=== PATIENT | male | born 1960 | race Caucasian/White ===

== ENCOUNTER → 2019-08-30 00:01 | Outpatient (RCR) | payer OTHER, SELFPAY | LOC: ONCMED 08-26 08:12 | PROVIDERS: Family Provider Electrodiagnostic Medicine; Visit Provider Internal Medicine Hematology & Oncology | DX: Z51.11 Encounter for antineoplastic chemotherapy (principal); C61 Malignant neoplasm of prostate; D70.1 Agranulocytosis secondary to cancer chemotherapy; T45.1X5A Adverse effect of antineoplastic and immunosuppressive drugs, initial encounter; Z79.818 Long term (current) use of other agents affecting estrogen receptors and estrogen levels | CPT/HCPCS: 80053; 84153; 85025; 96367; 96372; 96402; 96413; 99214; J1100; J2469; J2505; J3490; J7050 ×2; J9171; J9217 ==

== ENCOUNTER 2019-09-12 05:54 | Outpatient (RCR) | payer BC, SELFPAY ==
[2019-09-12 09:29] LABS: Basophils % 0.3 %; Eosinophils % 0.4 %; Hematocrit 35.7 % (42.0-52.0); Hemoglobin 11.3 g/dL (11.7-16.6); Lymphocytes % 10.1 %; Mean Corpuscular HGB Conc 31.7 g/dL (30.0-36.0); Mean Corpuscular Volume 88.4 fL (80-94); Mean Platelet Volume 10.7 fL (7.4-10.4); Monocytes # 0.6 10^3/uL (0.2-0.9); Monocytes % 6.3 %; Neutrophils # 8.1 10^3/uL (1.8-7.7); Neutrophils % 80.6 %; Nucleated Red Blood Cells % 0 %; Platelet Count 170 10^3/cmm (130-400); Red Blood Count 4.04 10^6/uL (4.1-5.3); Red Cell Distribution Width 15.9 % (12.1-15.1); White Blood Count 10.1 10^3/uL (4.0-10.0)
[2019-09-12 09:42] LABS: Prostate Specific Antigen 1.44 ng/mL (0-4)
--- NOTE | 2019-09-12 14:27 | ONC FU_ITS ---
Dr. Michaels follow up note Patient: Cj Gleason Unit #: [id number]: 1960 Dicatated By: Priyanka Michaels M.D.Date of Visit:Sep 12, 2019 Onc Med Follow-up/Prog Note History of Present Illness: Mr. Cj Gleason, is a 59 -year-old gentleman with history of elevated PSA, underwent ultrasound-guided prostate biopsy on 12/31/2018, final pathology showed diffuse disease with large volume in each core, primarily [place] 4+4 with one area on the right lateral apex of [place] 4+5, patient underwent bone scan which showed no evidence of metastatic disease but CT scan of abdomen pelvis shows multiple bilateral enlarged pelvic lymph nodes and his PSA the time of diagnosis was 92. Started on bicalutamide 50 mg by mouth daily on 01/07/2019 Patient was referred to uro oncology clinic at [facility], for evaluation for clinical trial if available he was seen by on 04/20/2019 and his impression was patient is a candidate for clinical trial including VISION trial as well as neoantigen immunotherapy trial. And also recommended pretrial treatment with ADT with Lupron every 3 months and docetaxel every 3 weeks ???6 as long as tolerated otherwise minimum 3 cycles and and dose can be adjusted based on tolerability, and low-dose prednisone daily .Started on Taxotere/low-dose prednisone/Lupron on 05/17/2019 Completed 6 cycles of docetaxel/low-dose prednisone on 08/29/2019 Along with 3 monthly Lupron complaining of left posterior lower rib cage pain, as per patient he was washing his face bending down and when he turned up, all of a sudden he felt severe shooting pain in his left posterior lower rib cage fact like somebody stabbed him. But denies any history of trauma to his chest wall. Denies any overlying skin changes. Pain is more with the movement but not when he is still. Rib films done 06/06/2019 showed normal left hip films Came for follow-up, denies any specific complaints, no fever or chills, no nausea or vomiting, no diarrhea constipation has a small skin lesion on left upper forearm ventrum and said he was dealing with drywood for fireplace may have a bite. Now improving on its own Medications: Atorvastatin Calcium 1 Tablet (of 40 mg) Oral daily, bc powder 1 Capsule PRN, Ibuprofen 1 Tablet (of 200 mg) Oral daily PRN, Levaquin Tablet Oral PRN, Lisinopril 1 Tablet (of 10 mg) Oral daily, LORazepam 0.5 - 1 Tablet (of 1 mg) Oral at bedtime, Prochlorperazine Maleate 1 Tablet (of 10 mg) Oral q 4 hours PRN, Tamsulosin HCl 1 Capsule (of 0.4 mg) Oral b.i.d., ZyrTEC Allergy 1 Tablet (of 10 mg) Oral daily Allergies: No Known Allergies. Review of Systems: Constitutional - Appetite is good and weight is stable. No fever, chills, hot flashes, or night sweats. Energy level is fair, ENMT - No sinus congestion, positive for slight drainage. No mouth sores. No sore throat or difficulty swallowing, Hematologic/Lymphatic - No abnormal bruising or bleeding, Respiratory - No shortness of breath. No cough. No pleuritic pain or hemoptysis, Cardiovascular - No angina pain. No palpitations, Gastrointestinal - No nausea, no vomiting. No heartburn or acid reflux. No diarrhea or constipation. No blood in the stool or black stools, Genitourinary (M) - No dysuria or hematuria. No urinary frequency. No urgency or incontinence, Musculoskeletal - Pt denies pain today, Neurologic - Slight headache, no dizziness. Pt reports tingling/numbness in fingers, nothing in toes, Psychiatric - No anxiety or depression. No insomnia. Vital Signs: Performed on Sep 12, 2019 10:24 Height - 71.00 in Weight - 284 lbs (HIGH) BSA - 2.45 sq.m BMI - 39.61 (HIGH) Temperature - 97.8 F (LOW) Pulse - 71 /min Respiration - 17 /min BP - 148/87 mm(hg) (HIGH) O2 Sat - 97 % Performance Status: 1 - No physically strenuous activity, but ambulatory and able to carry out light or sedentary work (e.g. office work, light house work). (ECOG) Physical Examination: ENMT - No oral exudates, ulcers, masses, thrush or mucositis. Oropharynx clear. Tongue normal, Respiratory - Lungs are clear to auscultation without rhonchi or wheezing, Cardiovascular - Regular rate and rhythm of heart, Abdomen - Non-tender, non-distended, Good bowel sounds. No guarding or rebound tenderness. No pulsatile masses, Extremities - no edema. Lab/Imaging: Test performed on Sep 12, 2019 08:59 WBC 10.1 10 3/uL RBC 4.04 10^12/L HGB 11.3 g/dL HCT 35.7 % MCV 88.4 fL MCH 28.0 pg MCHC 31.7 g/dL Platelet Count 170 10^9/L RDW 15.9 % MPV 10.7 fL Lymphocytes 1.0 10^9/L Neutrophils 0.0 10 3/uL Monocytes 0.6 10^9/L Eosinophils 0.0 10^9/L Basophils 0.0 10^9/L Neutrophil % 0.4 % Manual Lymphocytes 10.1 % Manual Monocytes 6.3 % Manual Eosinophils 0.4 % Manual Basophils 0.3 % NRBCs 0.0 /100 WBC PSA 1.44 ng/mL Test performed on Aug 26, 2019 08:17 Lymphocyte % 19.6 % Monocyte % 9.9 % Eosinophil % 0.2 % Basophils % 0.4 % Test performed on Aug 26, 2019 08:10 Sodium 141 mmol/L Potassium 3.8 mmol/L Chloride 105 mmol/L CO2 25 mmol/L Anion Gap 14.8 BUN 18 mg/dL Creatinine 1.0 mg/dL Cr Clearance (Est) 142.1300 mL/min eGFR 76.2 mL/min Glucose 90 mg/dl Calcium 9.5 mg/dL Protein, Total 5.8 g/dL Albumin 4.5 g/dL Globulin 1.3 gm/dL Bilirubin, Total 0.4 mg/dL ALT (SGPT) 24 U/L AST (SGOT) 15 U/L Alkaline Phosphatase 130 U/L Test performed on Jun 27, 2019 10:18 Testosterone, Total 2.5 ng/dL Test performed on May 31, 2019 09:45 A/G Ratio 1.9 absolute value Manual Segs 22.8 % Manual Bands 2.9 % Metamyelocytes 3.0 % Impression: Adenocarcinoma prostate status post ultrasound guided prostate biopsy done on 12/31/2018 final pathology report showed diffuse disease with large volume in each core, primarily [place] 4+4 with one area on the right lateral apex of [place] 4+5 CT scan of abdomen pelvis done on 01/06/2019 showed pelvic lymphadenopathy, right iliac chain 18 mm, left iliac chain 9 mm, left pelvic sidewall 12 mm and presacral 7 mm lymph node. No inguinal or mesenteric lymph node enlargement seen no definite osseous metastatic disease. Questionable left L1 spinous process fracture Bone scan done on 01/06/2019 showed left posterior T12 vertebral level activity with no radiographic correlation otherwise unremarkable. as per recommendation by we will consider ADT with Lupron 22.5 mg every 3 months and docetaxel 75 mg/m??? every 3 weeks ???6, as long as tolerated and adjust dose if needed and plan to give him at least 3 cycles of chemotherapy prior to enrolling on clinical trial which include VISION trial or with neoantigen immunotherapy. And also consider low-dose prednisone 5 mg by mouth twice a day along with docetaxel treatment. We'll discontinue Casodex prescribed by urology. Started on docetaxel every 3 weeks and low-dose prednisone on 05/17/2019 and Completed 6 cycles of docetaxel/low-dose prednisone on 08/29/2019 started on 3 monthly dose of Lupron on 05/17/2019 Plan: Discussed with patient regarding his labs white blood count 10.1 hemoglobin 11.3 crit 35.7 platelets 170,000 absolute neutrophil count 10,100 Clinically, patient is doing well now recovering from docetaxel. CBC has recovered well, physically patient is feeling much better and improving, only question was left forearm skin lesion probably due to insect bite or questionable spider bite but is improving no skin sloughing was noted. No tenderness or discharge seen Patient was advised watch if there is a worsening then he need to go to emergency room for evaluation otherwise hopefully it will resolve. Patient is scheduled to go to urology oncology clinic at [facility] for evaluation for clinical trial on 09/21/2018. As patient will begin clinical trial so we will see him on as needed basis. Signed By: Priyanka Michaels M.D. <<Signature on File>>
== END 2019-09-30 23:59 | disposition home or self-care (01) ==
LOC: ONCMED 05:54
PROVIDERS: Family Provider Electrodiagnostic Medicine; PCP Electrodiagnostic Medicine; Visit Provider Internal Medicine Hematology & Oncology
DX: C61 Malignant neoplasm of prostate (principal); Z79.899 Other long term (current) drug therapy; Z79.818 Long term (current) use of other agents affecting estrogen receptors and estrogen levels; Z87.891 Personal history of nicotine dependence
CPT/HCPCS: 36415; 84153; 85025; 99214

== ENCOUNTER 2020-01-14 12:29 | Inpatient (IN) | payer BC, SELFPAY ==
--- NOTE | 2020-01-13 | SCC_ITS ---
PROCEDURE DONE: Bronchoscopy 1.8 seconds of fluoroscopic guidance, for a cumulative dose of 21.27 mGy, was provided to Dr. Sy by the radiology department. C-arm images of the chest were saved for the patient's permanent record. [facility]
[2020-01-14] VITALS (39 sets, daily range): BP systolic 64–151; BP diastolic 55–105; PULSE 76–187; RESP 14–43; TEMP 36.8; O2SAT 87–97; BMI 36.2
--- NOTE | 2020-01-14 12:59 | XRR_ITS ---
PROCEDURE INFORMATION: Exam: XR Chest, 1 View Exam date and time: 01/14/2020 1:01 PM Age: 59 years old Clinical indication: Shortness of breath; Additional info: Dyspnea TECHNIQUE: Imaging protocol: XR of the chest Views: 1 view. COMPARISON: CR Chest 1 [place] [id number] 08/17/2017 11:38 PM FINDINGS: Lungs: Stable right calcified hilar nodes and/or mediastinal nodes and/or lung nodules consistent with old granulomatous disease. Pleural space: Unremarkable. No pleural effusion. No pneumothorax. Heart/Mediastinum: Unremarkable. No cardiomegaly. Bones/joints: Unremarkable. XR/XR chest 1V portable [id number] IMPRESSION: No acute findings.
--- NOTE | 2020-01-14 13:01 | ED_ITS ---
HPI - Arrhythmia/Palpitations General: Chief Complaint: Arrhythmia/Palpitations Stated Complaint: high hr Time Seen by Provider: 01/14/20 12:52 History of Present Illness: HPI narrative: Patient is a 59 year old male presenting with a high heart rate. He notes that his heart rate has been high - at least 150 and up to 170 - when he checked h i BP at home - since THURSDAY. He denies chest pain or feeling like his heart is racing, but he has been very short of breath with mild exertion and has not been able to sleep at night. He notes that he has stage 4 prostate cancer with mets to the bone in a few places. He was admitted at [place] for his cancer until a few weeks ago and has been on prednisone - he says he was on 200 mg twice a day and is being tapered off - now on 40 mg twice a day. He doesn't think any other medicines have been changed recently. He has never had a blood clot and doesn't think he on any blood thinners. his PCP locally is Dr. Baker. He doesn't think he has had a heart attack but has been seen for angina before. He also notes that on Thursday his legs were swollen and tender, but that has improved. MD complaint: rapid heart beat Onset (ago): day(s) (6) Duration: constant Severity: severe Context: occurred during rest Associated symptoms: Reports muscle cramps and short of breath; Deny nausea Review of Systems General: Reports: 10 or more systems reviewed and unremarkable except in HPI and below Const: Reports: fatigue and change in sleep pattern; Denies: fever(s), chills or body aches Eyes: Denies: change in vision ENMT: Denies: odynophagia Card: Reports: swelling of feet/ankles, dyspnea on exertion and orthopnea; Denies: chest pain or lightheadedness Resp: Reports: dyspnea; Denies: productive cough or non-productive cough GI: Reports: constipation; Denies: abdominal pain or nausea : Denies: difficulty urinating or dysuria Musc: Reports: muscle cramps Skin/Breast: Reports: rash Neuro: Denies: headache(s), numbness in extremities or weakness in extremities Psych: Reports: sleeping less; Denies: depression Endo: Reports: polydipsia Benjamín/Lymph: Reports: easy bruising; Denies: easy bleeding PFS ED PFSH: Medical History (Updated 01/14/20 @ 18:33 by Ping Carcamo MD) Chronic steroid use Hyperlipidemia Metastasis Prostate cancer Social History Smoking and tobacco status: never smoked Physical Exam Const: COMMON NORMALS: patient oriented x3 HENMT: HEAD & SCALP: normal to inspection FACE & SINUS: normal facial exam Eye: COMMON NORMALS: Equal, round and reactive pupils present and EOMs intact bilaterally PUPIL: Yes Equal, round and reactive pupils present Neck/C-Spine: COMMON NORMALS: full ROM and no JVD Lymph: LYMPHATIC: no lymphadenopathy noted Chest: COMMONS NORMALS: normal inspection of the chest Resp: EFFORT & INSPECTION: Yes able to speak in complete sentences and Yes tachypneic AUSCULTATION: no rales, no rhonchi and bronchial breath sounds Cardio: COMMON NORMALS: no JVD, regular rate and Peripheral pulses 2+ throughout; negative for No murmurs present (Cardio) RATE: regular rate and tachycardic PERIPHERAL PULSES: Peripheral pulses 2+ throughout GI: COMMON NORMALS: Normal to inspection, nondistended, normoactive bowel sounds present, Soft to palpation and non-tender PALPATION: Yes Soft to palpation : COMMON NORMALS: Yes no CVA tenderness BLADDER/KIDNEY EXAM: Yes no CVA tenderness Back/Pelvis: COMMON NORMALS: no CVA tenderness and thoracic and lumbar spine n ormal to inspection Extremity: COMMON NORMALS: normal to inspection, full ROM, no calf tenderness and no pedal edema Neuro: COMMON NORMALS: patient oriented x3, moves all extremities and no sensory deficits noted Psych: COMMON NORMALS: mental status grossly normal, Normal thought process present, cooperative, normal affect, speech normal and activity/motor behavior normal SPEECH: Yes normal speech THOUGHT PROCESS: Normal thought process present Skin: RASHES: rashes noted (bilateral lower legs - right greater than left) Course ED course: multiple re-evaluations, medication adjustments, repeated fluid boluses, interpretation of multiple labs and tests. Reevaluation(s): Reevaluation #1: HR still 180 - cardizem 10 mg bolus and drip given and no change. Will rebolus and increase drip. Patient continues to be comfortable with no complaints. BP 133/90. Time: 14:47 Reevaluation #2: CT chest canceled - patient has a contrast allergy and the lidar technician also reports that a CT cannot be done unless the HR is less than 120 in order to get a useful contrast bolus in the vessels. Time: 17:25 Consultations: Consultation #1: Yun - discussed potential treatments, cardizem vs esmolol vs. amiodarone. He will come see the patient in the ED to decide which he would prefer. Vital Signs: Vital signs: Vital Signs Temperature 98.3 F 01/14/20 12:55 Pulse Rate 184 H 01/14/20 18:00 Respiratory Rate 23 H 01/14/20 18:00 Blood Pressure 151/98 01/14/20 18:00 Pulse Oximetry 89 L 01/14/20 18:00 MDM - Arrhythmia/Palpitations Lab Data: Labs: Lab Results 01/14/20 01/14/20 01/14/20 Range/Units 13:27 13:35 13:35 WBC 11.4 H (4.0-10.0) 10^3/ uL RBC 4.95 (4.1-5.3) 10^6/u L Hgb 13.0 (11.7-16.6) g/dL Hct 40.6 L (42.0-52.0) % MCV 82.0 (80-94) fL MCH 26.3 L (28.0-34.0) pg MCHC 32.0 (30.0-36.0) g/dL RDW 17.9 H (12.1-15.1) % Plt Count 121 L (130-400) 10^3/c mm MPV 9.7 (7.4-10.4) fL Neut % (Auto) 92.3 % Lymph % (Auto) 2.0 % [place] % (Auto) 4.5 % Eos % (Auto) 0.0 % Baso % (Auto) 0.1 % Neut # (Auto) 10.5 H (1.8-7.7) 10^3/u L Lymph # (Auto) 0.2 L (0.8-4.8) 10^3/u L [place] # (Auto) 0.5 (0.2-0.9) 10^3/u L Eos # (Auto) 0.0 (0.0-0.8) 10^3/u L Baso # (Auto) 0.0 (0.0-0.1) 10^3/u L Nucleated RBC % (a uto) 0 % Nucleated RBCs # 0.0 /100WBC PT 13.40 H (10.5-13.3) SECO NDS INR 0.99 (0.8-1.2) D-Dimer 4.51 H (0-0.59) ug/mIFE U Sodium (136-145) mmol/L Potassium (3.5-5.1) mmol/L Chloride (98-107) mmol/L Carbon Dioxide (22-29) mmol/L Anion Gap (5-19) BUN (8-23) mg/dL Creatinine (0.7-1.2) mg/dL GFR Calculation (90-130) mL/min Glucose (65-115) mg/dL Calculated Osmolal ity (285-295) mOsm/k g Lactate (0.5-2.2) mmol/L Calcium (8.5-10.5) mg/dL Magnesium (1.7-2.3) mg/dL Iron (59-158) ug/dL TIBC mcg/dl % Saturation (20-50) % Unsat Iron Binding (112-347) ug/dL Total Bilirubin (0.15-1.2) mg/dL AST (0-40) U/L ALT (0-41) U/L Alkaline Phosphata se (40-130) IU/L Troponin T Baselin e (0-15) ng/mL Troponin T 120 Min [place] (0-15) ng/mL Delta Troponin T (0-10) ABS# NT-Pro-B Natriuret Pep (0-125) pg/mL Total Protein (6.6-8.7) g/dL Albumin (3.5-5.2) g/dL Globulin (1.3-4.6) g/dL Procalcitonin (0-0.5) ng/mL Urine Color Yellow (Yellow) Urine Appearance Clear (CLEAR) Urine pH 7 (5-7) Ur Specific Gravit y 1.005 (1.005-1.030) Urine Protein Neg (Negative) Urine Glucose (UA) Norm (Normal) Urine Ketones Negative (Negative) Urine Blood Neg (Negative) Urine Nitrate Negative (Negative) Urine Bilirubin Neg (NEGATIVE) Urine Urobilinogen 1 H (Negative) mg/dL Ur Leukocyte Amy ase Negative (Negative) 01/14/20 01/14/20 01/14/20 Range/Units 13:35 13:35 13:35 WBC (4.0-10.0) 10^3/ uL RBC (4.1-5.3) 10^6/u L Hgb (11.7-16.6) g/dL Hct (42.0-52.0) % MCV (80-94) fL MCH (28.0-34.0) pg MCHC (30.0-36.0) g/dL RDW (12.1-15.1) % Plt Count (130-400) 10^3/c mm MPV (7.4-10.4) fL Neut % (Auto) % Lymph % (Auto) % [place] % (Auto) % Eos % (Auto) % Baso % (Auto) % Neut # (Auto) (1.8-7.7) 10^3/u L Lymph # (Auto) (0.8-4.8) 10^3/u L [place] # (Auto) (0.2-0.9) 10^3/u L Eos # (Auto) (0.0-0.8) 10^3/u L Baso # (Auto) (0.0-0.1) 10^3/u L Nucleated RBC % (a uto) % Nucleated RBCs # /100WBC PT (10.5-13.3) SECO NDS INR (0.8-1.2) D-Dimer (0-0.59) ug/mIFE U Sodium 138 (136-145) mmol/L Potassium 4.7 (3.5-5.1) mmol/L Chloride 102 (98-107) mmol/L Carbon Dioxide 23 (22-29) mmol/L Anion Gap 17.7 (5-19) BUN 25 H (8-23) mg/dL Creatinine 1.0 (0.7-1.2) mg/dL GFR Calculation 76.2 L (90-130) mL/min Glucose 146 H (65-115) mg/dL Calculated Osmolal ity 285 (285-295) mOsm/k g Lactate 2.4 H (0.5-2.2) mmol/L Calcium 8.3 L (8.5-10.5) mg/dL Magnesium 2.5 H (1.7-2.3) mg/dL Iron (59-158) ug/dL TIBC mcg/dl % Saturation (20-50) % Unsat Iron Binding (112-347) ug/dL Total Bilirubin 0.4 (0.15-1.2) mg/dL AST 9 (0-40) U/L ALT 38 (0-41) U/L Alkaline Phosphata se 61 (40-130) IU/L Troponin T Baselin e 106 H* (0-15) ng/mL Troponin T 120 Min [place] (0-15) ng/mL Delta Troponin T (0-10) ABS# NT-Pro-B Natriuret Pep 3660 H (0-125) pg/mL Total Protein 5.0 L (6.6-8.7) g/dL Albumin 3.5 (3.5-5.2) g/dL Globulin 1.5 (1.3-4.6) g/dL Procalcitonin (0-0.5) ng/mL Urine Color (Yellow) Urine Appearance (CLEAR) Urine pH (5-7) Ur Specific Gravit y (1.005-1.030) Urine Protein (Negative) Urine Glucose (UA) (Normal) Urine Ketones (Negative) Urine Blood (Negative) Urine Nitrate (Negative) Urine Bilirubin (NEGATIVE) Urine Urobilinogen (Negative) mg/dL Ur Leukocyte Amy ase (Negative) 01/14/20 01/14/20 Range/Units 15:56 15:56 WBC (4.0-10.0) 10^3/ uL RBC (4.1-5.3) 10^6/u L Hgb (11.7-16.6) g/dL Hct (42.0-52.0) % MCV (80-94) fL MCH (28.0-34.0) pg MCHC (30.0-36.0) g/dL RDW (12.1-15.1) % Plt Count (130-400) 10^3/c mm MPV (7.4-10.4) fL Neut % (Auto) % Lymph % (Auto) % [place] % (Auto) % Eos % (Auto) % Baso % (Auto) % Neut # (Auto) (1.8-7.7) 10^3/u L Lymph # (Auto) (0.8-4.8) 10^3/u L [place] # (Auto) (0.2-0.9) 10^3/u L Eos # (Auto) (0.0-0.8) 10^3/u L Baso # (Auto) (0.0-0.1) 10^3/u L Nucleated RBC % (a uto) % Nucleated RBCs # /100WBC PT (10.5-13.3) SECO NDS INR (0.8-1.2) D-Dimer (0-0.59) ug/mIFE U Sodium (136-145) mmol/L Potassium (3.5-5.1) mmol/L Chloride (98-107) mmol/L Carbon Dioxide (22-29) mmol/L Anion Gap (5-19) BUN (8-23) mg/dL Creatinine (0.7-1.2) mg/dL GFR Calculation (90-130) mL/min Glucose (65-115) mg/dL Calculated Osmolal ity (285-295) mOsm/k g Lactate (0.5-2.2) mmol/L Calcium (8.5-10.5) mg/dL Magnesium (1.7-2.3) mg/dL Iron 51 L (59-158) ug/dL TIBC 223 mcg/dl % Saturation 22.8 (20-50) % Unsat Iron Binding 172 (112-347) ug/dL Total Bilirubin (0.15-1.2) mg/dL AST (0-40) U/L ALT (0-41) U/L Alkaline Phosphata se (40-130) IU/L Troponin T Baselin e (0-15) ng/mL Troponin T 120 Min [place] 96.57 H (0-15) ng/mL Delta Troponin T -9.43 L (0-10) ABS# NT-Pro-B Natriuret Pep (0-125) pg/mL Total Protein (6.6-8.7) g/dL Albumin (3.5-5.2) g/dL Globulin (1.3-4.6) g/dL Procalcitonin 0.07 (0-0.5) ng/mL Urine Color (Yellow) Urine Appearance (CLEAR) Urine pH (5-7) Ur Specific Gravit y (1.005-1.030) Urine Protein (Negative) Urine Glucose (UA) (Normal) Urine Ketones (Negative) Urine Blood (Negative) Urine Nitrate (Negative) Urine Bilirubin (NEGATIVE) Urine Urobilinogen (Negative) mg/dL Ur Leukocyte Amy ase (Negative) EKG Data^: EKG 1: EKG interpretation date: 01/14/20 EKG interpretation time: 13:01 Interpretation: rate 186 - rhythm intederminant but regular. ST depression likely rate related. narrow complex Other EKG comments: Chest X-Ray 01/14/20 12:59 IMPRESSION: No acute findings. Critical Care Time Critical Care Time: Critical Care Time: Yes Total Critical Care Time: 60 Attestation: I spent 60 minutes on this patient. He was started on a cardizem bolus and drip and this was repeated and titrated multiple times without any response. We then tried IV metoprolol and his HR dropped to 125 and was consistent with flutter on the monitor although I did not get an EKG before it went back up. His BP got low and he was given another bolus of fluids, the cardizem was stopped, and another 5 mg IV metoprolol dose was given. Again it brought the HR down, but it went back up again. I ordered an esmolol drip and consulted the hospitalist. He requested to not do esmolol and will restart the cardizem and give oral metoprolol. He came to see the patient in the ED. I have ordered a PE CTA due to his risk with cancer, recent hospitalization and elevated d-dimer. Discharge Plan Discharge Patient Disposition: Admitted As Inpatient Admit Provider: Alfonso Razo Clinical Impression: Atrial flutter, Acute dyspnea, D-dimer, elevated Condition: Stable Coding Level of Care Code ED Laboratory Coordinator for [facility] Fwd Exam Comprehensive
[2020-01-14 13:46] LABS: Basophils % 0.1 %; Hematocrit 40.6 % (42.0-52.0); Lymphocytes # 0.2 10^3/uL (0.8-4.8); Mean Corpuscular Hemoglobin 26.3 pg (28.0-34.0); Mean Platelet Volume 9.7 fL (7.4-10.4); Monocytes # 0.5 10^3/uL (0.2-0.9); Monocytes % 4.5 %; Neutrophils # 10.5 10^3/uL (1.8-7.7); Neutrophils % 92.3 %; Nucleated Red Blood Cells % 0 %; Platelet Count 121 10^3/cmm (130-400); Red Blood Count 4.95 10^6/uL (4.1-5.3); Red Cell Distribution Width 17.9 % (12.1-15.1); White Blood Count 11.4 10^3/uL (4.0-10.0)
[2020-01-14] MEDS: sodium chloride 0.9% 500 ML 999 ML IV ×3 (13:47→15:48)
[2020-01-14 13:51] LABS: Add Urine Microscopic? NO
[2020-01-14 13:58] LABS: Bilirubin Urine Neg (NEGATIVE); Blood Urine Neg (Negative); Glucose Urine UA Norm (Normal); Ketones Urine Negative (Negative); Leukocyte Esterase Urine Negative (Negative); Nitrate Urine Negative (Negative); Protein Urine Neg (Negative); Specific Gravity, Urine 1.005 (1.005-1.030); Urine Appearance Clear (CLEAR); Urine Color Yellow (Yellow); Urobilinogen Urine 1 mg/dL (Negative); pH Urine 7 (5-7)
[2020-01-14 14:04] LABS: INR 0.99 (0.8-1.2)
[2020-01-14 14:10] LABS: Lactate (Lactic Acid level) 2.4 mmol/L (0.5-2.2)
[2020-01-14 14:14] LABS: D Dimer 4.51 ug/mIFEU (0-0.59)
[2020-01-14 14:20] LABS: Alanine Aminotransferase 38 U/L (0-41); Albumin Level 3.5 g/dL (3.5-5.2); Alkaline Phosphatase 61 IU/L (40-130); Anion Gap 17.7 (5-19); Aspartate Amino Transferase 9 U/L (0-40); Blood Urea Nitrogen 25 mg/dL (8-23); Calcium 8.3 mg/dL (8.5-10.5); Carbon Dioxide 23 mmol/L (22-29); Chloride 102 mmol/L (98-107); Creatinine Clr Calc Pharmacy 102.6151; Globulin 1.5 g/dL (1.3-4.6); Glomerular Filtration Rate 76.2 mL/min (90-130); Glucose 146 mg/dL (65-115); Magnesium 2.5 mg/dL (1.7-2.3); NT Pro B Type Natriuretic Pept 3660 pg/mL (0-125); Osmolality Calculated 285 mOsm/kg (285-295); Potassium 4.7 mmol/L (3.5-5.1); Sodium 138 mmol/L (136-145); Total Bilirubin 0.4 mg/dL (0.15-1.2)
[2020-01-14 14:38] LABS: Troponin(5th) Baseline 106 ng/mL (0-15)
--- NOTE | 2020-01-14 14:38 | PC.NURSE ---
Troponin 106
[2020-01-14] MEDS: enoxaparin 120 mg/0.8 mL Syringe SUBCUT (15:22)
[2020-01-14] MEDS: metoprolol tartrate 1 mg/1 mL SDV 5 mL 5 MG IV (15:48)
[2020-01-14 16:21] LABS: Troponin 5 2HR 96.57 ng/mL (0-15)
[2020-01-14] MEDS: metoprolol tartrate 50 mg Tablet PO (17:07)
--- NOTE | 2020-01-14 17:08 | P.HP_ITS ---
Providers/Chief Complaint Primary Care Provider: Jay Baker DO Chief Complaint: Palpitations, high heart rate History of Present Illness Cj Gleason is a 59 year old male with past medical history of prostate cancer with metastasis to bone in clinical trial treatment at [facility] with recent admission to [place] with for more than 11 days because of diarrhea where he was found to have colonic edema for which he is on steroid taper. Patient states since Thursday, today is Thursday patient has been having palpitations with his heart rate going up to 130s on his blood pressure monitor which he attributed to steroid taper. For last 2 days his heart rate is going up to 180 so he presented to the ER. His palpitations are all associated with shortness of breath which gets aggravated on mild exertion for last 3 days and on lying down flat. He does not have any chest pain, nausea, vomiting, dizziness, falls, headache, weakness in any of his arms, bleeding from anywhere, any diarrhea. In the ER patient was found to have be in atrial fibrillation/flutter with heart rate going up to 180s. Patient till now has received 2 boluses of Cardizem 10 mg with Cardizem drip going up to 13 and 2 boluses of Lopressor 5 which did bring down his heart rate down 200s but went up back to 180s persistently. On examination patient is lying comfortably in bed, pleasant, very conversant denies of having any difficulty in breathing during normal conversation. Patient was [facility] more than 11 days. He denies of having any symptoms of runny nose, cough, fever, flulike symptoms, sick contacts other than the fact that patient was admitted at [place]. Review of Systems Const: Denies: fever(s), chills, body aches, change in appetite, malaise, night sweats, diaphoresis, change in sleep pattern, daytime sleepiness or snoring Eyes: Denies: change in vision, blurry vision, photophobia, eye discomfort or eye discharge ENMT: Denies: throat pain, enlarged tonsils, hoarseness, mouth pain, oral sores, dry mouth, tinnitus, nasal congestion or post nasal drip Card: Reports: palpitations, irregular heart rhythm, lightheadedness and orthopnea; Denies: chest pain, edema, swelling of feet/ankles, syncope, pre-syncope, dysp dora on exertion, leg pain with exertion or acrocyanosis Resp: Reports: dyspnea and non-productive cough; Denies: productive cough, wheezing, stridor, pain on inspiration, change in phlegm color, hemoptysis or chest congestion GI: Denies: abdominal pain, nausea, vomiting, hematemesis, coffee ground emesis, dysphagia, heartburn, diarrhea, constipation, bloating, GI cramping, change in bowel habits, pain on defecation, hematochezia or melena : Denies: flank pain, difficulty urinating, dysuria, urinary frequency, urinary urgency, urinary hesitancy, urinary dribbling, difficulty starting urination, change in urine stream, nocturia or hematuria Musc: Denies: neck pain, back pain, extremity pain, joint pain, joint swelling, joint redness, joint stiffness or limited range of motion Neuro: Denies: headache(s), numbness in extremities, weakness in extremities, sensory changes, lack of coordination, difficulty walking, frequent falls, dizziness, vertigo, confusion, Slurred speech present, difficulty communicating thoughts or seizure-like activity Psych: Denies: anxiety, depression, mood swings, panic attacks, hopelessness or irritability Endo: Denies: polyuria, polydipsia, tired all the time, cold intolerance, excessive sweating, flushing or heat intolerance Benjamín/Lymph: Denies: easy bruising or easy bleeding All/Imm: Denies: tongue swelling, facial swelling or acute wheezing Medications/Allergies Home Medications Medication Instructions Recorded Confirmed Last Taken Type Bc Powder 1 packet PO PRN 01/14/20 01/14/20 Unknown History atorvastatin 40 mg PO DAILY 01/14/20 01/14/20 01/14/20 06:00 History cetirizine [Zyrtec] 10 mg PO DAILY PRN 01/14/20 01/14/20 Unknown History hydrocodone-acetaminophen 1 tab PO Q6H PRN 01/14/20 01/14/20 Unknown History loperamide 2 mg PO QID PRN 01/14/20 01/14/20 Unknown History lorazepam 1 mg PO TID PRN 01/14/20 01/14/20 01/14/20 06:00 History multivitamin [Multiple Vitamins] 1 tab PO DAILY 01/14/20 01/14/20 01/14/20 History pantoprazole 40 mg PO BID 01/14/20 01/14/20 01/14/20 History prednisone See Rx Instructions .ROUTE .COMPLEX 01/14/20 01/14/20 01/14/20 History prochlorperazine maleate 10 mg PO Q4H PRN 01/14/20 01/14/20 Unknown History sulfamethoxazole-trimethoprim See Rx Instructions .ROUTE .COMPLEX 01/14/20 01/14/20 01/13/20 History tamsulosin 0.4 mg PO BID 01/14/20 01/14/20 01/14/20 History Allergies Allergy/AdvReac Type Severity Reaction Status Date / Time Iodinated Contrast Media Allergy ALGY-Bliste Verified 01/14/20 13:43 r PFSH Acute PFSH: Medical History (Updated 01/14/20 @ 18:33 by Ping Carcamo MD) Chronic steroid use Hyperlipidemia Metastasis Prostate cancer Social History Smoking and tobacco status: never smoked Vitals/I&O/Wt Last Vital Signs Temp 98.3 F 01/14/20 12:55 Pulse 178 H 01/14/20 16:00 Resp 20 H 01/14/20 16:00 BP 125/101 01/14/20 16:00 Pulse Ox 94 01/14/20 16:00 01/14/20 01/14/20 01/14/20 06:59 14:59 22:59 Intake Total 501.917 / 501.917 532.550 / 1034.467 Balance 501.917 / 501.917 532.550 / 1034.467 Weight last 48 hrs Weight 117.934 kg Physical Exam Narrative: EXAM NARRATIVE: General: No acute distress, AO x3, pleasant gentleman HEENT: PERRLA, pupils bilaterally equal and reactive Chest: Normal vesicular breath sounds, bilateral lower zones fine crackles, equal good air entry bilaterally CVS: S1-S2 irregular irregular, tachycardia, JVD mildly elevated. Abdomen: Soft, nontender, no organomegaly, bowel sounds present Neuro: No focal deficits, no facial deformity, AO x3, power 5/5 in all limbs Extremities: Right lower limb mildly more swollen as compared to left. Bilateral lower limb swelling present. Data : 01/15/20 04:37 01/15/20 04:37 A&P Assessment and plan (1) Atrial fibrillation: Status: Acute (2) Prostate cancer: Status: Acute (3) Metastasis: Status: Acute (4) Chronic steroid use: Status: Acute (5) COVID-19 ruled out: Status: Acute (6) Hyperlipidemia: Status: Acute Additional A&P Information 59-year-old man with past medical history of prostate cancer on clinical trial with recent discharge from [facility] on steroid taper comes in with palpitations and tachycardia going on for last 6 days found to be in atrial fibrillation. Atrial fibrillation: Patient most likely has atrial flutter with fibrillation. Heart rate in the ER is in 180s. Patient has already received 2 boluses of Cardizem with Cardizem running at 13 and has received 2 boluses of Lopressor 5 mg. We will ask for a bolus of Cardizem at 10. Metoprolol 50 mg twice daily with first dose stat right now. If patient's heart rate does not improve the next 30 minutes we will start him on a dig load as worried about blood pressures dropping with multiple Cardizem pushes. Echocardiogram to rule out LA thrombus, for ejection fraction, structural abnormalities. Storm vas score 2, has bled score 1. Discussed with patient for need of him being on anticoagulation given that he has been on atrial fibrillation/flutter for more than 4 days now. Patient is agreeable. We will start patient on Eliquis 5 mg twice daily. Patient already received Lovenox full dose in the ER. Shortness of breath: Most likely because of heart failure from persistent tachycardia. Patient received 15 cc in the ER. IV Lasix 20 mg stat as patient is Lasix na?ve. Monitor input output. Daily weights. Patient has elevated d-dimer. Recent hospitalization for more than 11 days advanced which cannot rule out DVT/PE also given the history of active cancer. We will request for CTA PE protocol, lower limb Dopplers. COVID-19 rule out: Patient was recently admitted for 11 days [facility]. COVID-19 already sent from the ER. We will put on isolation till results come back. Prostate cancer with metastasis to bone: Patient is on steroid taper as per his oncologist. We will continue the same. We will request documents from [facility] regarding his recent admission. Continue with prophylactic Bactrim dose. Continue with tamsulosin 0.4 mg twice daily. Check TSH, lipid panel, HbA1c. Continue patient's chronic medications like hydrocodone, Ativan, pro-chlor perazine. Insulin sliding scale as patient is on high-dose steroids. Full code. Alejandro will also work as DVT prophylaxis Cardiac diet. 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
[2020-01-14 18:04] LABS: Procalcitonin 0.07 ng/mL (0-0.5)
[2020-01-14 18:14] LABS: Iron 51 ug/dL (59-158); Percent Saturation 22.8 % (20-50); Total Iron Binding Capacity 223 mcg/dl; Unsaturated Iron Binding 172 ug/dL (112-347)
[2020-01-14] MEDS: digoxin 250 mcg/ml INJ 2 mL 500 MCG IVP (18:37)
--- NOTE | 2020-01-14 18:59 | ECG_ITS ---
Measurements Intervals [place] Rate: 184 P: NM: 0 QRS: 12 QRSD: 74 T: 205 QT: 240 QTc: 420 ATRIAL FLUTTER WITH RVR POSSIBLE RIGHT VENTRICULAR CONDUCTION DELAY ST DEVIATION AND MODERATE T-WAVE ABNORMALITY, CONSIDER ANTEROLATERAL ISCHEMIA ST DEVIATION AND MODERATE T-WAVE ABNORMALITY, CONSIDER INFERIOR ISCHEMIA Compared to ECG 08/17/2017 22:51:00 T-wave abnormality now present Possible ischemia now present Sinus bradycardia no longer present Electronically Signed On 01-16-2020 20:31:18 CDT by Gabriella Huynh M.D. [id number]
[2020-01-14 19:00] LABS: Thyroid Stimulating Hormone 1.44 uIU/mL (0.27-4.20)
[2020-01-14 19:08] LABS: Estmated Average Glucose 163; Hemoglobin A1C 7.3 % (4.0-6.0)
[2020-01-14] MEDS: apixaban 5 mg Tablet PO (19:52)
[2020-01-14] MEDS: tamsulosin 0.4 mg Capsule PO (19:52)
[2020-01-14] MEDS: predniSONE 20 mg Tablet 40 MG PO (19:52)
[2020-01-14] MEDS: pantoprazole DR 40 mg Tablet PO (19:52)
[2020-01-14 20:22] LABS: Troponin 5 6HR Delta 7.2 ng/L (0-12)
[2020-01-14] MEDS: HYDROcodone-acetaminophen 5-325 mg Tablet 1 TAB PO (20:38)
[2020-01-14 20:47] LABS: Troponin 5 6HR 113.2 ng/mL (0-15)
[2020-01-15] VITALS (23 sets, daily range): BP systolic 86–132; BP diastolic 67–92; PULSE 72–141; RESP 14–28; TEMP 36.4–36.8; O2SAT 88–96
[2020-01-15] MEDS: HYDROcodone-acetaminophen 5-325 mg Tablet 1 TAB PO ×2 (01:05)
[2020-01-15] MEDS: digoxin 250 mcg/ml INJ 2 mL IVP ×2 (01:05→10:11)
[2020-01-15] MEDS: metoprolol tartrate 1 mg/1 mL SDV 5 mL 5 MG IV (03:23)
[2020-01-15 05:01] LABS: Hematocrit 36.5 % (42.0-52.0); Hemoglobin 11.7 g/dL (11.7-16.6); Lymphocytes # 0.3 10^3/uL (0.8-4.8); Lymphocytes % 3.6 %; Mean Corpuscular HGB Conc 32.1 g/dL (30.0-36.0); Mean Corpuscular Hemoglobin 26.9 pg (28.0-34.0); Mean Corpuscular Volume 83.9 fL (80-94); Mean Platelet Volume 9.6 fL (7.4-10.4); Monocytes # 0.3 10^3/uL (0.2-0.9); Monocytes % 3.6 %; Neutrophils % 91.7 %; Nucleated Red Blood Cells % 0 %; Platelet Count 101 10^3/cmm (130-400); Red Blood Count 4.35 10^6/uL (4.1-5.3); Red Cell Distribution Width 17.6 % (12.1-15.1); White Blood Count 7.6 10^3/uL (4.0-10.0)
[2020-01-15 05:25] LABS: Alanine Aminotransferase 33 U/L (0-41); Albumin Level 2.9 g/dL (3.5-5.2); Alkaline Phosphatase 57 IU/L (40-130); Anion Gap 16.4 (5-19); Aspartate Amino Transferase 8 U/L (0-40); Blood Urea Nitrogen 21 mg/dL (8-23); Calcium 8.4 mg/dL (8.5-10.5); Carbon Dioxide 24 mmol/L (22-29); Chloride 104 mmol/L (98-107); Globulin 1.6 g/dL (1.3-4.6); Glomerular Filtration Rate 86.1 mL/min (90-130); Glucose 142 mg/dL (65-115); Osmolality Calculated 289 mOsm/kg (285-295); Potassium 4.4 mmol/L (3.5-5.1); Sodium 140 mmol/L (136-145); Total Bilirubin 0.4 mg/dL (0.15-1.2); Total Protein 4.5 g/dL (6.6-8.7)
[2020-01-15 05:29] LABS: Chol HDL Ratio 3.21 mg/dL (1.0-5.00); Cholesterol 154 mg/dL (0-200); HDL Cholesterol 48 mg/dL (60-100); LDL Cholesterol Calculated 81 mg/dL (50-129); Triglycerides 127 mg/dL (0-150); VLDL Cholestrol Calculation 25 mg/dL (0-30)
--- NOTE | 2020-01-15 06:00 | USR_ITS ---
PROCEDURE INFORMATION: Exam: US Duplex Lower Extremity Veins, Bilateral Exam date and time: 01/15/2020 3:43 PM Age: 59 years old Clinical indication: Swelling (edema) of limb; Lower extremity, bilateral; Additional info: R/O dvt TECHNIQUE: Imaging protocol: Real-time duplex ultrasound of the extremities with 2-D musa scale, color Doppler flow and spectral waveform analysis with image documentation. Complete exam focused on the bilateral lower extremity veins. COMPARISON: No relevant prior studies available. FINDINGS: Right deep veins: Unremarkable. The common femoral, femoral, proximal profunda femoral and popliteal veins are patent without thrombus. Normal Doppler waveforms. Normal compressibility and/or augmentation response. There is a small vessel in the mid calf in the region of the gastrocnemius muscle with possible thrombus. Right superficial veins: Saphenofemoral junction is patent without thrombus. Left deep veins: Unremarkable. The common femoral, femoral, proximal profunda femoral and popliteal veins are patent without thrombus. Normal Doppler waveforms. Normal compressibility and/or augmentation response. Left superficial veins: Saphenofemoral junction is patent without thrombus. Soft tissues: Unremarkable. US/[place] [address] IMPRESSION: No evidence of deep vein thrombosis of the common femoral, femoral, profundal femoral, and popliteal veins bilaterally. There is a small vessel in the region of the right gastrocnemius muscle with possible thrombus. This is not optimally visualized.
[2020-01-15] MEDS: dilTIAZem 60 mg Tablet PO ×3 (08:24→22:02)
[2020-01-15] MEDS: tamsulosin 0.4 mg Capsule PO ×2 (08:24→17:45)
[2020-01-15] MEDS: FUROsemide 20 mg Tablet PO (08:24)
[2020-01-15] MEDS: apixaban 5 mg Tablet PO ×2 (08:24→17:45)
[2020-01-15] MEDS: aspirin 81 mg EC Tablet PO (08:24)
[2020-01-15] MEDS: atorvastatin 40 mg Tablet PO (08:24)
[2020-01-15] MEDS: pantoprazole DR 40 mg Tablet PO ×2 (08:24→17:45)
[2020-01-15] MEDS: metoprolol tartrate 50 mg Tablet PO ×2 (08:25→17:44)
[2020-01-15] MEDS: predniSONE 20 mg Tablet 40 MG PO ×2 (08:25→17:45)
--- NOTE | 2020-01-15 09:22 | PM.PN ---
Subjective Subjective: Interval history: No acute events overnight. Patient's heart rate is better controlled. On average patient's heart rate has maintained around 98?110 overnight. Patient is continue to be on Cardizem drip at 10. COVID-19 test is negative. Patient denies of having any nausea, vomiting, headache, dizziness. Vitals/I&O/Wt Last Vital Signs Temp 98.3 F 01/14/20 12:55 Pulse 94 01/15/20 04:30 Resp 21 H 01/15/20 04:30 BP 113/80 01/15/20 04:30 Pulse Ox 93 01/15/20 04:30 01/14/20 01/15/20 01/15/20 22:59 06:59 14:59 Intake Total 1480.800 / 1981.717 183.050 / 2165.767 22.25 / 22.25 Output Total 800 / 800 Balance 1480.800 / 1981.717 -616.950 / 1365.767 22.25 / .25 Weight last 48 hrs Weight 117.934 kg Physical Exam Narrative: EXAM NARRATIVE: General: No acute distress, AO x3, pleasant gentleman HEENT: PERRLA, pupils bilaterally equal and reactive Chest: Normal vesicular breath sounds, bilateral lower zones fine crackles, equal good air entry bilaterally CVS: S1-S2 irregular irregular, tachycardia, JVD mildly elevated. Abdomen: Soft, nontender, no organomegaly, bowel sounds present Neuro: No focal deficits, no facial deformity, AO x3, power 5/5 in all limbs Extremities: Right lower limb mildly more swollen as compared to left. Bilateral lower limb swelling present. 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 Atrial fibrillation: Heart rate better controlled. Start patient on Cardizem 60 3 times daily while trying to de-escalate the Cardizem drip. Continue with metoprolol 50 mg twice daily. Finish the digoxin load with 250 mcg stat. Will check digoxin level tomorrow. If patient heart rate continues to remain stable will discuss with cardiology for possible GREGORY cardioversion because atrial fibrillation new for the patient. Echocardiogram to rule out LA thrombus, for ejection fraction, structural abnormalities. Storm vas score 2, has bled score 1. Discussed with patient for need of him being on anticoagulation given that he has been on atrial fibrillation/flutter for more than 4 days now. Patient is agreeable. We will start patient on Eliquis 5 mg twice daily. Patient already received Lovenox full dose in the ER. Shortness of breath: Most likely because of heart failure from persistent tachycardia. Patient is overall 2000 cc positive since admission. Lasix 20 mg orally. As patient is Lasix na?ve. Monitor input output, daily weights. Patient has elevated d-dimer. Recent hospitalization for more than 11 days advanced which cannot rule out DVT/PE also given the history of active cancer. Patient is allergic to contrast so we will hold off on CTA PE. We will do VQ scan, lower limb Dopplers, ABG. Elevated troponin: Patient does not complain of any chest pain. Patient is already on statin. Troponin elevated most likely because of extreme tachycardia. Baseline troponin was 106 and 6 hourly was 113.2 with a delta of 7.2. We will hold off on any aspirin for now as patient is been started on Eliquis right now. Lipid panel results noted. COVID-19 rule out: Negative. Can remove isolation. Can move patient to CSU. Prostate cancer with metastasis to bone: Patient is on steroid taper as per his oncologist. We will continue the same. We will request documents from [facility] regarding his recent admission. Continue with prophylactic Bactrim dose. Continue with tamsulosin 0.4 mg twice daily. TSH normal, lipid panel under control. HbA1c 7.3. Will discuss with patient regarding new diagnosis of diabetes. Most likely because of chronic steroid use. Patient would most likely need metformin on discharge. Continue patient's chronic medications like hydrocodone, Ativan, pro-chlor perazine. Insulin sliding scale as patient is on high-dose steroids. Full code. Alejandro will also work as DVT prophylaxis Cardiac diet. 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
[2020-01-15 15:01] LABS: Coronavirus Lab Test PTC SEE REPORT
[2020-01-15 17:57] LABS: Glucose Point of Care 223 mg/dL (70-110)
[2020-01-15 21:46] LABS: Glucose Point of Care 166 mg/dL (70-110)
[2020-01-16] VITALS (19 sets, daily range): BP systolic 91–122; BP diastolic 52–79; PULSE 58–186; RESP 11–32; TEMP 36.6–37.1; O2SAT 90–96; BMI 36.2
--- NOTE | 2020-01-16 00:43 | PC.NURSE ---
PT WAS A TRANSFER FROM ICU. PT ARRIVED VIA WHEELCHAIR. PT TOLERATED WELL. PT IS IN A-FIB/FLUTTER. VS BP 117/72, HR - 102, RR - 14, T- 98.4, SPO2 - 94. WILL CONTINUE TO MONITOR.
--- NOTE | 2020-01-16 01:53 | ECG_ITS ---
Measurements Intervals [place] Rate: 124 P: IL: 0 QRS: 19 QRSD: 108 T: 226 QT: 269 QTc: 387 ATRIAL FLUTTER WITH RAPID VENTRICULAR RESPONSE INCOMPLETE RIGHT BUNDLE BRANCH BLOCK ST DEVIATION AND MODERATE T-WAVE ABNORMALITY, CONSIDER LATERAL ISCHEMIA ST DEVIATION AND MODERATE T-WAVE ABNORMALITY, CONSIDER INFERIOR ISCHEMIA Compared to ECG 08/17/2017 22:51:00 Incomplete right bundle-branch block now present T-wave abnormality now present Possible ischemia now present Sinus bradycardia no longer present Electronically Signed On 01-16-2020 19:50:48 CDT by Gabriella Huynh M.D. [id number]
--- NOTE | 2020-01-16 05:55 | PC.NURSE ---
CHARGE NURSE INCREASED RATE OF CARDIZEM TO 10MG. HR IS 120-130'S. WILL CONTINUE TO MONITOR.
--- NOTE | 2020-01-16 06:00 | USCV_ITS ---
Cj Gleason Age: 59 Gender: M : 1960 Exam Date: 01/15/2020 15:58 Ordering Phys: Alfonso Razo MD Technologist: Caitlyn Lui Exam Location: [facility] [place] Indication: AFIB BP: 117 / 74 HR: 125 Rhythm: Sinus Technical Quality: Fair MEASUREMENTS (Male / Female) Normal Values 2D ECHO LV Diastolic Diameter PLAX 3.7 cm 4.2 - 5.9 / 3.9 - 5.3 cm LV Systolic Diameter PLAX 2.2 cm LV Chamber Size 3.4 cm IVS Diastolic Thickness 1.3 cm 0.6 - 1.0 / 0.6 - 0.9 cm IVS Systolic Thickness 1.4 cm LVPW Diastolic Thickness 2.1 cm 0.6 - 1.0 / 0.6 - 0.9 cm LVPW Systolic Thickness 2.3 cm RV Chamber Size 3.0 cm LVOT Diameter 2.0 cm LV Ejection Fraction 2D Teich 72.6 % LV Ejection Fraction MOD 2C 49.2 % LV Ejection Fraction 2C AL 52.2 % LA Diameter 5.0 cm LA Width 2.7 cm LA Height 5.3 cm RA Width 2.0 cm RA Height 3.7 cm M-MODE LV Diastolic Diameter MM 3.7 cm 4.2 - 5.9 / 3.9 - 5.3 cm LV Systolic Diameter MM 1.5 cm LV Ejection Fraction MM Teich 89.0 % IVS Diastolic Thickness MM 1.4 cm 0.6 - 1.0 / 0.6 - 0.9 cm IVS Systolic Thickness MM 1.7 cm LVPW Diastolic Thickness MM 1.8 cm 0.6 - 1.0 / 0.6 - 0.9 cm LVPW Systolic Thickness MM 2.4 cm Aortic Annulus Diameter 3.0 cm LA Ao Ratio MM 1.7 MV E Point Septal Separation 0.6 cm FINDINGS Left Ventricle Normal left ventricular size, systolic function with no regional wall motion abnormalities. Left ventricular ejection fraction is estimated at 65 %. Right Ventricle Normal right ventricular size and systolic function. Right Atrium Normal right atrial size. Right atrial pressure estimated at 3 mmHg. Left Atrium Normal left atrial size. Mitral Valve Structurally normal mitral valve. Aortic Valve Structurally normal trileaflet aortic valve. Tricuspid Valve Structurally normal tricuspid valve. Pulmonic Valve Pulmonic valve not well visualized. Pericardium No pericardial effusion. Aorta Normal size aortic root and proximal ascending aorta. CONCLUSIONS 1. This is a limited 2D study. 2. Normal left ventricular size, systolic function with no regional wall motion abnormalities. Left ventricular ejection fraction is estimated at 65 %. 3. Normal right ventricular size and systolic function. 4. No prior similar studies to compare. Gabriella Huynh MD (Electronically Signed) Final Date: 16 Jan 2020 14:06 S
[2020-01-16 06:02] LABS: Hematocrit 42.8 % (42.0-52.0); Hemoglobin 13.4 g/dL (11.7-16.6); Lymphocytes # 0.4 10^3/uL (0.8-4.8); Lymphocytes % 4.9 %; Mean Corpuscular HGB Conc 31.3 g/dL (30.0-36.0); Mean Corpuscular Hemoglobin 25.8 pg (28.0-34.0); Mean Corpuscular Volume 82.3 fL (80-94); Mean Platelet Volume 9.2 fL (7.4-10.4); Monocytes # 0.5 10^3/uL (0.2-0.9); Neutrophils # 8.1 10^3/uL (1.8-7.7); Neutrophils % 89.3 %; Nucleated Red Blood Cells % 0 %; Platelet Count 116 10^3/cmm (130-400); Red Cell Distribution Width 17.7 % (12.1-15.1); White Blood Count 9.1 10^3/uL (4.0-10.0)
[2020-01-16 06:19] LABS: Alanine Aminotransferase 32 U/L (0-41); Albumin Level 3.2 g/dL (3.5-5.2); Alkaline Phosphatase 64 IU/L (40-130); Anion Gap 18.2 (5-19); Aspartate Amino Transferase 9 U/L (0-40); Blood Urea Nitrogen 19 mg/dL (8-23); Calcium 8.4 mg/dL (8.5-10.5); Carbon Dioxide 24 mmol/L (22-29); Chloride 103 mmol/L (98-107); Globulin 1.8 g/dL (1.3-4.6); Glomerular Filtration Rate 98.6 mL/min (90-130); Glucose 140 mg/dL (65-115); Osmolality Calculated 291 mOsm/kg (285-295); Potassium 4.2 mmol/L (3.5-5.1); Sodium 141 mmol/L (136-145); Total Bilirubin 0.5 mg/dL (0.15-1.2)
[2020-01-16 06:21] LABS: Digoxin 0.8 ng/mL (0.6-1.2)
[2020-01-16 07:12] LABS: Glucose Point of Care 107 mg/dL (70-110)
[2020-01-16] MEDS: FUROsemide 20 mg Tablet PO (07:49)
[2020-01-16] MEDS: dilTIAZem 60 mg Tablet PO ×3 (07:50→22:49)
[2020-01-16] MEDS: pantoprazole DR 40 mg Tablet PO ×2 (08:40→18:04)
[2020-01-16] MEDS: predniSONE 20 mg Tablet PO ×2 (08:40→18:04)
[2020-01-16] MEDS: atorvastatin 40 mg Tablet PO (08:40)
[2020-01-16] MEDS: apixaban 5 mg Tablet PO ×2 (08:40→18:04)
[2020-01-16] MEDS: tamsulosin 0.4 mg Capsule PO ×2 (08:41→18:05)
[2020-01-16] MEDS: metoprolol tartrate 50 mg Tablet PO (09:42)
--- NOTE | 2020-01-16 10:15 | PM.PN ---
Subjective Subjective: Interval history: During the whole day yesterday patient's heart rate was a lot better controlled. Overnight he missed 1 of his Cardizem doses and on exertion his heart rate went back up to 130s and he was started on Cardizem drip. At rest his heart rate is averaging around 100 bpm but while on exertion going as high as 160s. He is complaining of mild shortness of breath. Denies of having any dizziness, headache, abdominal pain. Vitals/I&O/Wt Last Vital Signs Temp 97.8 F 01/16/20 07:26 Pulse 126 H 01/16/20 07:26 Resp 17 01/16/20 07:26 BP 109/65 01/16/20 07:26 Pulse Ox 93 01/16/20 07:26 01/15/20 01/16/20 01/16/20 22:59 06:59 14:59 Intake Total 317.75 / 1420.00 518.75 / 1938.75 360 / 360 Output Total 3550 / 5550 750 / 6300 550 / 550 Balance -3232.25 / -4130.00 -231.25 / -4361.25 -190 / -190 Weight last 48 hrs Weight 117.934 kg Weight 117.934 kg Physical Exam Narrative: EXAM NARRATIVE: General: No acute distress, AO x3, pleasant gentleman HEENT: PERRLA, pupils bilaterally equal and reactive Chest: Normal vesicular breath sounds, bilateral lower zones fine crackles, equal good air entry bilaterally CVS: S1-S2 irregular irregular, tachycardia, JVD mildly elevated. Abdomen: Soft, nontender, no organomegaly, bowel sounds present Neuro: No focal deficits, no facial deformity, AO x3, power 5/5 in all limbs Extremities: Right lower limb mildly more swollen as compared to left. Bilateral lower limb swelling present. 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 Atrial fibrillation: We will make sure patient gets his Cardizem 60 mg dose and continue 3 times daily. We will increase the dose of metoprolol. 50 mg in the morning and 75 mg at night. Digoxin levels appreciated. We will start him on 0. 125 every other day. Echocardiogram awaited. We will consult cardiology for further assistance. Storm vas score 2, has bled score 1. Eliquis 5 mg twice daily. Shortness of breath: Most likely because of heart failure from persistent tachycardia. Had really good urine output after oral Lasix yesterday. Now he is overall 3.5 L negative. Continue Lasix 20 mg daily. Monitor input output, daily weights. Patient has elevated d-dimer. Recent hospitalization for more than 11 days advanced which cannot rule out DVT/PE also given the history of active cancer. Patient is allergic to contrast so we will hold off on CTA PE. We will do VQ scan, lower limb Dopplers, ABG. Elevated troponin: Patient does not complain of any chest pain. Patient is already on statin. Troponin elevated most likely because of extreme tachycardia. Baseline troponin was 106 and 6 hourly was 113.2 with a delta of 7.2. We will hold off on any aspirin for now as patient is been started on Eliquis right now. Lipid panel results noted. COVID-19 rule out: Negative. Can remove isolation. Can move patient to CSU. Prostate cancer with metastasis to bone: Patient is on steroid taper as per his oncologist. We will continue the same. We will request documents from [facility] regarding his recent admission. Continue with prophylactic Bactrim dose. Continue with tamsulosin 0.4 mg twice daily. TSH normal, lipid panel under control. HbA1c 7.3. Will discuss with patient regarding new diagnosis of diabetes. Most likely because of chronic steroid use. Patient would most likely need metformin on discharge. Continue patient's chronic medications like hydrocodone, Ativan, pro-chlor perazine. Insulin sliding scale as patient is on high-dose steroids. Full code. Eliquis will also work as DVT prophylaxis Cardiac diet. 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
[2020-01-16] MEDS: digoxin 125 mcg Tablet PO (10:41)
[2020-01-16] MEDS: sulfamethoxazole-trimeth DS 160-800 mg Tablet 1 TAB PO (10:41)
[2020-01-16 11:42] LABS: Glucose Point of Care 169 mg/dL (70-110)
--- NOTE | 2020-01-16 14:00 | NM_ITS ---
WS: [id number] NUCLEAR MEDICINE LUNG VENTILATION AND PERFUSION CLINICAL INFORMATION: Rule out PE, allergic to contrast TECHNIQUE: Ventilation/perfusion lung scan with 32.6 mCi technetium 99m DTPA. 5.5 mCi technetium 99m MAA COMPARISON: None. FINDINGS: Moderate chronic emphysematous changes. Central bronchial radiotracer deposition on the ventilatory i mages. Several wedge-shaped matched and mismatched perfusion defects peripherally more prominent in t he upper lobes. Findings are intermediate probability for pulmonary embolus. Recommend further evalua tion with CTA chest if renal function permits. NM/NM pul vent and perfus* [id number] IMPRESSION: 1. Intermediate probability for pulmonary embolus. Recommend further evaluation with CTA if renal function permits.
--- NOTE | 2020-01-16 16:21 | PC.NURSE ---
Contacted physician regarding the schedule for cardizem and metoprolol. Reorted 1330 dose of cardizem was not given at patient's HR was 60. HR is now in the 90's. Dr. Razo stated to given cardizem dose now and reschedule next dose for 6h from now. Keep schedule for lopressor at this time. Walked patient in hallway on monitor HR immediately went to 140 s Patient c/o mild dizziness. Returned patient to room. Patient BP was 109/67 .
[2020-01-16 16:54] LABS: Glucose Point of Care 115 mg/dL (70-110)
--- NOTE | 2020-01-16 17:32 | PM.CONSULT ---
Providers/Reason For Consult Consulting Physican/Specialty*: Dr. Huynh, cardiology Reason for Consult*: Atrial fibrillation with rapid response Attending Physician: Alfonso Razo MD Primary Care Provider: Jay Baker DO History of Present Illness History of Present Illness Cj Gleason is a 59 year old male with past medical history of prostate cancer with bone metastasis who is currently enrolled in a clinical trial at [facility], recent chronic edema currently on steroid taper who was admitted with tachycardia noted on blood pressure monitor. Patient denies having any chest pain palpitations or shortness of breath. Seems like for past week he has been in atrial fibrillation. He was admitted after found to be in atrial flutter with rapid response in ER. He received Cardizem gtt and was started on p.o. Cardizem and metoprolol. He also received digoxin. I have been asked to assist in management of this patient given his rates being difficult to control and for possible GREGORY/cardioversion Review of Systems Const: Denies: fever(s), chills, body aches, night sweats, diaphoresis or snoring Eyes: Denies: change in vision or blurry vision ENMT: Denies: throat pain, enlarged tonsils, hoarseness, mouth pain, oral sores, dry mouth or nasal congestion Card: Reports: palpitations, irregular heart rhythm, lightheadedness and orthopnea; Denies: chest pain, edema, swelling of feet/ankles, syncope, pre-syncope, dyspnea on exertion or leg pain with exertion Resp: Reports: dyspnea and non-productive cough; Denies: productive cough, wheezing, stridor, pain on inspiration, change in phlegm color or chest congestion GI: Denies: abdominal pain, nausea, vomiting, hematemesis, heartburn, diarrhea, constipation, bloating, change in bowel habits, pain on defecation or melena : Denies: flank pain or difficulty urinating Musc: Denies: neck pain, back pain or extremity pain Neuro: Denies: headache(s), numbness in extremities, weakness in extremities, lack of coordination, difficulty walking, frequent falls, dizziness, vertigo or confusion Psych: Denies: anxiety, depression, hopelessness or irritability Endo: Denies: polyuria, polydipsia, tired all the time, excessive sweating, flushing or heat intolerance Benjamín/Lymph: Denies: easy bruising or easy bleeding All/Imm: Denies: tongue swelling or facial swelling Meds/Allergies Home Medications and Allergies Home Medications Medication Instructions Recorded Confirmed Last Taken Type Bc Powder 1 packet PO PRN 01/14/20 01/14/20 Unknown History atorvastatin 40 mg PO DAILY 01/14/20 01/14/20 01/14/20 06:00 History cetirizine [Zyrtec] 10 mg PO DAILY PRN 01/14/20 01/14/20 Unknown History hydrocodone-acetaminophen 1 tab PO Q6H PRN 01/14/20 01/14/20 Unknown History loperamide 2 mg PO QID PRN 01/14/20 01/14/20 Unknown History lorazepam 1 mg PO TID PRN 01/14/20 01/14/20 01/14/20 06:00 History multivitamin [Multiple Vitamins] 1 tab PO DAILY 01/14/20 01/14/20 01/14/20 History pantoprazole 40 mg PO BID 01/14/20 01/14/20 01/14/20 History prednisone See Rx Instructions .ROUTE .COMPLEX 01/14/20 01/14/20 01/14/20 History prochlorperazine maleate 10 mg PO Q4H PRN 01/14/20 01/14/20 Unknown History sulfamethoxazole-trimethoprim See Rx Instructions .ROUTE .COMPLEX 01/14/20 01/14/20 01/13/20 History tamsulosin 0.4 mg PO BID 01/14/20 01/14/20 01/14/20 History Allergies Allergy/AdvReac Type Severity Reaction Status Date / Time Iodinated Contrast Media Allergy ALGY-Bliste Verified 01/14/20 13:43 r Current Medications Current Medications Generic Name Dose Route Start Last Admin Trade Name Freq PRN Reason Stop Dose Admin Hydrocodone Bitart/Acetaminophen 1 tab 01/14/20 17:55 01/15/20 01:05 [place] 5-325 Mg PO 1 tab Q6H PRN Administration Pain Apixaban 5 mg 01/14/20 18:00 01/16/20 08:40 Eliquis PO 5 mg BID ANNABELLE Administration Atorvastatin Calcium 40 mg 01/15/20 09:00 01/16/20 08:40 Lipitor PO 40 mg DAILY ANNABELLE Administration Digoxin 125 mcg 01/16/20 09:50 01/16/20 10:41 Lanoxin PO 125 mcg EVERY OTHER DAY ANNABELLE Administration Diltiazem HCl 60 mg 01/16/20 07:30 01/16/20 16:05 Cardizem PO 60 mg Q6H ANNABELLE Administration Furosemide 20 mg 01/15/20 08:00 01/16/20 07:49 Lasix PO 20 mg DAILY@0800 ANNABELLE Administration Diltiazem HCl 125 mg/ Sodium 125 mls @ 0 mls/hr 01/14/20 13:00 01/16/20 05:53 Chloride IV 10 mg/hr .Q0M ANNABELLE 10 mls/hr Titration Protocol Per Protocol Insulin Aspart 0 unit 01/15/20 18:00 01/16/20 17:22 Novolog SUBCUT Not Given WM&BEDTIME ANNABELLE Protocol Metoprolol Tartrate 50 mg 01/16/20 09:37 01/16/20 09:42 Lopressor PO 50 mg QAM ANNABELLE Administration Pantoprazole Sodium 40 mg 01/14/20 18:00 01/16/20 08:40 Protonix PO 40 mg BID ANNABELLE Administration Prednisone 20 mg 01/16/20 09:00 01/16/20 08:40 Prednisone PO 01/19/20 18:01 20 mg BID ANNABELLE Administration Tamsulosin HCl 0.4 mg 01/14/20 18:00 01/16/20 08:41 Flomax PO 0.4 mg BID ANNABELLE Administration Trimethoprim/Sulfamethoxazole 1 tab 01/16/20 10:30 01/16/20 10:41 Bactrim Ds PO 1 tab MoWeFr ANNABELLE Administration Protocol PFSH Acute PFSH: Medical History Chronic steroid use 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 Hyperlipidemia Metastasis Prostate cancer Social History Smoking and tobacco status: never smoked Vitals/I&O/Wt Last Vital Signs Temp 98.7 F 01/16/20 15:10 Pulse 94 01/16/20 15:10 Resp 18 01/16/20 15:10 BP 118/79 01/16/20 15:10 Pulse Ox 94 01/16/20 15:10 01/16/20 01/16/20 01/16/20 06:59 14:59 22:59 Intake Total 518.75 / 1938.75 600 / 600 Output Total 750 / 6300 1400 / 1400 600 / 2000 Balance -231.25 / -4361.25 -800 / -800 -600 / -1400 Weight last 48 hrs Weight 260 lb Physical Exam Const: COMMON NORMALS: no acute distress, patient oriented x3 and alert GENERAL APPEARANCE: cooperative, comfortable, well kempt and well hydrated HENMT: COMMON NORMALS: hearing grossly normal bilaterally, external ears normal and moist oral mucous membranes FACE & SINUS: normal facial exam NOSE: no Epistaxis present EXTERNAL EAR: Yes external ears normal MOUTH: lip normal Eye: COMMON NORMALS: EOMs intact bilaterally and no scleral icterus GENERAL EYE: appearance normal, both eyes and all related structures ALIGNMENT: Yes alignment normal Neck/C-Spine: COMMON NORMALS: no lymphadenopathy, supple and no JVD GENERAL: Yes normal visual inspection and Yes trachea midline CAROTIDS: Yes normal carotid upstroke Lymph: LYMPHATIC: no lymphadenopathy noted Chest: COMMONS NORMALS: normal inspection of the chest and normal palpation of entire chest wall CHEST: Yes Symmetrical chest wall rise and No tenderness Resp: COMMON NORMALS: clear to auscultation bilaterally EFFORT & INSPECTION: Yes able to speak in complete sentences, No tachypneic, No respiratory distress, No pursed lip breathing, No labored and No Actively coughing AUSCULTATION: clear to auscultation bilaterally, no crackles, no rales, no rhonchi and no wheezes Cardio: COMMON NORMALS: no JVD, regular rate, regular rhythm, S1 normal heart sound present, S2 normal heart sound present and Peripheral pulses 2+ throughout PALPATION: normal PMI RATE: regular rate RHYTHM: regular rhythm HEART SOUNDS: S1 normal heart sound present, S2 normal heart sound present, no click, no gallops and no murmurs BRUITS: no carotid bruits PERIPHERAL PULSES: Peripheral pulses 2+ throughout, radial pulses present, posterior tibial pulses present and dorsalis pedis present Extremity: GENERAL: No clubbing, No cyanosis, Yes edema and No pallor Neuro: COMMON NORMALS: patient oriented x3, CN's II-XII intact bilaterally and no focal motor deficits SENSORIUM/ORIENTATION: Yes alert Psych: COMMON NORMALS: Normal thought process present and speech normal APPEARANCE: Yes well kempt SPEECH: Yes normal speech MOOD & AFFECT: Yes euthymic mood THOUGHT PROCESS: Normal thought process present THOUGHT CONTENT: Yes Normal thought content present Data Imaging^: Other Imaging: I personally reviewed and interpreted this imaging study as follows: My impression: TTE (01/16/20) CONCLUSIONS 1. This is a limited 2D study. 2. Normal left ventricular size, systolic function with no regional wall motion abnormalities. Left ventricular ejection fraction is estimated at 65 %. 3. Normal right ventricular size and systolic function. 4. No prior similar studies to compare. EKG showed atrial flutter with rapid regular response with variable conduction. Incomplete right bundle branch block. Nonspecific ST-T wave changes. A&P Assessment and plan (1) Atrial flutter: -Patient's heart rate has been difficult to control in spite of multiple medications. With Ambulation patient heart rate jumped to 150s. He did not have any chest pain or shortness of breath but did complained of dizziness. -Change to long-acting Cardizem 180/240 mg daily starting tomorrow morning. Continue metoprolol tartrate at present dose and digoxin. -Continue to closely monitor on telemetry. -I will keep him n.p.o. after midnight for possible GREGORY cardioversion tomorrow. Status: Acute Qualifiers: Atrial flutter type: unspecified Qualified Code(s): I48.92 - Unspecified atrial flutter (2) Hyperlipidemia: Status: Acute (3) Prostate cancer: Status: Acute Additional A&P Information Thrombocytopenia Elevated hemoglobin A1c Chronic steroid use Thank you for allowing me to participate in patient's care. Please feel free to call with questions or concerns. Consult Attestations Medical Necessity Statement: Needs hospital stay for management of atrial fibrillation with rapid response Coding Level of Care Code Acute Sales And Service Specialist for [facility] Fwd Diagnoses Atrial flutter I48.92 Atrial flutter type: unspecified Hyperlipidemia E78.5 Prostate cancer C61
[2020-01-16] MEDS: metoprolol tartrate 50 mg Tablet 75 MG PO (18:03)
[2020-01-16 20:26] LABS: Glucose Point of Care 120 mg/dL (70-110)
--- NOTE | 2020-01-16 23:17 | PC.NURSE ---
Patients hr went up to 140 when he was sitting on side of bed uirinating then back down to 110-120 until next cardizem dose given, hr is now bouncing in 90s.
[2020-01-17] VITALS (23 sets, daily range): BP systolic 86–140; BP diastolic 51–92; PULSE 62–134; RESP 14–29; TEMP 36.4–36.9; O2SAT 89–97; BMI 36.2
[2020-01-17] MEDS: dilTIAZem 60 mg Tablet PO (03:59)
[2020-01-17 07:14] LABS: Glucose Point of Care 116 mg/dL (70-110)
[2020-01-17] MEDS: amiodarone 200 mg Tablet 400 MG PO ×2 (08:11→17:37)
[2020-01-17] MEDS: tamsulosin 0.4 mg Capsule PO ×2 (08:13→17:37)
[2020-01-17] MEDS: apixaban 5 mg Tablet PO ×2 (08:13→17:37)
[2020-01-17] MEDS: FUROsemide 20 mg Tablet PO (08:13)
[2020-01-17] MEDS: pantoprazole DR 40 mg Tablet PO ×2 (08:15→17:37)
[2020-01-17] MEDS: atorvastatin 40 mg Tablet PO (08:15)
[2020-01-17] MEDS: predniSONE 20 mg Tablet PO ×2 (08:15→17:37)
--- NOTE | 2020-01-17 09:07 | P.ANESASSM_ITS ---
Pre-Anesthetic Assessment Pre-Anesthetic Assessment: Height/Weight: Height 1.8 m Weight 117.934 kg Temp Pulse Resp BP Pulse Ox 98.4 F 103 H 21 H 111/81 90 01/17/20 07:33 01/17/20 07:33 01/17/20 07:33 01/17/20 07:33 01/17/20 07:33 Preop Diagnosis: A flutter Proposed Procedure: Operation Date: 01/17/20 10:00 Proposed Procedures p GREGORY (Transesophageal Echocardiogram)(Not Applicable) - Gabriella Huynh MD s Cardioversion(Not Applicable) - Gabriella Huynh MD Pulmonary: Pulmonary: JUAREZ Comments: covid negative TTE --> echo 65% CV/HEM: CV/HEM: Afib (treated w/ cardizem) Metabolic: Metabolic: DM (d/t steroids ( on steroid taper)) and Hyperlipidemia Musc/skel: Comments: bone mets from prostate cancer Meds/Allergies Current Medications: Current Medications Generic Name Dose Route Start Last Admin Trade Name Freq PRN Reason Stop Dose Admin Hydrocodone Bitart /Acetaminophen 1 tab 01/14/20 17:55 01/15/20 01:05 [place] 5-325 Mg PO 1 tab Q6H PRN Administration Pain Amiodarone HCl 400 mg 01/17/20 07:30 01/17/20 08:11 Cordarone PO 400 mg BID ANNABELLE Administration Apixaban 5 mg 01/14/20 18:00 01/17/20 08:13 Eliquis PO 5 mg BID ANNABELLE Administration Atorvastatin Calci um 40 mg 01/15/20 09:00 01/17/20 08:15 Lipitor PO 40 mg DAILY ANNABELLE Administration Digoxin 125 mcg 01/16/20 09:50 01/16/20 10:41 Lanoxin PO 125 mcg EVERY OTHER DAY S [facility] Administration Diltiazem HCl 60 mg 01/16/20 07:30 01/17/20 03:59 Cardizem PO 60 mg Q6H ANNABELLE Administration Furosemide 20 mg 01/15/20 08:00 01/17/20 08:13 Lasix PO 20 mg DAILY@0800 ANNABELLE Administration Diltiazem HCl 125 mg/ Sodium 125 mls @ 0 mls/h r 01/14/20 13:00 01/16/20 05:53 Chloride IV 10 mg/hr .Q0M ANNABELLE 10 mls/hr Titration Protocol Per Protocol Insulin Aspart 0 unit 01/15/20 18:00 01/17/20 07:41 Novolog SUBCUT Not Given WM&BEDTIME ANNABELLE Protocol Metoprolol Tartrat e 75 mg 01/16/20 18:00 01/16/20 18:03 Lopressor PO 75 mg QPM ANNABELLE Administration Metoprolol Tartrat e 50 mg 01/16/20 09:37 01/16/20 09:42 Lopressor PO 50 mg QAM ANNABELLE Administration Pantoprazole Sodiu m 40 mg 01/14/20 18:00 01/17/20 08:15 Protonix PO 40 mg BID ANNABELLE Administration Prednisone 20 mg 01/16/20 09:00 01/17/20 08:15 Prednisone PO 01/19/20 18:01 20 mg BID ANNABELLE Administration Tamsulosin HCl 0.4 mg 01/14/20 18:00 01/17/20 08:13 Flomax PO 0.4 mg BID ANNABELLE Administration Trimethoprim/Sulfa methoxazole 1 tab 01/16/20 10:30 01/16/20 10:41 Bactrim Ds PO 1 tab MoWeFr ANNABELLE Administration Protocol PFSH Anesthesia PFSH: Medical History Chronic steroid use 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 Hyperlipidemia Metastasis Prostate cancer Social History Smoking and tobacco status: never smoked Data Anesthesia CBC & Chem 7: 01/16/20 04:51 01/16/20 04:51 Other Labs: Laboratory Results - last 48 hr 01/14/20 01/15/20 01/15/20 15:00 17:43 21:43 WBC RBC Hgb Hct MCV MCH MCHC RDW Plt Count MPV Neut % (Auto) Lymph % (Auto) [place] % (Auto) Eos % (Auto) Baso % (Auto) Neut # (Auto) Lymph # (Auto) [place] # (Auto) Eos # (Auto) Baso # (Auto) Nucleated RBC % (auto) Nucleated RBCs # Sodium Potassium Chloride Carbon Dioxide Anion Gap BUN Creatinine GFR Calculation Glucose POC Glucose 223 166 Calculated Osmolality Calcium Total Bilirubin AST ALT Alkaline Phosphatase Total Protein Albumin Globulin Digoxin Nasal/Oral COVID-19 PCR See report 01/16/20 01/16/20 01/16/20 04:51 04:51 04:51 WBC 9.1 RBC 5.20 Hgb 13.4 Hct 42.8 MCV 82.3 MCH 25.8 L MCHC 31.3 RDW 17.7 H Plt Count 116 L MPV 9.2 Neut % (Auto) 89.3 Lymph % (Auto) 4.9 [place] % (Auto) 5.0 Eos % (Auto) 0.0 Baso % (Auto) 0.0 Neut # (Auto) 8.1 H Lymph # (Auto) 0.4 L [place] # (Auto) 0.5 Eos # (Auto) 0.0 Baso # (Auto) 0.0 Nucleated RBC % (auto) 0 Nucleated RBCs # 0.0 Sodium 141 Potassium 4.2 Chloride 103 Carbon Dioxide 24 Anion Gap 18.2 BUN 19 Creatinine 0.8 GFR Calculation 98.6 Glucose 140 H POC Glucose Calculated Osmolality 291 Calcium 8.4 L Total Bilirubin 0.5 AST 9 ALT 32 Alkaline Phosphatase 64 Total Protein 5.0 L Albumin 3.2 L Globulin 1.8 Digoxin 0.8 Nasal/Oral COVID-19 PCR 01/16/20 01/16/20 01/16/20 06:58 11:17 16:44 WBC RBC Hgb Hct MCV MCH MCHC RDW Plt Count MPV Neut % (Auto) Lymph % (Auto) [place] % (Auto) Eos % (Auto) Baso % (Auto) Neut # (Auto) Lymph # (Auto) [place] # (Auto) Eos # (Auto) Baso # (Auto) Nucleated RBC % (auto) Nucleated RBCs # Sodium Potassium Chloride Carbon Dioxide Anion Gap BUN Creatinine GFR Calculation Glucose POC Glucose 107 169 115 Calculated Osmolality Calcium Total Bilirubin AST ALT Alkaline Phosphatase Total Protein Albumin Globulin Digoxin Nasal/Oral COVID-19 PCR 01/16/20 01/17/20 20:15 06:22 WBC RBC Hgb Hct MCV MCH MCHC RDW Plt Count MPV Neut % (Auto) Lymph % (Auto) [place] % (Auto) Eos % (Auto) Baso % (Auto) Neut # (Auto) Lymph # (Auto) [place] # (Auto) Eos # (Auto) Baso # (Auto) Nucleated RBC % (auto) Nucleated RBCs # Sodium Potassium Chloride Carbon Dioxide Anion Gap BUN Creatinine GFR Calculation Glucose POC Glucose 120 116 Calculated Osmolality Calcium Total Bilirubin AST ALT Alkaline Phosphatase Total Protein Albumin Globulin Digoxin Nasal/Oral COVID-19 PCR Cardiac Studies: No Data to Display
[2020-01-17] MEDS: sodium chloride 0.9% 1,000 ML 30 ML IV (09:53)
--- NOTE | 2020-01-17 11:00 | USCV_ITS ---
Cj Gleason Age: 59 Gender: M : 1960 Exam Date: 01/17/2020 10:30 Ordering Phys: Gabriella Huynh MD ([email or web address]) Technologist: Ricardo Harmon Exam Location: [facility] [place] Indication: CARDIOVERSION BP: / HR: Rhythm: Sinus Technical Quality: MEASUREMENTS (Male / Female) Normal Values Medications Patient given IV sedation by anesthesia service, for details please refer to the anesthesia report. Complications None. Proc. Components GREGORY was performed at multiple levels. FINDINGS Left Ventricle Normal left ventricular size, systolic function and wall thickness, with no regional wall motion abnormalities. Left ventricular ejection fraction is estimated at 70 %. Right Ventricle Normal right ventricular size and systolic function. Right Atrium Normal right atrial size. Left Atrium Normal left atrial size. No thrombus present in the left atrium. LA Appendage Normal left atrial appendage. No thrombus visualized in the left atrial appendage. IA Septum Normal interatrial septum. No atrial septal defect or patent foramen ovale by color Doppler or agitated saline study Mitral Valve Structurally normal mitral valve. No mitral valve stenosis. Mild mitral valve regurgitation. Aortic Valve Structurally normal trileaflet aortic valve. No aortic valve stenosis. No aortic valve regurgitation. Tricuspid Valve Structurally normal tricuspid valve. Trace tricuspid valve regurgitation. Pulmonic Valve Structurally normal pulmonic valve. Trace pulmonary valve regurgitation. Pericardium No pericardial effusion. Aorta Normal size aortic root and proximal ascending aorta. No aortic dilation aneurysm or dissection. CONCLUSIONS 1. Normal left ventricular size, systolic function and wall thickness, with no regional wall motion abnormalities. Left ventricular ejection fraction is estimated at 70 %. 2. Normal right ventricular size and systolic function. 3. No thrombus visualized in left atrium or left atrial appendage. 4. Mild mitral valve regurgitation. Gabriella Huynh MD (Electronically Signed) Final Date: 17 Jan 2020 17:16 S
--- NOTE | 2020-01-17 11:00 | PC.NURSE ---
Present at bedside: Sincere Mancera CRNAand Matt from Ultrasound dept to complete a bedside GREGORY and planned cardioversion. Time out completed, patient positioned on his left side. Airway and oxygen managed by the OIL EXPELLER. At 1045 the GREGORY was completed and we proceeded to cardiovert the patient using 120 J x1. Patient's rhythmn converted to SB-SR with PAC's. Recovery period continued with RN & OIL EXPELLER at bedside until patient awake and follwing commands.
--- NOTE | 2020-01-17 11:02 | PM.PN ---
Subjective Subjective: Interval history: No acute events overnight. Patient's heart rate has been difficult to control. At rest would be in the 90s but on my minimal ambulation goes up to 150-180 bpm. Today seen post GREGORY cardioversion. Patient was successfully cardioverted into normal sinus rhythm. Patient tolerated the procedure well. Does not complain of any nausea, vomiting, headache, dizziness. Shortness of breath is been getting better as per the patient. Vitals/I&O/Wt Last Vital Signs Temp 98.4 F 01/17/20 07:33 Pulse 62 01/17/20 10:57 Resp 14 01/17/20 10:57 BP 111/81 01/17/20 07:33 Pulse Ox 97 01/17/20 10:57 01/16/20 01/17/20 01/17/20 22:59 06:59 14:59 Intake Total 360 / 960 Output Total 1600 / 3000 375 / 3375 550 / 550 Balance -1240 / -2040 -375 / -2415 -550 / -550 Weight last 48 hrs Weight 117.934 kg Weight 117.934 kg Physical Exam Narrative: EXAM NARRATIVE: General: No acute distress, AO x3, pleasant gentleman HEENT: PERRLA, pupils bilaterally equal and reactive Chest: Normal vesicular breath sounds, bilateral lower zones fine crackles, equal good air entry bilaterally CVS: S1-S2 regular, no tachycardia Abdomen: Soft, nontender, no organomegaly, bowel sounds present Neuro: No focal deficits, no facial deformity, AO x3, power 5/5 in all limbs Extremities: Right lower limb mildly more swollen as compared to left. Bilateral lower limb swelling present. Data : 01/16/20 04:51 01/16/20 04:51 A&P Assessment and plan (1) Atrial fibrillation: Status: Acute (2) Prostate cancer: Status: Acute (3) Metastasis: Status: Acute (4) Chronic steroid use: Status: Acute (5) COVID-19 ruled out: Status: Acute (6) Hyperlipidemia: Status: Acute (7) D-dimer, elevated: CTA could not be done because of contrast allergy. VQ scan intermediate probability, low Dopplers negative. Patient already on Eliquis for atrial fibrillation. No hypoxia on room air. 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 59-year-old man with past medical history of prostate cancer on clinical trial with recent discharge from [facility] on steroid taper comes in with palpitations and tachycardia going on for last 6 days found to be in atrial fibrillation. Atrial fibrillation: Post cardioversion. Appreciate cardiology recommendations. Continue amiodarone 400 mg twice daily, metoprolol 25 mg twice daily. Stop Cardizem and digoxin. Storm vas score 2. Eliquis 5 mg twice daily. Shortness of breath: Most likely because of heart failure from persistent tachycardia. Had really good urine output after oral Lasix yesterday. Now he is overall 3.5 L negative. Continue Lasix 20 mg daily. Monitor input output, daily weights. COVID-19 rule out: Negative. Can remove isolation. Can move patient to CSU. Prostate cancer with metastasis to bone: Patient is on steroid taper as per his oncologist. We will continue the same. We will request documents from [facility] regarding his recent admission. Continue with prophylactic Bactrim dose. Continue with tamsulosin 0.4 mg twice daily. TSH normal, lipid panel under control. HbA1c 7.3. Will discuss with patient regarding new diagnosis of diabetes. Most likely because of chronic steroid use. Patient would most likely need metformin on discharge. Continue patient's chronic medications like hydrocodone, Ativan, pro-chlor perazine. Insulin sliding scale as patient is on high-dose steroids. Full code. Eliquis will also work as DVT prophylaxis Cardiac diet. 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
[2020-01-17 11:09] LABS: Glucose Point of Care 115 mg/dL (70-110)
--- NOTE | 2020-01-17 11:29 | ECG_ITS ---
Measurements Intervals [place] Rate: 70 P: 21 PA: 167 QRS: 13 QRSD: 78 T: 169 QT: 373 QTc: 405 Multifocal atrial rhythm POSSIBLE RIGHT VENTRICULAR CONDUCTION DELAY [RSR (QR) IN V1/V2] ST DEVIATION AND MODERATE T-WAVE ABNORMALITY, CONSIDER ANTEROLATERAL ISCHEMIA [-0.1+ mV T WAVE IN V3-V6] ST DEVIATION AND MODERATE T-WAVE ABNORMALITY, CONSIDER INFERIOR ISCHEMIA [-0.1+ mV T WAVE IN II/aVF] Compared to ECG 01/16/2020 02:06:08 Atrial flutter no longer present Incomplete right bundle-branch block no longer present T-wave abnormality still present Possible ischemia still present Electronically Signed On 01-17-2020 20:50:53 CDT by Eri Charles M.D. [email or web address]
--- NOTE | 2020-01-17 12:28 | PM.PN ---
Subjective Subjective: Interval history: Patient continued to be tachycardic overnight and this morning. Medications: Reviewed: Yes Medication Review Details: Current Medications Hydrocodone Bitart/Acetaminophen ([place] 5-325 Mg) 1 tab PO Q6H PRN PRN Reason: Pain Last Admin: 01/15/20 01:05 Dose: 1 tab Documented by: Amiodarone HCl (Cordarone) 400 mg PO BID COUNTS INCLUDE 234 BEDS AT THE [facility] Last Admin: 01/17/20 08:11 Dose: 400 mg Documented by: Apixaban (Eliquis) 5 mg PO BID COUNTS INCLUDE 234 BEDS AT THE [facility] Last Admin: 01/17/20 08:13 Dose: 5 mg Documented by: Atorvastatin Calcium (Lipitor) 40 mg PO DAILY COUNTS INCLUDE 234 BEDS AT THE [facility] Last Admin: 01/17/20 08:15 Dose: 40 mg Documented by: Dextrose (D50w) 25 ml IVP ONCE PRN; Protocol PRN Reason: hypoglycemia protocol Dextrose (D50w) 50 ml IVP PRN PRN; Protocol PRN Reason: hypoglycemia protocol Digoxin (Lanoxin) 125 mcg PO EVERY OTHER DAY COUNTS INCLUDE 234 BEDS AT THE [facility] Last Admin: 01/16/20 10:41 Dose: 125 mcg Documented by: Diltiazem HCl (Cardizem Cd (24hr)) 180 mg PO DAILY COUNTS INCLUDE 234 BEDS AT THE [facility] Furosemide (Lasix) 20 mg PO DAILY@0800 COUNTS INCLUDE 234 BEDS AT THE [facility] Last Admin: 01/17/20 08:13 Dose: 20 mg Documented by: Glucagon (Glucagen) 1 mg IM ONCE PRN; Protocol PRN Reason: Adult Acute Hypoglycemia Prot. Diltiazem HCl 125 mg/ Sodium (Chloride) 125 mls @ 0 mls/hr IV .Q0M ANNABELLE; Protocol Last Titration: 01/16/20 05:53 Dose: 10 mg/hr, 10 mls/hr Documented by: Dextrose (D5w) 500 mls @ 100 mls/hr IV ONCE PRN; Protocol PRN Reason: Adult Acute Hypoglycemia Prot Sodium Chloride (Sodium Chloride 0.9%) 1,000 mls @ 30 mls/hr IV .Q24H COUNTS INCLUDE 234 BEDS AT THE [facility] Last Admin: 01/17/20 09:53 Dose: 30 mls/hr Documented by: Insulin Aspart (Novolog) 0 unit SUBCUT WM&BEDTIME COUNTS INCLUDE 234 BEDS AT THE [facility]; Protocol Last Admin: 01/17/20 11:25 Dose: Not Given Documented by: Lorazepam (Ativan) 1 mg PO TID PRN PRN Reason: unknown Metoprolol Tartrate (Lopressor) 75 mg PO QPM COUNTS INCLUDE 234 BEDS AT THE [facility] Last Admin: 01/16/20 18:03 Dose: 75 mg Documented by: Metoprolol Tartrate (Lopressor) 50 mg PO QAM COUNTS INCLUDE 234 BEDS AT THE [facility] Last Admin: 01/16/20 09:42 Dose: 50 mg Documented by: Ondansetron HCl (Zofran) 4 mg IVP Q8H PRN PRN Reason: vomiting, or N/V if npo Pantoprazole Sodium (Protonix) 40 mg PO BID COUNTS INCLUDE 234 BEDS AT THE [facility] Last Admin: 01/17/20 08:15 Dose: 40 mg Documented by: Prednisone (Prednisone) 20 mg PO BID COUNTS INCLUDE 234 BEDS AT THE [facility] Stop: 01/19/20 18:01 Last Admin: 01/17/20 08:15 Dose: 20 mg Documented by: Prochlorperazine (Compazine) 10 mg PO Q4H PRN PRN Reason: Nausea Tamsulosin HCl (Flomax) 0.4 mg PO BID COUNTS INCLUDE 234 BEDS AT THE [facility] Last Admin: 01/17/20 08:13 Dose: 0.4 mg Documented by: Trimethoprim/Sulfamethoxazole (Bactrim Ds) 1 tab [facility]; Protocol Last Admin: 01/16/20 10:41 Dose: 1 tab Documented by: Vitals/I&O/Wt Last Vital Signs Temp 98.4 F 01/17/20 07:33 Pulse 62 01/17/20 10:57 Resp 14 01/17/20 10:57 BP 111/81 01/17/20 07:33 Pulse Ox 97 01/17/20 10:57 01/16/20 01/17/20 01/17/20 22:59 06:59 14:59 Intake Total 360 / 960 Output Total 1600 / 3000 375 / 3375 550 / 550 Balance -1240 / -2040 -375 / -2415 -550 / -550 Weight last 48 hrs Weight 260 lb Weight 260 lb Physical Exam Const: COMMON NORMALS: no acute distress, patient oriented x3 and alert GENERAL APPEARANCE: cooperative, comfortable, well kempt and well hydrated HENMT: COMMON NORMALS: hearing grossly normal bilaterally and moist oral mucous membranes Eye: COMMON NORMALS: EOMs intact bilaterally and no scleral icterus GENERAL EYE: appearance normal, both eyes and all related structures Neck/C-Spine: COMMON NORMALS: supple and no JVD CAROTIDS: Yes normal carotid upstroke Chest: COMMONS NORMALS: normal inspection of the chest and normal palpation of entire chest wall Resp: COMMON NORMALS: clear to auscultation bilaterally AUSCULTATION: clear to auscultation bilaterally, no crackles, no rales, no rhonchi and no wheezes Cardio: COMMON NORMALS: no JVD and Peripheral pulses 2+ throughout PALPATION: normal PMI RATE: Other RHYTHM: abnormal rhythm irregularly irregular HEART SOUNDS: no click, no gallops and no murmurs BRUITS: no carotid bruits PERIPHERAL PULSES: Peripheral pulses 2+ throughout, radial pulses present, posterior tibial pulses present and dorsalis pedis present Extremity: GENERAL: No clubbing, No cyanosis, Yes edema (trace) and No pallor Neuro: COMMON NORMALS: patient oriented x3, CN's II-XII intact bilaterally and no focal motor deficits SENSORIUM/ORIENTATION: Yes alert Psych: COMMON NORMALS: Normal thought process present and speech normal APPEARANCE: Yes well kempt SPEECH: Yes normal speech MOOD & AFFECT: Yes euthymic mood THOUGHT PROCESS: Normal thought process present THOUGHT CONTENT: Yes Normal thought content present Data : 01/16/20 04:51 01/16/20 04:51 A&P Assessment and plan (1) Atrial flutter: [id number]= 2/9 , 1 for hypertension and one for CHF -Patient's heart rate has been difficult to control in spite of multiple medications. With Ambulation patient heart rate jumped to 150s. He did not have any chest pain or shortness of breath but did complained of dizziness. -Patient continued to be tachycardic overnight and hence decision was made to proceed with GREGORY and cardioversion. -Patient successfully underwent cardioversion with taoist of normal sinus rhythm with PACs. -Continue amiodarone 400 mg twice daily and metoprolol tartrate. May have to decrease dose to 25 mg twice a day. -Discontinue digoxin and Cardizem. Continue to monitor closely on telemetry. Status: Acute Qualifiers: Atrial flutter type: unspecified Qualified Code(s): I48.92 - Unspecified atrial flutter (2) Hyperlipidemia: Status: Acute (3) Prostate cancer: Status: Acute Additional A&P Information CHF: Mildly decompensated in setting of atrial flutter and rapid response; continue Lasix 20 mg daily. Thrombocytopenia Hyperglycemia with steroid use Chronic steroid use Thank you for allowing me to participate in patient's care. Please feel free to call with questions or concerns. Attestations Medical Necessity Statement*: Needs hospital stay for management of atrial flutter with rapid ventricle response. Procedures Time out/Consent Time Out Performed: Yes Consent for Procedure: Consent obtained from patient, Risks & Benefits reviewed and Agrees to proceed with procedure Procedure Narrative GREGORY Procedure note Indication: Symptomatic atrial flutter Sedation: Propofol by anesthesia Procedure was explained to the patient in detail and informed consent was obtained. Timeout was called. After achieving adequate sedation, the probe was inserted on first attempt. No blood on the probe post procedure. Prelim report: Normal left ventricle size and systolic function. No left atrial or left atrial appendage mass or thrombus visualized. No ASD or PFO identified. Full report to follow. Cardioversion procedure note. Indication: Symptomatic atrial flutter Anticoagulation: Eliquis Sedation: Propofol by anesthesia After after ruling out left atrial/left atrial appendage thrombus decision was more made to proceed with cardioversion. Pads were placed anteroposteriorly. He received 120 J of synchronized biphasic shock ?1 with taoist of normal sinus rhythm. Patient tolerated the procedure well. 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
[2020-01-17 16:09] LABS: Glucose Point of Care 129 mg/dL (70-110)
[2020-01-17 20:23] LABS: Glucose Point of Care 133 mg/dL (70-110)
[2020-01-17] MEDS: metoprolol tartrate 25 mg Tablet PO (20:33)
--- NOTE | 2020-01-17 21:09 | PC.NURSE ---
patient had two ivs in the same hand next to each other, the lateral one caused him pain just as we tried to flush it. removed that daryl and redressed the one next to it which feels fine and is patent.
[2020-01-18 03:39] VITALS: BP 136/74; PULSE 62; RESP 18; TEMP 36.5; O2SAT 95
--- NOTE | 2020-01-18 04:07 | PC.NURSE ---
Patient had a few episodes of 6 t 7 second afib runs early eveing but has mostly stayed in NS. heart rate has remained 60s to 80s most of the evening. patient experiencing no major surges when sitting on side of bed or walking jsut in room. says manuel moore felt lightheaded the couple times hes gotten up.
[2020-01-18 05:05] LABS: Eosinophils % 0.1 %; Hematocrit 42.8 % (42.0-52.0); Hemoglobin 13.3 g/dL (11.7-16.6); Lymphocytes # 0.4 10^3/uL (0.8-4.8); Lymphocytes % 5.3 %; Mean Corpuscular HGB Conc 31.1 g/dL (30.0-36.0); Mean Corpuscular Hemoglobin 26.1 pg (28.0-34.0); Mean Corpuscular Volume 84.1 fL (80-94); Mean Platelet Volume 9.6 fL (7.4-10.4); Monocytes # 0.5 10^3/uL (0.2-0.9); Monocytes % 6.9 %; Neutrophils # 6.1 10^3/uL (1.8-7.7); Nucleated Red Blood Cells % 0 %; Platelet Count 110 10^3/cmm (130-400); Red Blood Count 5.09 10^6/uL (4.1-5.3); Red Cell Distribution Width 17.3 % (12.1-15.1)
[2020-01-18 05:34] LABS: Alanine Aminotransferase 28 U/L (0-41); Alkaline Phosphatase 68 IU/L (40-130); Anion Gap 15.7 (5-19); Aspartate Amino Transferase 9 U/L (0-40); Blood Urea Nitrogen 34 mg/dL (8-23); Calcium 8.8 mg/dL (8.5-10.5); Carbon Dioxide 22 mmol/L (22-29); Chloride 102 mmol/L (98-107); Creatinine Clr Calc Pharmacy 102.6151; Globulin 1.9 g/dL (1.3-4.6); Glomerular Filtration Rate 76.2 mL/min (90-130); Glucose 131 mg/dL (65-115); Osmolality Calculated 279 mOsm/kg (285-295); Potassium 4.7 mmol/L (3.5-5.1); Sodium 135 mmol/L (136-145); Total Bilirubin 0.8 mg/dL (0.15-1.2); Total Protein 4.9 g/dL (6.6-8.7)
[2020-01-18 05:54] VITALS: BMI 36.2
[2020-01-18 06:15] LABS: Glucose Point of Care 107 mg/dL (70-110)
[2020-01-18 07:05] VITALS: BP 108/76; PULSE 71; RESP 18; TEMP 36.6; O2SAT 95
[2020-01-18] MEDS: FUROsemide 20 mg Tablet PO (07:31)
[2020-01-18] MEDS: metoprolol tartrate 25 mg Tablet PO (08:49)
[2020-01-18] MEDS: atorvastatin 40 mg Tablet PO (08:49)
[2020-01-18] MEDS: tamsulosin 0.4 mg Capsule PO (08:49)
[2020-01-18] MEDS: amiodarone 200 mg Tablet 400 MG PO (08:50)
[2020-01-18] MEDS: pantoprazole DR 40 mg Tablet PO (08:50)
[2020-01-18] MEDS: apixaban 5 mg Tablet PO (08:51)
[2020-01-18] MEDS: predniSONE 20 mg Tablet PO (08:51)
--- NOTE | 2020-01-18 09:08 | P.DS_ITS ---
Discharge Providers Date of Admission: 01/14/20 16:45 Date of Discharge: January 18, 2020 Attending Provider at Admission: Alfonso Razo MD Attending Provider at Discharge: Alfonso Razo MD Consults: Cardiology: Dr. 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 Patient states since Thursday, today is Thursday patient has been having palpitations with his heart rate going up to 130s on his blood pressure monitor which he attributed to steroid taper. For last 2 days his heart rate is going up to 180 so he presented to the ER. His palpitations are all associated with shortness of breath which gets aggravated on mild exertion for last 3 days and on lying down flat. He does not have any chest pain, nausea, vomiting, dizziness, falls, headache, weakness in any of his arms, bleeding from anywhere, any diarrhea. In the ER patient was found to have be in atrial fibrillation/flutter with heart rate going up to 180s. Patient was admitted to the cardiac stepdown unit with telemetry. Patient had a history of being admitted at [facility] [place] for more than 11 days a week ago so COVID-19 testing was done which came back negative after which isolations were removed. For atrial fibrillation flutter patient was tried on multiple medications while being hospitalized which did control his heart rate at rest but on mild ambulation would go up to 150s again. For this reason cardiology was consulted and patient underwent GREGORY cardioversion on January 16 which he tolerated well. Postprocedure patient was in sinus rhythm. He was maintained on amiodarone 400 mg twice daily and metoprolol 25 mg twice daily. Patient is advised to take amiodarone 4 mg twice daily for 7 days followed by 200 mg daily. Patient has also been initiated on Eliquis. He is advised to follow-up with cardiology within next 2 weeks for further adjustment of medications. Echocardiogram done during the hospitalization showed normal EF without any structural abnormalities. Physical Exam Narrative: EXAM NARRATIVE: General: No acute distress, AO x3, pleasant gentleman HEENT: PERRLA, pupils bilaterally equal and reactive Chest: Normal vesicular breath sounds, bilateral lower zones fine crackles, equal good air entry bilaterally CVS: S1-S2 regular, no tachycardia Abdomen: Soft, nontender, no organomegaly, bowel sounds present Neuro: No focal deficits, no facial deformity, AO x3, power 5/5 in all limbs Extremities: Right lower limb mildly more swollen as compared to left. Bilateral lower limb swelling present. Discharge Data Data Completed and Pending: Completed Studies During Hospitalization Category Date Time Status XR chest 1V hany ble [id number] Stat Exams 01/14/20 12:59 Completed NM pul vent and p erfus* [id number] Routi ne Nuc Med 01/16/20 14:00 Completed CV echo limited 9 3308 Routine Ultrasound 01/16/20 06:00 Completed CV echo transesop hageal [id number] Routi ne Ultrasound 01/17/20 11:00 [place] [id number] Routin e Ultrasound 01/15/20 06:00 Completed Pending at discharge Category Date Time Status Arterial Blood Ga s Full Stat Lab 01/15/20 18:00 Received Labs from last 24 hours 01/18/20 01/18/20 01/18/20 06:08 04:30 04:30 WBC 7.0 RBC 5.09 Hgb 13.3 Hct 42.8 MCV 84.1 MCH 26.1 L MCHC 31.1 RDW 17.3 H Plt Count 110 L MPV 9.6 Neut % (Auto) 87.0 Lymph % (Auto) 5.3 Maverick % (Auto) 6.9 Eos % (Auto) 0.1 Baso % (Auto) 0.0 Neut # (Auto) 6.1 Lymph # (Auto) 0.4 L Maverick # (Auto) 0.5 Eos # (Auto) 0.0 Baso # (Auto) 0.0 Nucleated RBC % (a uto) 0 Nucleated RBCs # 0.0 Sodium 135 L Potassium 4.7 Chloride 102 Carbon Dioxide 22 Anion Gap 15.7 BUN 34 H Creatinine 1.0 GFR Calculation 76.2 L Glucose 131 H POC Glucose 107 Calculated Osmolal ity 279 L Calcium 8.8 Total Bilirubin 0.8 AST 9 ALT 28 Alkaline Phosphata se 68 Total Protein 4.9 L Albumin 3.0 L Globulin 1.9 01/17/20 01/17/20 01/17/20 20:18 15:57 10:56 WBC RBC Hgb Hct MCV MCH MCHC RDW Plt Count MPV Neut % (Auto) Lymph % (Auto) Maverick % (Auto) Eos % (Auto) Baso % (Auto) Neut # (Auto) Lymph # (Auto) Maverick # (Auto) Eos # (Auto) Baso # (Auto) Nucleated RBC % (a uto) Nucleated RBCs # Sodium Potassium Chloride Carbon Dioxide Anion Gap BUN Creatinine GFR Calculation Glucose POC Glucose 133 129 115 Calculated Osmolal ity Calcium Total Bilirubin AST ALT Alkaline Phosphata se Total Protein Albumin Globulin Vitals: Last Vital Signs Temp 97.9 F 01/18/20 07:05 Pulse 71 01/18/20 07:05 Resp 18 01/18/20 07:05 BP 108/76 01/18/20 07:05 Pulse Ox 95 01/18/20 07:05 Discharge Plan Discharge Patient Disposition: Home, Self-Care Condition: Stable Prescriptions: New Pacerone 200 mg Tablet 400 mg PO BID Qty: 14 RF: 0 metoprolol tartrate 25 mg Tablet 25 mg PO Q12H Qty: 60 RF: 0 Eliquis 5 mg Tablet 5 mg PO BID Qty: 60 RF: 0 amiodarone 200 mg tablet 200 mg PO DAILY Qty: 30 RF: 0 Continued Multiple Vitamins Tablet 1 tab PO DAILY RF: 0 atorvastatin 40 mg tablet 40 mg PO DAILY RF: 0 loperamide 2 mg capsule 2 mg PO QID PRN (Reason: Diarrhea) RF: 0 Zyrtec 10 mg Tablet 10 mg PO DAILY PRN (Reason: Allergy Symptoms) RF: 0 hydrocodone-acetaminophen 5-325 mg tablet 1 tab PO Q6H PRN (Reason: Pain) RF: 0 prednisone 20 mg tablet See Rx Instructions .ROUTE .COMPLEX RF: 0 prochlorperazine maleate 10 mg tablet 10 mg PO Q4H PRN (Reason: Nausea) RF: 0 sulfamethoxazole-trimethoprim 800-160 mg tablet See Rx Instructions .ROUTE .COMPLEX RF: 0 tamsulosin 0.4 mg capsule 0.4 mg PO BID RF: 0 pantoprazole 40 mg tablet,delayed release (DR/EC) 40 mg PO BID RF: 0 lorazepam 1 mg tablet 1 mg PO TID PRN (Reason: unknown) RF: 0 Bc Powder 1 packet PO PRN RF: 0 Discharge Orders: Discharge Order (Routine); Ordered 01/18/20 Ordered By: Alfonso Razo Referrals: Jay Baker DO [Primary Care Provider] - 2 weeks (You have an follow-up appointment with Dr. Baker on January 30 at 11:00a.m. If you have any questions or need to reschedule. Please, call ) Gabriella Huynh MD [Physician] - 2 weeks (You have follow-up appointment with Dr. Huynh on February 01 at 11:30a.m. If you have any questions or need to reschedule. 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
[2020-01-18] MEDS: sulfamethoxazole-trimeth DS 160-800 mg Tablet 1 TAB PO (10:36)
[2020-01-18 10:51] VITALS: BP 108/76; PULSE 71; RESP 18; TEMP 36.6; O2SAT 95
[2020-01-18 10:53] VITALS: PULSE 68; RESP 15; O2SAT 98
--- NOTE | 2020-01-18 11:02 | PM.PN ---
Subjective Subjective: Interval history: He has been doing well. No chest pain shortness of breath or dizziness. Medications: Reviewed: Yes Vitals/I&O/Wt Last Vital Signs Temp 97.9 F 01/18/20 10:51 Pulse 68 01/18/20 10:53 Resp 15 01/18/20 10:53 BP 108/76 01/18/20 10:51 Pulse Ox 98 01/18/20 10:53 01/17/20 01/18/20 01/18/20 22:59 06:59 14:59 Intake Total 240 / 480 240 / 240 Output Total 250 / 800 725 / 1525 Balance -10 / -320 -725 / -1045 240 / 240 Weight last 48 hrs Weight 260 lb Weight 260 lb Physical Exam Const: COMMON NORMALS: no acute distress, patient oriented x3 and alert GENERAL APPEARANCE: cooperative, comfortable, well kempt and well hydrated HENMT: COMMON NORMALS: hearing grossly normal bilaterally and moist oral mucous membranes Eye: COMMON NORMALS: EOMs intact bilaterally and no scleral icterus Neck/C-Spine: COMMON NORMALS: supple and no JVD CAROTIDS: Yes normal carotid upstroke Resp: COMMON NORMALS: clear to auscultation bilaterally AUSCULTATION: clear to auscultation bilaterally, no crackles, no rales, no rhonchi and no wheezes Cardio: COMMON NORMALS: no JVD, regular rhythm, S1 normal heart sound present, S2 normal heart sound present and Peripheral pulses 2+ throughout PALPATION: normal PMI RATE: Other RHYTHM: regular rhythm HEART SOUNDS: S1 normal heart sound present, S2 normal heart sound present, no click, no gallops and no murmurs BRUITS: no carotid bruits PERIPHERAL PULSES: Peripheral pulses 2+ throughout, radial pulses present, posterior tibial pulses present and dorsalis pedis present Extremity: GENERAL: No clubbing, No cyanosis, Yes edema (trace) and No pallor Neuro: COMMON NORMALS: patient oriented x3 SENSORIUM/ORIENTATION: Yes alert Psych: COMMON NORMALS: Normal thought process present and speech normal APPEARANCE: Yes well kempt SPEECH: Yes normal speech MOOD & AFFECT: Yes euthymic mood THOUGHT PROCESS: Normal thought process present THOUGHT CONTENT: Yes Normal thought content present Data : 01/18/20 04:30 01/18/20 04:30 A&P Assessment and plan (1) Atrial flutter: [id number]= 2/9 , 1 for hypertension and one for CHF -Patient's heart rate has been difficult to control in spite of multiple medications. With Ambulation patient heart rate jumped to 150s. He did not have any chest pain or shortness of breath but did complained of dizziness. -Patient continued to be tachycardic overnight and hence decision was made to proceed with GREGORY and cardioversion. -Patient successfully underwent cardioversion with congregational of normal sinus rhythm with PACs. -Continue amiodarone 400 mg twice daily x 7 days and then amiodarone 200 mg BID x 4 days followed by 200 mg daily and metoprolol tartrate 25 mg twice a day. Continue Eliquis -Follow-up in 2 to 3 weeks with me in [facility]. Status: Acute Qualifiers: Atrial flutter type: unspecified Qualified Code(s): I48.92 - Unspecified atrial flutter (2) Hyperlipidemia: Status: Acute (3) Prostate cancer: Status: Acute Additional A&P Information CHF: Mildly decompensated in setting of atrial flutter and rapid response; continue Lasix 20 mg daily. Thrombocytopenia Hyperglycemia with steroid use Chronic steroid use Thank you for allowing me to participate in patient's care. Please feel free to call with questions or concerns. Attestations Medical Necessity Statement*: Stable to be discharged home from cardiac standpoint. Coding Level of Care Code Acute Help Desk Coordinator for Garrett Tanner Diagnoses Atrial flutter I48.92 Atrial flutter type: unspecified Hyperlipidemia E78.5 Prostate cancer C61
--- NOTE | 2020-01-18 11:20 | PC.NURSE ---
Discharge instructions given per the physician's orders. Patient verbalized understanding of information and did not have any further questions. Iv has been removed. Patient spouse contacted for discharge.
[2020-01-18 11:34] VITALS: BP 114/80; PULSE 69; RESP 18; TEMP 36.6; O2SAT 97
[2020-01-20 18:26] LABS: ABG PCO2 35.2 mmHg (35-45); ABG PH Result 7.47 (7.35-7.45); Alveolar-Arterial Oxygen Gradi 19.7 mmHg (5-10); Arterial Blood Gas Hematocrit 39.8 % (42-52); Base Excess ABG 1.9 mmol/L (-2.0-2.0); Blood Gas Allen Test Pos; Blood Gas Operator Identificat GD; Blood Gas Sample Type Arterial; Carboxyhemoglobin 0.3 %THgb (0.4-20.1); HCO3 ABG 25.4 mmol/L (22-26); HGB O2 Sat 95.2 % (95-100); Ionized Calcium Level - ABG 1.1 mmol/L (1.1-1.4); Methemoglobin 1.2 % (0.4-1.5); Oxygen Saturation ABG 96.7; PO2 ABG 83.9 mmHg (80.0-100.0); Potassium Level - ABG 4.1 mmol/L (3.5-5.0)
== END 2020-01-18 11:50 | disposition home or self-care (01) | DRG 309 ==
LOC: ER 13:09 → ICU 17:09 → CSU 01-15 23:46
PROVIDERS: Emergency Medicine; Admitting Provider Student in an Organized Health Care Education/Training Program; PCP Electrodiagnostic Medicine; Visit Provider Student in an Organized Health Care Education/Training Program
DX: I48.92 Unspecified atrial flutter (principal); C79.51 Secondary malignant neoplasm of bone; I48.91 Unspecified atrial fibrillation; C61 Malignant neoplasm of prostate; E78.5 Hyperlipidemia, unspecified; Z03.818 Encounter for observation for suspected exposure to other biological agents ruled out; M79.89 Other specified soft tissue disorders; E09.9 Drug or chemical induced diabetes mellitus without complications; T38.0X5A Adverse effect of glucocorticoids and synthetic analogues, initial encounter; Z79.891 Long term (current) use of opiate analgesic; D69.6 Thrombocytopenia, unspecified
CPT/HCPCS: 12345; 36415; 36416; 36600; 71045; 78014; 80051; 80053; 80061; 80162; 81003; 82810; 82962; 83036; 83540; 83550; 83605; 83735; 83880; 83986; 84145; 84443; 84484; 85025; 85378; 85610; 87635; 93005; 93308; 93312; 93320; 93325; 93970; 94664; 96372; 96375; 99284; A9540; A9567; J1160; J1650; J1815; J2370; J2704; J3490; J7030; J7040; J7512

== ENCOUNTER 2020-01-24 10:38 | Emergency (ER) | payer BC, SELFPAY ==
[2020-01-24] VITALS (8 sets, daily range): BP systolic 106–123; BP diastolic 56–69; PULSE 66–104; RESP 16–83; TEMP 36.9; O2SAT 95–98; BMI 33.0
--- NOTE | 2020-01-24 11:05 | PC.NURSE ---
HAS PAIN IN RECTUM AREA WHEN IT SPASMS. STARTED ON ELIQUIS LAST WEEK DUE TO IRREGULAR HEART RHYTHM. 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 ALERT AND ORIENTED, NO ACUTE DISTRESS.
--- NOTE | 2020-01-24 11:21 | CTR_ITS ---
PROCEDURE INFORMATION: Exam: CT Abdomen And Pelvis With Contrast Exam date and time: 01/24/2020 1:04 PM Age: 59 years old Clinical indication: Other: Diarhhea; Prior surgery; Additional info: Gi bleed TECHNIQUE: Imaging protocol: Computed tomography of the abdomen and pelvis with intravenous contrast. Radiation optimization: All CT scans at this facility use at least one of these dose optimization techniques: automated exposure control; mA and/or kV adjustment per patient size (includes targeted exams where dose is matched to clinical indication); or iterative reconstruction. Contrast material: VISI; Contrast volume: 95 ml; Contrast route: IV; COMPARISON: [place] Abdomen/[place] o [id number] 01/06/2019 9:43 AM RADIATION DOSE METRICS: Total DLP: 1684.99 mGy-cm FINDINGS: Lungs: Atelectasis and airspace disease is present in the right lung base. Infection is not excluded. Liver: A 2.5 cm cyst is noted in the left hepatic lobe. Multiple other smaller subcentimeter hypodense lesions are noted throughout the liver. These are too small to characterize, but may represent cysts. These appear unchanged from the prior exam. Gallbladder and bile ducts: The gallbladder is severely distended or hydropic. No surrounding inflammation is present. Pancreas: Normal. No ductal dilation. Spleen: Normal. No splenomegaly. Adrenals: A new 15 mm nodule is noted in the right adrenal gland. Metastatic disease is possible. The left adrenal gland is unremarkable. Kidneys and ureters: There are two 10 mm hypodense lesions in the left kidney. These are too small to characterize, but could represent cysts. Small parapelvic cysts are also noted within both kidneys. There is no hydronephrosis. Stomach and bowel: There is no evidence of a bowel obstruction. A large amount of stool is noted within the ascending, transverse, and descending colon. There is diffuse thickening of the sigmoid colon and rectum. Infectious or inflammatory colitis is most likely. Numerous diverticular are noted in the sigmoid colon, but the findings are not suggestive of diverticulitis. Appendix: No evidence of appendicitis. Intraperitoneal space: Unremarkable. No free air. No significant fluid collection. Vasculature: Atherosclerotic calcifications are noted within the abdominal aorta. There is no aneurysm or dissection. Lymph nodes: Unremarkable. No enlarged lymph nodes. Bladder: Unremarkable as visualized. Reproductive: Unremarkable as visualized. Bones/joints: Widespread sclerotic osseous metastatic disease is present, new since the prior exam. A new pathologic posterior 11th rib fracture is noted. Soft tissues: A small fat containing umbilical hernia is present. There is an additional fat containing ventral supraumbilical hernia. Mild inflammation is noted within the herniated fat. CT/CT abdomen pelvis w con* [id number] IMPRESSION: 1. There is diffuse thickening of the sigmoid colon and rectum. Infectious or inflammatory colitis is most likely. 2. Widespread sclerotic osseous metastatic disease is present, new since the prior exam. 3. Atelectasis and airspace disease is present in the right lung base. Infection is not excluded. 4. The gallbladder is severely distended or hydropic. No surrounding inflammation is present. 5. A new 15 mm nodule is noted in the right adrenal gland. Metastatic disease is possible. Radiation Dose CTDIVOL = (mGy): DLP = 1684.99 (mGy-cm)
--- NOTE | 2020-01-24 11:22 | ED_ITS ---
HPI - General Adult General: Chief complaint: General Medical Stated complaint: rectal bleeding Time Seen by Provider: 01/24/20 10:41 History of Present Illness: HPI narrative: Patient was hospitalized approximately one week ago for atrial fibrillation. Patient had to be cardioverted before dismissal. Patient was also placed on Eliquis at the time of his dismissal from the hospital. Patient began to notice a small amount of blood 3-4 days ago. Patient states that the amount of blood is still not severe but is increasing in amount. 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 Hyperlipidemia Metastasis Prostate cancer Social History Smoking and tobacco status: never smoked Physical Exam HENMT: COMMON NORMALS: normocephalic HEAD & SCALP: normocephalic Neck/C-Spine: COMMON NORMALS: full ROM, no meningeal signs and no JVD Resp: COMMON NORMALS: normal respiratory effort, No use of accessory muscles and clear to auscultation bilaterally AUSCULTATION: clear to auscultation bilaterally Cardio: COMMON NORMALS: no JVD, regular rate and regular rhythm RATE: regular rate RHYTHM: regular rhythm Extremity: COMMON NORMALS: normal to inspection and full ROM Neuro: MENINGEAL SIGNS: Yes no meningeal signs Skin: GENERAL SKIN EXAM: pallor Course Vital Signs: Vital signs: Vital Signs Temperature 98.5 F 01/24/20 11:02 Pulse Rate 80 01/24/20 14:27 Respiratory Rate 18 01/24/20 14:27 Blood Pressure 118/59 01/24/20 14:27 Pulse Oximetry 96 01/24/20 14:27 MDM - General Adult MDM Narrative: Medical decision making narrative: Patient has known prostate cancer with metastasis. He was in the hospital 1 week ago and needed to be cardioverted. He was dismissed from the hospital he was placed on Eliquis. Patient has had rectal bleeding. CT scan reveals multiple sites of metastasis. It also shows inflammation throughout the sigmoid colon consistent with colitis. The patient has an appointment with his oncologist in [place] tomorrow. Therefore I will dismiss the patient to home. He is instructed to return for any problems and to see his oncologist tomorrow as scheduled. Lab Data: Labs: Lab Results 01/24/20 01/24/20 01/24/20 Range/Units 11:45 11:45 11:45 WBC 3.0 L (4.0-10.0) 10^3/ uL RBC 4.42 (4.1-5.3) 10^6/u L Hgb 11.7 (11.7-16.6) g/dL Hct 37.9 L (42.0-52.0) % MCV 85.7 (80-94) fL MCH 26.5 L (28.0-34.0) pg MCHC 30.9 (30.0-36.0) g/dL RDW 18.2 H (12.1-15.1) % Plt Count 218 (130-400) 10^3/c mm MPV 9.2 (7.4-10.4) fL Neut % (Auto) 63.6 % Lymph % (Auto) 19.1 % [place] % (Auto) 13.7 % Eos % (Auto) 1.0 % Baso % (Auto) 0.3 % Neut # (Auto) 1.9 (1.8-7.7) 10^3/u L Lymph # (Auto) 0.6 L (0.8-4.8) 10^3/u L [place] # (Auto) 0.4 (0.2-0.9) 10^3/u L Eos # (Auto) 0.0 (0.0-0.8) 10^3/u L Baso # (Auto) 0.0 (0.0-0.1) 10^3/u L Nucleated RBC % (a uto) 0 % Nucleated RBCs # 0.0 /100WBC PT 16.20 H (10.5-13.3) SECO NDS INR 1.26 H (0.8-1.2) APTT 26.5 (23.9-36.7) SECO NDS Sodium 136 (136-145) mmol/L Potassium 3.8 (3.5-5.1) mmol/L Chloride 101 (98-107) mmol/L Carbon Dioxide 25 (22-29) mmol/L Anion Gap 13.8 (5-19) BUN 21 (8-23) mg/dL Creatinine 1.2 (0.7-1.2) mg/dL GFR Calculation 61.8 L (90-130) mL/min Glucose 104 (65-115) mg/dL Calculated Osmolal ity 279 L (285-295) mOsm/k g Calcium 7.9 L (8.5-10.5) mg/dL Total Bilirubin 0.9 (0.15-1.2) mg/dL AST 14 (0-40) U/L ALT 28 (0-41) U/L Alkaline Phosphata se 69 (40-130) IU/L Total Protein 4.8 L (6.6-8.7) g/dL Albumin 2.8 L (3.5-5.2) g/dL Globulin 2.0 (1.3-4.6) g/dL Discharge Plan Discharge Patient Disposition: Home, Self-Care Clinical Impression: Acute GI bleeding, Prostate cancer, Acute colitis Metastasis Qualifiers: Area of secondary neoplastic involvement: unspecified site Qualified Code(s): C79.9 - Secondary malignant neoplasm of unspecified site Condition: Stable Prescriptions: No Action multivitamin [Multiple Vitamins] Tablet 1 tab PO DAILY RF: 0 atorvastatin 40 mg tablet 40 mg PO DAILY RF: 0 loperamide 2 mg capsule 2 mg PO QID PRN (Reason: Diarrhea) RF: 0 cetirizine [Zyrtec] 10 mg Tablet 10 mg PO DAILY PRN (Reason: Allergy Symptoms) RF: 0 hydrocodone-acetaminophen 5-325 mg tablet 1 tab PO Q6H PRN (Reason: Pain) RF: 0 prednisone 20 mg tablet See Rx Instructions .ROUTE .COMPLEX RF: 0 prochlorperazine maleate 10 mg tablet 10 mg PO Q4H PRN (Reason: Nausea) RF: 0 sulfamethoxazole-trimethoprim 800-160 mg tablet See Rx Instructions .ROUTE .COMPLEX RF: 0 tamsulosin 0.4 mg capsule 0.4 mg PO BID RF: 0 pantoprazole 40 mg tablet,delayed release (DR/EC) 40 mg PO BID RF: 0 lorazepam 1 mg tablet 1 mg PO TID PRN (Reason: unknown) RF: 0 Bc Powder 1 packet PO PRN RF: 0 amiodarone [Pacerone] 200 mg Tablet 400 mg PO BID Qty: 14 RF: 0 metoprolol tartrate 25 mg Tablet 25 mg PO Q12H Qty: 60 RF: 0 Eliquis 5 mg Tablet 5 mg PO BID Qty: 60 RF: 0 amiodarone 200 mg tablet 200 mg PO DAILY Qty: 30 RF: 0 diphenoxylate-atropine 2.5-0.025 mg tablet 1 tab PO QID PRN (Reason: Diarrhea) RF: 0 ibuprofen 200 mg Tablet 400 mg PO PRN RF: 0 Discharge Orders: Discharge Order (Routine); Ordered 01/24/20 Ordered By: Damian Franklin Referrals: Jay Baker DO [Primary Care Provider] - Coding Level of Care Code ED Customer Service Sales Associate for Chg Fwd Exam Detailed
[2020-01-24 11:56] LABS: Basophils % 0.3 %; Hematocrit 37.9 % (42.0-52.0); Hemoglobin 11.7 g/dL (11.7-16.6); Lymphocytes # 0.6 10^3/uL (0.8-4.8); Lymphocytes % 19.1 %; Mean Corpuscular HGB Conc 30.9 g/dL (30.0-36.0); Mean Corpuscular Hemoglobin 26.5 pg (28.0-34.0); Mean Corpuscular Volume 85.7 fL (80-94); Mean Platelet Volume 9.2 fL (7.4-10.4); Monocytes # 0.4 10^3/uL (0.2-0.9); Monocytes % 13.7 %; Neutrophils # 1.9 10^3/uL (1.8-7.7); Neutrophils % 63.6 %; Nucleated Red Blood Cells % 0 %; Platelet Count 218 10^3/cmm (130-400); Red Blood Count 4.42 10^6/uL (4.1-5.3); Red Cell Distribution Width 18.2 % (12.1-15.1)
[2020-01-24 12:06] LABS: INR 1.26 (0.8-1.2)
[2020-01-24 12:07] LABS: Partial Thromboplastin Time 26.5 SECONDS (23.9-36.7)
[2020-01-24 12:13] LABS: Alanine Aminotransferase 28 U/L (0-41); Albumin Level 2.8 g/dL (3.5-5.2); Alkaline Phosphatase 69 IU/L (40-130); Anion Gap 13.8 (5-19); Aspartate Amino Transferase 14 U/L (0-40); Blood Urea Nitrogen 21 mg/dL (8-23); Calcium 7.9 mg/dL (8.5-10.5); Carbon Dioxide 25 mmol/L (22-29); Chloride 101 mmol/L (98-107); Glomerular Filtration Rate 61.8 mL/min (90-130); Glucose 104 mg/dL (65-115); Osmolality Calculated 279 mOsm/kg (285-295); Potassium 3.8 mmol/L (3.5-5.1); Sodium 136 mmol/L (136-145); Total Bilirubin 0.9 mg/dL (0.15-1.2); Total Protein 4.8 g/dL (6.6-8.7)
[2020-01-24] MEDS: fentaNYL 50 mcg/mL INJ 2mL 25 MCG IVP (12:18)
[2020-01-24] MEDS: sodium chloride 0.9% 500 ML 999 ML IV (12:19)
[2020-01-24 12:36] LABS: Slide Review Slide Review Perform
--- NOTE | 2020-01-24 12:37 | PC.NURSE ---
PAIN MEDICATION HELPED WITH THE RECTAL AND LOWER STOMACH PAIN RATES 3/10. FLUIDS INFUSING. LIGHTS OFF NO ACUTE DISTRESS
[2020-01-24] MEDS: hydrocortisone 100 mg/2 mL SDV IVP (12:57)
[2020-01-24] MEDS: diphenhydrAMINE 50 mg/mL SDV 1mL IVP (12:57)
--- NOTE | 2020-01-24 13:04 | PC.NURSE ---
FLUIDS COMPLETED, MEDS GIVEN PER WRITTEN ORDER. NO ACUTE DISTRESS. WAITING FOR CT.
== END 2020-01-24 15:33 | disposition home or self-care (01) ==
PROVIDERS: Emergency Provider Family Medicine; PCP Electrodiagnostic Medicine
DX: K52.9 Noninfective gastroenteritis and colitis, unspecified (principal); C61 Malignant neoplasm of prostate; Z79.01 Long term (current) use of anticoagulants; E11.9 Type 2 diabetes mellitus without complications; E78.5 Hyperlipidemia, unspecified
CPT/HCPCS: 12345; 36415; 74177; 80053; 85025; 85610; 85730; 96374; 96375; 99283; J1200; J1720; J3010; J7040; Q9967

== ENCOUNTER 2020-02-10 19:45 | Emergency (ER) | payer BC, SELFPAY ==
--- NOTE | 2020-02-10 19:47 | ECG_ITS ---
Measurements Intervals [place] Rate: 90 P: 17 ME: 168 QRS: 2 QRSD: 82 T: 39 QT: 350 QTc: 430 SINUS RHYTHM LOW QRS VOLTAGE IN PRECORDIAL LEADS [QRS DEFLECTION < 1.0 mV IN CHEST LEADS] POSSIBLE RIGHT VENTRICULAR CONDUCTION DELAY [RSR (QR) IN V1/V2] NONSPECIFIC ST & T-WAVE ABNORMALITY Compared to ECG 01/17/2020 13:02:36 Low QRS voltage now present Possible ischemia no longer present T-wave abnormality still present Electronically Signed On 02-11-2020 15:00:09 CDT by Eri Chalres M.D. [email or web address]
--- NOTE | 2020-02-10 19:47 | XRR_ITS ---
PROCEDURE INFORMATION: Exam: XR Chest, 1 View Exam date and time: 02/10/2020 7:48 PM Age: 59 years old Clinical indication: Chest pain TECHNIQUE: Imaging protocol: XR of the chest Views: 1 view. COMPARISON: CR (CHEST, ) 01/14/2020 1:06 PM FINDINGS: Lungs: There is calcified granuloma in the right mid lung. There is some partial atelectasis at the right lung base. Visualized portions of the left lung are clear. Pleural space: Unremarkable. No pleural effusion. No pneumothorax. Heart/Mediastinum: Heart is within normal limits of size. Bones/joints: Unremarkable. XR/XR chest 1V portable [id number] IMPRESSION: Mild right basilar atelectasis.
[2020-02-10 19:52] VITALS: BP 104/67; PULSE 88; RESP 24; TEMP 36.6; O2SAT 94; BMI 35.1
[2020-02-10 20:48] LABS: Basophils % 0.1 %; Hematocrit 32.7 % (42.0-52.0); Lymphocytes # 0.4 10^3/uL (0.8-4.8); Lymphocytes % 4.3 %; Mean Corpuscular HGB Conc 30.6 g/dL (30.0-36.0); Mean Corpuscular Hemoglobin 27.2 pg (28.0-34.0); Mean Corpuscular Volume 89.1 fL (80-94); Mean Platelet Volume 9.3 fL (7.4-10.4); Monocytes # 0.6 10^3/uL (0.2-0.9); Monocytes % 6.3 %; Neutrophils % 88.2 %; Nucleated Red Blood Cells % 0 %; Platelet Count 190 10^3/cmm (130-400); Red Blood Count 3.67 10^6/uL (4.1-5.3); Red Cell Distribution Width 19.2 % (12.1-15.1); White Blood Count 9.1 10^3/uL (4.0-10.0)
[2020-02-10 21:03] LABS: Troponin(5th) Baseline 22 ng/L (0-15)
[2020-02-10 21:11] VITALS: BP 128/76; PULSE 82; RESP 22; O2SAT 94
[2020-02-10 21:11] LABS: Alanine Aminotransferase 17 U/L (0-41); Albumin Level 2.5 g/dL (3.5-5.2); Alkaline Phosphatase 69 IU/L (40-130); Anion Gap 16.1 (5-19); Aspartate Amino Transferase 9 U/L (0-40); Blood Urea Nitrogen 23 mg/dL (8-23); Calcium 8.1 mg/dL (8.5-10.5); Carbon Dioxide 22 mmol/L (22-29); Chloride 103 mmol/L (98-107); Globulin 1.9 g/dL (1.3-4.6); Glomerular Filtration Rate 68.3 mL/min (90-130); Glucose 167 mg/dL (65-115); NT Pro B Type Natriuretic Pept 151 pg/mL (0-125); Osmolality Calculated 285 mOsm/kg (285-295); Potassium 4.1 mmol/L (3.5-5.1); Sodium 137 mmol/L (136-145); Total Bilirubin 0.5 mg/dL (0.15-1.2); Total Protein 4.4 g/dL (6.6-8.7)
--- NOTE | 2020-02-10 21:47 | ECG_ITS ---
Measurements Intervals [place] Rate: 65 P: 23 TN: 180 QRS: 14 QRSD: 85 T: 70 QT: 385 QTc: 401 SINUS RHYTHM POSSIBLE RIGHT VENTRICULAR CONDUCTION DELAY [RSR (QR) IN V1/V2] NONSPECIFIC T-WAVE ABNORMALITY Compared to ECG 01/17/2020 13:02:36 Possible ischemia no longer present T-wave abnormality still present Electronically Signed On 02-12-2020 21:10:07 CDT by Eri Charles M.D. [email or web address]
[2020-02-10] MEDS: FUROsemide 10 mg/mL SDV 4mL 40 MG IVP (22:03)
--- NOTE | 2020-02-10 22:28 | PC.NURSE ---
EKG done at 2225 and shown to ER doctor
--- NOTE | 2020-02-10 22:42 | ED_ITS ---
HPI - SOB/Dyspnea General: Chief Complaint: Shortness of Breath/Dyspnea Stated Complaint: sob, leg swelling Time Seen by Provider: 02/10/20 20:15 Source: patient Mode of arrival: ambulatory History of Present Illness: HPI Narrative: 59-year-old male being treated for prostate cancer who presents with progressive leg swelling that has been going on for a few days. He is also having mild shortness of breath. He is having heaviness in his legs from all the swelling. He has been elevating his leg and when compression stockings which has helped with the swelling. He does not have a history of congestive heart failure. No fever, no redness in his legs. Associated symptoms: Deny abdominal pain, fever(s), nausea, palpitations, polydipsia, polyuria or vomiting Review of Systems General: Reports: 10 or more systems reviewed and unremarkable except in HPI and below Const: Denies: fever(s), chills or body aches Card: Denies: palpitations, irregular heart rhythm, edema or swelling of feet/ankles Resp: Reports: dyspnea; Denies: productive cough or non-productive cough GI: Denies: abdominal pain, nausea or vomiting : Denies: flank pain, dysuria, urinary frequency, urinary urgency or urinary hesitancy Musc: Reports: extremity swelling; Denies: neck pain or back pain Skin/Breast: Denies: rash, pruritus or erythema Neuro: Denies: headache(s), numbness in extremities or weakness in extremities Endo: Denies: polyuria, polydipsia or tired all the time [facility] PFSH: Medical History (Updated 02/10/20 @ 23:14 by Jaswinder Thomas [place] [facility] [place] steroid use 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 Hyperlipidemia Metastasis Prostate cancer Social History Smoking and tobacco status: never smoked Physical Exam Const: COMMON NORMALS: no acute distress, average body habitus, patient oriented x3, no limitations, healthy appearing, alert and well nourished Neck/C-Spine: COMMON NORMALS: full ROM, supple, no meningeal signs, no JVD and No carotid bruits Resp: COMMON NORMALS: normal respiratory effort, No retractions, No use of accessory muscles, clear to auscultation bilaterally and percussion normal AUSCULTATION: clear to auscultation bilaterally PERCUSSION: percussion normal Cardio: COMMON NORMALS: no JVD, regular rate, regular rhythm, S1 normal heart sound present, S2 normal heart sound present, No gallops present (Cardio), No clicks present (Cardio), No murmurs present (Cardio), No rub (Cardio) and Peripheral pulses 2+ throughout RATE: regular rate RHYTHM: regular rhythm HEART SOUNDS: S1 normal heart sound present and S2 normal heart sound present PERIPHERAL PULSES: Peripheral pulses 2+ throughout GI: COMMON NORMALS: Normal to inspection, nondistended, normoactive bowel sounds present, Soft to palpation, non-tender, No hepatosplenomegaly present, no masses and no bruits PALPATION: Yes Soft to palpation and Yes No hepatosplenomegaly present : COMMON NORMALS: Yes no CVA tenderness BLADDER/KIDNEY EXAM: Yes no CVA tenderness Back/Pelvis: COMMON NORMALS: no CVA tenderness Extremity: COMMON NORMALS: normal to inspection, full ROM, capillary refill normal and no calf tenderness GENERAL: Yes edema (3-4+ pitting pedal edema bilaterally) Neuro: COMMON NORMALS: patient oriented x3 SENSORIUM/ORIENTATION: Yes alert MENINGEAL SIGNS: Yes no meningeal signs Skin: COMMON NORMALS: no rashes or lesions noted, no wounds, turgor normal, no jaundice, no petechiae and no mottling GENERAL SKIN EXAM: no rashes or lesions noted and turgor normal Course Reevaluation(s): Reevaluation #1: Discussed his lab and imaging findings with him. Unremarkable. proBNP mildly elevated but not significant. He is already diuresing. We will discharge him home with a prescription for oral furosemide. He voiced understanding and is in agreement with the plan. Time: 22:43 Vital Signs: Vital signs: Vital Signs Temperature 98.9 F 02/10/20 23:40 Pulse Rate 66 02/10/20 23:40 Respiratory Rate 180 H 02/10/20 23:40 Blood Pressure 108/78 02/10/20 23:40 Pulse Oximetry 94 02/10/20 23:40 MDM - SOB/Dyspnea MDM Narrative: Medical decision making narrative: 59-year-old gentleman with bilateral pitting pedal edema. Evaluation is not consistent with congestive heart failure, troponin not significant 2-hour delta. He was given a dose of intravenous furosemide here and sent home with a prescription for oral furosemide. He has had this in the past and needed furosemide. Medical Records: Attestation: I reviewed the patient's medical records. Lab Data: Attestation: I reviewed the patient's lab results. Labs: Lab Results 02/10/20 02/10/20 02/10/20 Range/Units 20:30 20:30 20:30 WBC 9.1 (4.0-10.0) 10^3/ uL RBC 3.67 L (4.1-5.3) 10^6/u L Hgb 10.0 L (11.7-16.6) g/dL Hct 32.7 L (42.0-52.0) % MCV 89.1 (80-94) fL MCH 27.2 L (28.0-34.0) pg MCHC 30.6 (30.0-36.0) g/dL RDW 19.2 H (12.1-15.1) % Plt Count 190 (130-400) 10^3/c mm MPV 9.3 (7.4-10.4) fL Neut % (Auto) 88.2 % Lymph % (Auto) 4.3 % Charl[place] % (Auto) 6.3 % Eos % (Auto) 0.0 % Baso % (Auto) 0.1 % Neut # (Auto) 8.0 H (1.8-7.7) 10^3/u L Lymph # (Auto) 0.4 L (0.8-4.8) 10^3/u L [place] # (Auto) 0.6 (0.2-0.9) 10^3/u L Eos # (Auto) 0.0 (0.0-0.8) 10^3/u L Baso # (Auto) 0.0 (0.0-0.1) 10^3/u L Nucleated RBC % (a uto) 0 % Nucleated RBCs # 0.0 /100WBC Sodium 137 (136-145) mmol/L Potassium 4.1 (3.5-5.1) mmol/L Chloride 103 (98-107) mmol/L Carbon Dioxide 22 (22-29) mmol/L Anion Gap 16.1 (5-19) BUN 23 (8-23) mg/dL Creatinine 1.1 (0.7-1.2) mg/dL GFR Calculation 68.3 L (90-130) mL/min Glucose 167 H (65-115) mg/dL Calculated Osmolal ity 285 (285-295) mOsm/k g Calcium 8.1 L (8.5-10.5) mg/dL Total Bilirubin 0.5 (0.15-1.2) mg/dL AST 9 (0-40) U/L ALT 17 (0-41) U/L Alkaline Phosphata se 69 (40-130) IU/L Troponin T Baselin e 22 H (0-15) ng/L Troponin T 120 Min [place] (0-15) ng/L Delta Troponin T (0-10) ABS# NT-Pro-B Natriuret Pep 151 H (0-125) pg/mL Total Protein 4.4 L (6.6-8.7) g/dL Albumin 2.5 L (3.5-5.2) g/dL Globulin 1.9 (1.3-4.6) g/dL 02/10/20 Range/Units 22:28 WBC (4.0-10.0) 10^3/ uL RBC (4.1-5.3) 10^6/u L Hgb (11.7-16.6) g/dL Hct (42.0-52.0) % MCV (80-94) fL MCH (28.0-34.0) pg MCHC (30.0-36.0) g/dL RDW (12.1-15.1) % Plt Count (130-400) 10^3/c mm MPV (7.4-10.4) fL Neut % (Auto) % Lymph % (Auto) % [place] % (Auto) % Eos % (Auto) % Baso % (Auto) % Neut # (Auto) (1.8-7.7) 10^3/u L Lymph # (Auto) (0.8-4.8) 10^3/u L [place] # (Auto) (0.2-0.9) 10^3/u L Eos # (Auto) (0.0-0.8) 10^3/u L Baso # (Auto) (0.0-0.1) 10^3/u L Nucleated RBC % (a uto) % Nucleated RBCs # /100WBC Sodium (136-145) mmol/L Potassium (3.5-5.1) mmol/L Chloride (98-107) mmol/L Carbon Dioxide (22-29) mmol/L Anion Gap (5-19) BUN (8-23) mg/dL Creatinine (0.7-1.2) mg/dL GFR Calculation (90-130) mL/min Glucose (65-115) mg/dL Calculated Osmolal ity (285-295) mOsm/k g Calcium (8.5-10.5) mg/dL Total Bilirubin (0.15-1.2) mg/dL AST (0-40) U/L ALT (0-41) U/L Alkaline Phosphata se (40-130) IU/L Troponin T Baselin e (0-15) ng/L Troponin T 120 Min [place] 24.06 H (0-15) ng/L Delta Troponin T 2.06 (0-10) ABS# NT-Pro-B Natriuret Pep (0-125) pg/mL Total Protein (6.6-8.7) g/dL Albumin (3.5-5.2) g/dL Globulin (1.3-4.6) g/dL Imaging Data^: CXR: Radiologist's impression: [place] [address] XRay Report Signed Patient: Cj Gleason #: [id number] : 9Acct#:[id number] Age/Sex: 59 / MADM Date: 02/10/20 Loc: ERRoom/Bed: Attending Dr: Ordering Provider/Ordering MD: Mikala Mercado Date of Service: 02/10/20 Procedure(s): XR chest 1V portable [id number] Accession Number(s): [id number] Report Number: [id number] PROCEDURE INFORMATION: Exam: XR Chest, 1 View Exam date and time: 02/10/2020 7:48 PM Age: 59 years old Clinical indication: Chest pain TECHNIQUE: Imaging protocol: XR of the chest Views: 1 view. COMPARISON: CR (CHEST, ) 01/14/2020 1:06 PM FINDINGS: Lungs: There is calcified granuloma in the right mid lung. There is some partial atelectasis at the right lung base. Visualized portions of the left lung are clear. Pleural space: Unremarkable. No pleural effusion. No pneumothorax. Heart/Mediastinum: Heart is within normal limits of size. Bones/joints: Unremarkable. XR/XR chest 1V portable [id number] IMPRESSION: Mild right basilar atelectasis. Dictated By:Salvatore Byers Signed By:Blessing Byersigned Date/Time:02/10/202049 DD/ 48 EKG Data^: EKG 1: Attestation: I personally reviewed and interpreted this EKG as follows: EKG Interpretation Date: 02/10/20 EKG interpretation time: 22:32 Prior EKG tracings: not available for review Interpretation: Normal sinus rhythm. Heart rate 65 bpm. Right ventricular conduction delay. No ST changes. Discharge Plan Discharge Patient Disposition: Home, Self-Care Clinical Impression: Pedal edema Condition: Stable Prescriptions: New Lasix 20 mg tablet 20 mg PO DAILY Qty: 3 RF: 0 Continued multivitamin [Multiple Vitamins] Tablet 1 tab PO DAILY RF: 0 loperamide 2 mg capsule 2 mg PO QID PRN (Reason: Diarrhea) RF: 0 cetirizine [Zyrtec] 10 mg Tablet 10 mg PO DAILY PRN (Reason: Allergy Symptoms) RF: 0 hydrocodone-acetaminophen 5-325 mg tablet 1 tab PO Q6H PRN (Reason: Pain) RF: 0 prednisone 20 mg tablet See Rx Instructions .ROUTE .COMPLEX RF: 0 prochlorperazine maleate 10 mg tablet 10 mg PO Q4H PRN (Reason: Nausea) RF: 0 sulfamethoxazole-trimethoprim 800-160 mg tablet See Rx Instructions .ROUTE .COMPLEX RF: 0 tamsulosin 0.4 mg capsule 0.4 mg PO BID RF: 0 pantoprazole 40 mg tablet,delayed release (DR/EC) 40 mg PO BID RF: 0 lorazepam 1 mg tablet 1 mg PO TID PRN (Reason: unknown) RF: 0 Bc Powder 1 packet PO PRN RF: 0 metoprolol tartrate 25 mg Tablet 25 mg PO Q12H Qty: 60 RF: 0 amiodarone 200 mg tablet 200 mg PO DAILY Qty: 30 RF: 0 diphenoxylate-atropine 2.5-0.025 mg tablet 1 tab PO QID PRN (Reason: Diarrhea) RF: 0 Discharge Orders: Discharge Order (Routine); Ordered 02/10/20 Ordered By: Jaswinder Thomas Referrals: Jay Baker DO [Primary Care Provider] - 4-7 days Patient Instructions: Leg Edema (ED) Activity Restrictions/Additional Instructions: Return for any new or worsening symptoms. Follow-up with your primary care provider within 1 week. Take the Lasix as prescribed. Discharge Date/Time: 02/10/20 23:46 Coding Level of Care Code ED Propagation Manager for Garrett Tanner
[2020-02-10 22:57] LABS: Troponin 5 2HR 24.06 ng/L (0-15); Troponin 5 2HR Delta 2.06 ABS# (0-10)
--- NOTE | 2020-02-10 22:59 | PC.NURSE ---
care and report given to Yvette MENA
[2020-02-10 23:32] VITALS: BP 108/78; PULSE 65; RESP 20; TEMP 37.2; O2SAT 96
[2020-02-10 23:40] VITALS: BP 108/78; PULSE 66; RESP 180; TEMP 37.2; O2SAT 94
== END 2020-02-10 23:46 | disposition home or self-care (01) ==
PROVIDERS: Physician Assistant; Emergency Provider Family Medicine; PCP Electrodiagnostic Medicine
DX: R60.0 Localized edema (principal); E11.9 Type 2 diabetes mellitus without complications; E78.5 Hyperlipidemia, unspecified; Z85.46 Personal history of malignant neoplasm of prostate
CPT/HCPCS: 12345; 71045; 80053; 83880; 84484; 85025; 93005; 96374; 99283; J1940

== ENCOUNTER 2020-02-21 02:01 | Emergency (ER) | payer BC, SELFPAY ==
[2020-02-21] VITALS (9 sets, daily range): BP systolic 81–102; BP diastolic 56–68; PULSE 77–891; RESP 14–19; TEMP 36.7; O2SAT 94–99; BMI 33.7
--- NOTE | 2020-02-21 02:08 | XR_ITS ---
WS: [id number] PORTABLE CHEST HISTORY: sob COMPARISON: 02/10/2020 There are numerous pulmonary nodules noted bilaterally. These have been previously described. CT ches t performed on the same day confirms multiple pulmonary nodules. No pleural effusion or pneumothorax. Cardiac size: Normal. Mediastinum/Aorta: Normal mediastinum. No osseous abnormality seen. XR/XR chest 1V portable [id number] IMPRESSION: 1. Multiple bilateral pulmonary nodules. Described on chest CT performed on same day. No focal consolidation or lobar collapse to suggest pneumonia.
--- NOTE | 2020-02-21 02:08 | ECG_ITS ---
[facility] Test Date: 2020-02-21 Pat Name: Cj Gleason Department: Room: Gender: Male Chief Radiation Therapist: : 1960 Requested By: Fernanda Ludwig Order Number: [id number] Dilma MD: Eri Charles M.D. Measurements Intervals [place] Rate: 85 P: 38 TX: 175 QRS: 3 QRSD: 94 T: 11 QT: 338 QTc: 402 Interpretive Statements SINUS RHYTHM WITH OCCASIONAL SUPRAVENTRICULAR PREMATURE COMPLEXES POSSIBLE RIGHT VENTRICULAR CONDUCTION DELAY [RSR (QR) IN V1/V2] NONSPECIFIC ST & T-WAVE ABNORMALITY Compared to ECG 02/10/2020 22:32:03 No significant changes Electronically Signed On 02-21-2020 23:38:24 CDT by Eri Charles M.D. [email or web address] [email or web address] general hospitalPlacemeterblanchard [email or web address]/[id number] f
--- NOTE | 2020-02-21 02:09 | W.ED.SOB ---
HPI - SOB/Dyspnea General: Chief Complaint: Shortness of Breath/Dyspnea Stated Complaint: SOB Time Seen by Provider: 02/21/20 02:07 Source: patient and EMS Mode of arrival: EMS Limitations: no limitations History of Present Illness: HPI Narrative: 59-year-old male here from EMS states he got up tonight to use the restroom and felt very short of breath and states he felt like he was going to pass out. He states he can get up and walk without getting short of breath or feeling like he did pass out and called EMS. When EMS arrived his oxygen sat was 92%. Patient does have a history of prostate cancer and is receiving treatments for that. He states he had increased edema and takes Lasix 20 mg twice daily. He denies any fevers or cough. He denies any chest pain. MD elicited complaint: shortness of breath Associated symptoms: Reports syncope; Deny abdominal pain, fever(s), nausea or vomiting Review of Systems Const: Denies: fever(s), chills, body aches or change in appetite Eyes: Denies: blurry vision or eye discomfort ENMT: Denies: throat pain or dental pain Card: Reports: syncope Resp: Reports: dyspnea GI: Denies: abdominal pain, nausea, vomiting or diarrhea : Denies: dysuria Musc: Denies: neck pain or back pain Skin/Breast: Denies: rash Neuro: Denies: headache(s) Psych: Denies: depression Benjam[place]/Lymph: Denies: easy bruising All/Imm: Denies: urticaria PFSH ED PFSH: Medical History Chronic steroid use 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 Hyperlipidemia Metastasis Prostate cancer Social History Smoking and tobacco status: never smoked Physical Exam Const: COMMON NORMALS: no acute distress, patient oriented x3 and healthy appearing HENMT: COMMON NORMALS: normocephalic and atraumatic HEAD & SCALP: normocephalic and atraumatic Eye: COMMON NORMALS: Equal, round and reactive pupils present and EOMs intact bilaterally PUPIL: Yes Equal, round and reactive pupils present Neck/C-Spine: COMMON NORMALS: full ROM and supple Chest: COMMONS NORMALS: normal inspection of the chest and normal palpation of entire chest wall Resp: COMMON NORMALS: normal respiratory effort, No retractions, No use of accessory muscles and clear to auscultation bilaterally AUSCULTATION: clear to auscultation bilaterally Cardio: COMMON NORMALS: regular rate, regular rhythm and No murmurs present (Cardio) RATE: regular rate RHYTHM: regular rhythm GI: COMMON NORMALS: Normal to inspection, nondistended, normoactive bowel sounds present, Soft to palpation, non-tender and no masses PALPATION: Yes Soft to palpation Extremity: COMMON NORMALS: normal to inspection and full ROM NARRATIVE EXTREMITY EXAM: 2+ pulmonary edema Neuro: COMMON NORMALS: patient oriented x3, moves all extremities and no focal motor deficits Psych: COMMON NORMALS: mental status grossly normal, Normal thought process present and cooperative THOUGHT PROCESS: Normal thought process present Skin: COMMON NORMALS: no rashes or lesions noted and no wounds GENERAL SKIN EXAM: no rashes or lesions noted Course Vital Signs: Vital signs: Vital Signs Temperature 98.0 F 02/21/20 02:07 Pulse Rate 81 02/21/20 05:44 Respiratory Rate 17 02/21/20 05:44 Blood Pressure 98/65 02/21/20 05:44 Pulse Oximetry 98 02/21/20 05:44 MDM - SOB/Dyspnea MDM Narrative: Medical decision making narrative: Patient presents here with pulmonary embolism causing heart strain. Patient has an elevated troponin and BNP. Patient has been stable while here. Will transfer for higher level of care to [facility] as he does have heart strain and could need a embolectomy by IR. Spoke to side puller at [facility] who is excepting. Lab Data: Labs: Lab Results 02/21/20 02/21/20 02/21/20 Range/Units 02:21 02:21 03:16 WBC (4.0-10.0) 10^3/ uL RBC (4.1-5.3) 10^6/u L Hgb (11.7-16.6) g/dL Hct (42.0-52.0) % MCV (80-94) fL MCH (28.0-34.0) pg MCHC (30.0-36.0) g/dL RDW (12.1-15.1) % Plt Count (130-400) 10^3/c mm MPV (7.4-10.4) fL Neut % (Auto) % Lymph % (Auto) % [place] % (Auto) % Eos % (Auto) % Baso % (Auto) % Neut # (Auto) (1.8-7.7) 10^3/u L Lymph # (Auto) (0.8-4.8) 10^3/u L [place] # (Auto) (0.2-0.9) 10^3/u L Eos # (Auto) (0.0-0.8) 10^3/u L Baso # (Auto) (0.0-0.1) 10^3/u L Nucleated RBC % (a uto) % Nucleated RBCs # /100WBC PT 13.40 H (10.5-13.3) SECO NDS INR 0.99 (0.8-1.2) Sodium 140 (136-145) mmol/L Potassium 3.5 (3.5-5.1) mmol/L Chloride 100 (98-107) mmol/L Carbon Dioxide 24 (22-29) mmol/L Anion Gap 19.5 H (5-19) BUN 19 (8-23) mg/dL Creatinine 1.2 (0.7-1.2) mg/dL GFR Calculation 61.8 L (90-130) mL/min Glucose 106 (65-115) mg/dL Calculated Osmolal ity 287 (285-295) mOsm/k g Calcium 8.5 (8.5-10.5) mg/dL Total Bilirubin 0.5 (0.15-1.2) mg/dL AST 15 (0-40) U/L ALT 20 (0-41) U/L Alkaline Phosphata se 82 (40-130) IU/L Troponin T Baselin e 105 H* (0-15) ng/L Troponin T 120 Min [place] (0-15) ng/L Delta Troponin T (0-10) ABS# NT-Pro-B Natriuret Pep 962 H (0-125) pg/mL Total Protein 5.1 L (6.6-8.7) g/dL Albumin 3.0 L (3.5-5.2) g/dL Globulin 2.1 (1.3-4.6) g/dL 02/21/20 02/21/20 Range/Units 04:41 05:40 WBC 8.5 (4.0-10.0) 10^3/ uL RBC 3.71 L (4.1-5.3) 10^6/u L Hgb 10.2 L (11.7-16.6) g/dL Hct 32.7 L (42.0-52.0) % MCV 88.1 (80-94) fL MCH 27.5 L (28.0-34.0) pg MCHC 31.2 (30.0-36.0) g/dL RDW 18.0 H (12.1-15.1) % Plt Count 162 (130-400) 10^3/c mm MPV 9.6 (7.4-10.4) fL Neut % (Auto) 83.3 % Lymph % (Auto) 7.5 % [place] % (Auto) 7.8 % Eos % (Auto) 0.0 % Baso % (Auto) 0.2 % Neut # (Auto) 7.1 (1.8-7.7) 10^3/u L Lymph # (Auto) 0.6 L (0.8-4.8) 10^3/u L [place] # (Auto) 0.7 (0.2-0.9) 10^3/u L Eos # (Auto) 0.0 (0.0-0.8) 10^3/u L Baso # (Auto) 0.0 (0.0-0.1) 10^3/u L Nucleated RBC % (a uto) 0 % Nucleated RBCs # 0.0 /100WBC PT (10.5-13.3) SECO NDS INR (0.8-1.2) Sodium (136-145) mmol/L Potassium (3.5-5.1) mmol/L Chloride (98-107) mmol/L Carbon Dioxide (22-29) mmol/L Anion Gap (5-19) BUN (8-23) mg/dL Creatinine (0.7-1.2) mg/dL GFR Calculation (90-130) mL/min Glucose (65-115) mg/dL Calculated Osmolal ity (285-295) mOsm/k g Calcium (8.5-10.5) mg/dL Total Bilirubin (0.15-1.2) mg/dL AST (0-40) U/L ALT (0-41) U/L Alkaline Phosphata se (40-130) IU/L Troponin T Baselin e (0-15) ng/L Troponin T 120 Min [place] 142.7 H (0-15) ng/L Delta Troponin T 37.7 H* (0-10) ABS# NT-Pro-B Natriuret Pep (0-125) pg/mL Total Protein (6.6-8.7) g/dL Albumin (3.5-5.2) g/dL Globulin (1.3-4.6) g/dL Imaging Data^: CXR: Attestation: I personally reviewed and interpreted this imaging study as follows: My impression: No acute abnormality CT Chest: Attestation: I personally reviewed and interpreted this imaging study as follows: Radiologist's impression: [address] [address] [address] Scan Report Signed Patient: Cj Gleason Unit #: [id number] : 1960 Age/Sex: 59 / M ADM Date: 02/21/20 Loc: ER Room/Bed: Attending Dr: Ordering Provider/Ordering MD: Fernanda Ludwig MD Date of Service: 02/21/20 Procedure(s): CT angio chest PE protcl [id number] Accession Number(s): [id number] Report Number: [id number] PROCEDURE INFORMATION: Exam: CT Angiography Chest With Contrast Exam date and time: 02/21/2020 3:19 AM Age: 59 years old Clinical indication: Dyspnea; Additional info: SOB TECHNIQUE: Imaging protocol: Computed tomographic angiography of the chest with intravenous contrast. 3D rendering: MIP and/or 3D reconstructed images were created by the technologist. Radiation optimization: All CT scans at this facility use at least one of these dose optimization techniques: automated exposure control; mA and/or kV adjustment per patient size (includes targeted exams where dose is matched to clinical indication); or iterative reconstruction. Contrast material: VISI; Contrast volume: 95 ml; Contrast route: INTRAVENOUS (IV); COMPARISON: CR (CHEST, ) 02/10/2020 8:08 PM RADIATION DOSE METRICS: Total DLP (mGy-cm): 667.22 FINDINGS: Pulmonary arteries: Prominent bilateral and extensive expansile pulmonary emboli within numerous segmental and subsegmental arteries bilaterally with saddle embolus involving the main pulmonary arterial bifurcation and prominent embolus within the distal right and left main pulmonary arteries. Aorta: Unremarkable. No aortic aneurysm. No aortic dissection. Lungs: Numerous bilateral pulmonary nodules most prominently involving the upper lobes a few demonstrating cavitation with largest pleural-based nodule anterior left upper lobe measuring 2.1 cm. Partially wedge configured opacity right lower lobe laterally suggesting atelectasis or area of pneumonitis. Minor pleural based scarring or atelectasis at the left costophrenic angle. Minor right lower lobe posterior pleural parenchymal scarring or atelectasis. Calcified granuloma right midlung. Pleural space: Unremarkable. No pneumothorax. No pleural effusion. Heart: Abnormal right to left ventricular ratio 2.0. Calcification distribution of coronary arteries. Lymph nodes: Unremarkable. No enlarged lymph nodes. Liver: Cysts within the liver largest measuring 2.5 cm. Several are too small for definitive characterization. Nodule right adrenal gland measures 1.7 cm. Bones/joints: Numerous areas of sclerosis throughout osseous structures of the spine, ribs, sternum and scapula bilaterally. Soft tissues: Midline upper abdominal wall hernia containing fatty omentum. CT/CT angio chest PE protcl [id number] IMPRESSION: 1. Extensive pulmonary emboli including saddle embolus. 2. Bilateral pulmonary nodules predominantly upper lobe a few of which show cavitation which could be metastatic nodules versus atypical infectious etiology to include fungal or tuberculous etiologies. Fleischner follow up recommendations for incidental nodules are not indicated. Follow up per patient's medical condition. 3. Diffuse skeletal sclerotic metastases. 4. Hepatic cysts several of which are too small for definitive characterization.Recommend further evaluation with liver MRI. 5. Right adrenal gland nodule.Recommend adrenal CT. May consider chemical shift MRI (CS-MR). 6. Focal opacities of lower lungs most suggestive of scarring or atelectasis. Small focal pulmonary infarct at the right lower lobe laterally would be included in the differential. EKG Data^: EKG 1: Attestation: I personally reviewed and interpreted this EKG as follows: EKG Interpretation Date: 02/21/20 EKG interpretation time: 02:54 Interpretation: nsr hr [address] or t wave abnormalities qrs 94 qtc 380 Critical Care Time Critical Care Time: Critical Care Time: Yes Total Critical Care Time: 36 Attestation: This case had a high probability of a clinically significant, sudden, or life threatening deterioration of this patient's condition which required my full and direct attention, intervention and personal management. Discharge Plan Discharge Patient Disposition: Xfer Other Clinical Impression: Pulmonary embolism Qualifiers: Pulmonary embolism type: saddle Chronicity: acute Acute cor pulmonale presence: unspecified Qualified Code(s): I26.92 - Saddle embolus of pulmonary artery without acute cor pulmonale Condition: Stable Discharge Orders: Transfer Out of Facility (Order); Ordered 02/21/20 Ordered By: Fernanda Ludwig Referrals: Jay Baker DO [Primary Care Provider] - Coding Level of Care Code ED Associate Creative Director for Chg Fwd Exam Comprehensive
[2020-02-21 02:56] LABS: Alanine Aminotransferase 20 U/L (0-41); Alkaline Phosphatase 82 IU/L (40-130); Anion Gap 19.5 (5-19); Aspartate Amino Transferase 15 U/L (0-40); Blood Urea Nitrogen 19 mg/dL (8-23); Calcium 8.5 mg/dL (8.5-10.5); Carbon Dioxide 24 mmol/L (22-29); Chloride 100 mmol/L (98-107); Globulin 2.1 g/dL (1.3-4.6); Glomerular Filtration Rate 61.8 mL/min (90-130); Glucose 106 mg/dL (65-115); NT Pro B Type Natriuretic Pept 962 pg/mL (0-125); Osmolality Calculated 287 mOsm/kg (285-295); Potassium 3.5 mmol/L (3.5-5.1); Sodium 140 mmol/L (136-145); Total Bilirubin 0.5 mg/dL (0.15-1.2); Total Protein 5.1 g/dL (6.6-8.7)
--- NOTE | 2020-02-21 03:05 | CTR_ITS ---
PROCEDURE INFORMATION: Exam: CT Angiography Chest With Contrast Exam date and time: 02/21/2020 3:19 AM Age: 59 years old Clinical indication: Dyspnea; Additional info: SOB TECHNIQUE: Imaging protocol: Computed tomographic angiography of the chest with intravenous contrast. 3D rendering: MIP and/or 3D reconstructed images were created by the technologist. Radiation optimization: All CT scans at this facility use at least one of these dose optimization techniques: automated exposure control; mA and/or kV adjustment per patient size (includes targeted exams where dose is matched to clinical indication); or iterative reconstruction. Contrast material: VISI; Contrast volume: 95 ml; Contrast route: INTRAVENOUS (IV); COMPARISON: CR (CHEST, ) 02/10/2020 8:08 PM RADIATION DOSE METRICS: Total DLP (mGy-cm): 667.22 FINDINGS: Pulmonary arteries: Prominent bilateral and extensive expansile pulmonary emboli within numerous segmental and subsegmental arteries bilaterally with saddle embolus involving the main pulmonary arterial bifurcation and prominent embolus within the distal right and left main pulmonary arteries. Aorta: Unremarkable. No aortic aneurysm. No aortic dissection. Lungs: Numerous bilateral pulmonary nodules most prominently involving the upper lobes a few demonstrating cavitation with largest pleural-based nodule anterior left upper lobe measuring 2.1 cm. Partially wedge configured opacity right lower lobe laterally suggesting atelectasis or area of pneumonitis. Minor pleural based scarring or atelectasis at the left costophrenic angle. Minor right lower lobe posterior pleural parenchymal scarring or atelectasis. Calcified granuloma right midlung. Pleural space: Unremarkable. No pneumothorax. No pleural effusion. Heart: Abnormal right to left ventricular ratio 2.0. Calcification distribution of coronary arteries. Lymph nodes: Unremarkable. No enlarged lymph nodes. Liver: Cysts within the liver largest measuring 2.5 cm. Several are too small for definitive characterization. Nodule right adrenal gland measures 1.7 cm. Bones/joints: Numerous areas of sclerosis throughout osseous structures of the spine, ribs, sternum and scapula bilaterally. Soft tissues: Midline upper abdominal wall hernia containing fatty omentum. CT/CT angio chest PE protcl [id number] IMPRESSION: 1. Extensive pulmonary emboli including saddle embolus. 2. Bilateral pulmonary nodules predominantly upper lobe a few of which show cavitation which could be metastatic nodules versus atypical infectious etiology to include fungal or tuberculous etiologies. Fleischner follow up recommendations for incidental nodules are not indicated. Follow up per patient's medical condition. 3. Diffuse skeletal sclerotic metastases. 4. Hepatic cysts several of which are too small for definitive characterization.Recommend further evaluation with liver MRI. 5. Right adrenal gland nodule.Recommend adrenal CT. May consider chemical shift MRI (CS-MR). 6. Focal opacities of lower lungs most suggestive of scarring or atelectasis. Small focal pulmonary infarct at the right lower lobe laterally would be included in the differential. Radiation Dose CTDIVOL = (mGy): DLP = 667.22 (mGy-cm)
[2020-02-21] MEDS: diphenhydrAMINE 50 mg/mL SDV 1mL IVP (03:29)
[2020-02-21] MEDS: hydrocortisone 100 mg/2 mL SDV IVP (03:29)
[2020-02-21 03:38] LABS: Troponin(5th) Baseline 105 ng/L (0-15)
[2020-02-21] MEDS: enoxaparin 100 mg/mL Syringe SUBCUT (03:58)
[2020-02-21 04:02] LABS: INR 0.99 (0.8-1.2)
--- NOTE | 2020-02-21 04:08 | ECG_ITS ---
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 Measurements Intervals [place] Rate: 82 P: 23 [place]: 180 QRS: -2 QRSD: 99 T: -9 QT: 369 QTc: 431 Interpretive Statements SINUS RHYTHM WITH OCCASIONAL SUPRAVENTRICULAR PREMATURE COMPLEXES INCOMPLETE RIGHT BUNDLE BRANCH BLOCK [90+ ms QRS DURATION, TERMINAL R IN V1/V2, 40+ ms S IN I/aVL/V4/V5/V6] NONSPECIFIC ST & T-WAVE ABNORMALITY Compared to ECG 02/21/2020 02:54:17 Incomplete right bundle-branch block now present T-wave abnormality still present Electronically Signed On 02-22-2020 0:07:17 CDT by Eri Charles M.D. [email or web address] Sciencesl[facility].[email or web address]/store/NU/[id number] f
[2020-02-21 05:31] LABS: Troponin 5 2HR 142.7 ng/L (0-15); Troponin 5 2HR Delta 37.7 ABS# (0-10)
[2020-02-21 05:51] LABS: Basophils % 0.2 %; Hematocrit 32.7 % (42.0-52.0); Hemoglobin 10.2 g/dL (11.7-16.6); Lymphocytes # 0.6 10^3/uL (0.8-4.8); Lymphocytes % 7.5 %; Mean Corpuscular HGB Conc 31.2 g/dL (30.0-36.0); Mean Corpuscular Hemoglobin 27.5 pg (28.0-34.0); Mean Corpuscular Volume 88.1 fL (80-94); Mean Platelet Volume 9.6 fL (7.4-10.4); Monocytes # 0.7 10^3/uL (0.2-0.9); Monocytes % 7.8 %; Neutrophils # 7.1 10^3/uL (1.8-7.7); Neutrophils % 83.3 %; Nucleated Red Blood Cells % 0 %; Platelet Count 162 10^3/cmm (130-400); Red Blood Count 3.71 10^6/uL (4.1-5.3); White Blood Count 8.5 10^3/uL (4.0-10.0)
[2020-02-21] MEDS: sodium chloride 0.9% 1,000 ML 999 ML IV (06:14)
== END 2020-02-21 07:22 | disposition other institution (70) ==
PROVIDERS: Emergency Provider Emergency Medicine; PCP Electrodiagnostic Medicine
DX: I26.92 Saddle embolus of pulmonary artery without acute cor pulmonale (principal); E11.9 Type 2 diabetes mellitus without complications; E78.5 Hyperlipidemia, unspecified; Z85.46 Personal history of malignant neoplasm of prostate
CPT/HCPCS: 12345; 71045; 71275; 80053; 83880; 84484; 85025; 85610; 93005; 96361; 96372; 96374; 96375; 99284; 99291; J1200; J1650; J1720; J7030; Q9967

== ENCOUNTER → 2020-07-13 08:43 | Outpatient (BNVA) | payer BC, SELFPAY | PROVIDERS: PCP Electrodiagnostic Medicine; Visit Provider Surgery | DX: Z20.828 Contact with and (suspected) exposure to other viral communicable diseases (principal); Z01.812 Encounter for preprocedural laboratory examination | CPT/HCPCS: 87635 ==

== ENCOUNTER 2020-07-19 05:53 | Day surgery (SDC) | payer BC, SELFPAY ==
[2020-07-18 12:40] VITALS: BMI 37.6
--- NOTE | 2020-07-19 05:45 | ECG_ITS ---
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 Measurements Intervals [place] Rate: 46 P: 38 [place]: 214 QRS: 25 QRSD: 102 T: 29 QT: 505 QTc: 442 Interpretive Statements SINUS BRADYCARDIA WITH FIRST DEGREE AV BLOCK LOW QRS VOLTAGE IN PRECORDIAL LEADS [QRS DEFLECTION < 1.0 mV IN CHEST LEADS] POSSIBLE RIGHT VENTRICULAR CONDUCTION DELAY [RSR (QR) IN V1/V2] PROLONGED QT INTERVAL Compared to ECG 02/21/2020 04:36:07 First degree AV block now present Low QRS voltage now present Prolonged QT interval now present Sinus rhythm no longer present Incomplete right bundle-branch block no longer present T-wave abnormality no longer present Electronically Signed On 07-19-2020 22:05:15 INCIDENT RESPONSE MANAGER by Eri Charles M.D. [id number]
[2020-07-19 06:05] VITALS: BP 115/72; PULSE 48; RESP 18; TEMP 36.3; O2SAT 94
[2020-07-19] MEDS: sodium chloride 0.9% 1,000 ML 30 ML IV (06:24)
[2020-07-19 06:32] LABS: Basophils % 0.9 %; Eosinophils # 0.1 10^3/uL (0.0-0.8); Eosinophils % 2.7 %; Hematocrit 42.4 % (42.0-52.0); Lymphocytes % 21.5 %; Mean Corpuscular HGB Conc 28.3 g/dL (30.0-36.0); Mean Corpuscular Hemoglobin 26.7 pg (28.0-34.0); Mean Corpuscular Volume 94.2 fL (80-94); Mean Platelet Volume 10.9 fL (7.4-10.4); Monocytes # 0.4 10^3/uL (0.2-0.9); Monocytes % 8.9 %; Neutrophils # 2.96 10^3/uL (1.8-7.7); Neutrophils % 65.6 %; Nucleated Red Blood Cells % 0 %; Platelet Count 210 10^3/cmm (130-400); Red Cell Distribution Width 14.4 % (12.1-15.1); White Blood Count 4.5 10^3/uL (4.0-10.0)
--- NOTE | 2020-07-19 06:49 | P.ANESASSM_ITS ---
Pre-Anesthetic Assessment Pre-Anesthetic Assessment: Height/Weight: Height 1.8 m Weight 122.47 kg Temp Pulse Resp BP Pulse Ox 97.3 F L 48 L 18 115/72 94 07/19/20 06:05 07/19/20 06:05 07/19/20 06:05 07/19/20 06:05 07/19/20 06:05 Preop Diagnosis: A flutter Proposed Procedure: Operation Date: 07/19/20 07:00 Proposed Procedures p Umbilical Hernia Repair(Not Applicable) - Kurt Ch MD s Excision left arm lipomams 55724(Left) - Kurt Ch MD Familial anesthetic complications: None Was Beta Jacquelin taken within 24 hours: Yes Last intake: Intake Last Liquid Date 07/18/20 Last Liquid Time 20:00 Last Solid Date 07/18/20 Last Solid Time 20:00 Social: Social History: No alcohol and No tobacco Exam: Pre-Anes Outpt Exam: alert, oriented x 3, clear to auscultation bilaterally and regular rate & rhythm Airway: Cervical ROM: WNL MP: 3 Dentition: Other (missing/poor dentition) Pulmonary: Comments: DVT w/ saddle embolus occuring in january - had embolectomy (etiology thought to be d/t prednisone use in setting of prostate cancer) CV/HEM: CV/HEM: Afib (Cardioverted in [facility] - doing well. 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 DVT (deep venous thrombosis) Hyperlipidemia Metastasis Prostate cancer Pulmonary emboli Social History Smoking and tobacco status: never smoked Data Anesthesia CBC & Chem 7: 07/19/20 06:20 Other Labs: Laboratory Results - last 48 hr 07/19/20 06:20 WBC 4.5 RBC 4.50 Hgb 12.0 Hct 42.4 MCV 94.2 H MCH 26.7 L MCHC 28.3 L RDW 14.4 Plt Count 210 MPV 10.9 H Neut % (Auto) 65.6 Lymph % (Auto) 21.5 [place] % (Auto) 8.9 Eos % (Auto) 2.7 Baso % (Auto) 0.9 Neut # (Auto) 2.96 Lymph # (Auto) 1.0 [place] # (Auto) 0.4 Eos # (Auto) 0.1 Baso # (Auto) 0.0 Nucleated RBC % (auto) 0 Nucleated RBCs # 0.0 Cardiac Studies: No Data to Display
--- NOTE | 2020-07-19 07:10 | W.PM.OPSUD ---
Surgery/Procedure H&P Update DATE OF PROCEDURE: July 19, 2020 DATE H&P PERFORMED: 07/10/20 H&P UPDATE INFORMATION: No changes to prior documentation PREOP DIAGNOSIS: A flutter PLANNED PROCEDURE: Operation Date: 07/19/20 07:00 Proposed Procedures p Umbilical Hernia Repair(Not Applicable) - Kurt Ch MD s Excision left arm lipomams 71221(Left) - Kurt Ch MD
--- NOTE | 2020-07-19 08:30 | P.OP_ITS ---
Operative Report Date of procedure: July 19, 2020 Pre-op Diagnosis: 1. Umbilical hernia.2. Subcutaneous masses of left upper extremity x2. Post-op diagnosis: same Procedure Done: 1. Repair of umbilical hernia. 2. Excision of large lipomatous masses from the left upper extremity x2 with intermediate layered closure of separate 13 cm and 7 cm incisions. Specimens removed/disposition: 1. Lipomatous mass from the left biceps region. 2. Lipomatous mass from the left triceps region. Surgeon: Kurt Ch Anesthesia: MAC Estimated blood loss (mL): 10 Complications: None. Condition: stable Disposition: same day Procedure: The patient was brought to the operating room and was placed in a supine position on the operating room table. A monitored anesthetic was induce d. The periumbilical region and entire left upper extremity were prepped and draped in a sterile fashion. A combination of 1% lidocaine and 0.5% bupivacaine with 1-200,000 parts epinephrine was used for local anesthesia throughout the procedures. Attention was first directed to the abdomen. A curvilinear incision was carried out underneath the umbilicus. Sharp dissection and cautery were used to separate the dependent portion of the umbilical skin from the hernia sac. The herniated contents were then freed from the surrounding subcutaneous tissue down to the fascial defect using cautery. The herniated contents appeared to be comprised of a significant amount of preperitoneal fat, and some of this was excised but the remainder was then reduced through the defect which measured approximately 2 cm in diameter. The defect was closed transversely using multiple inverted interrupted sutures of 0 Prolene. Some [id number] sutures of 0 Vicryl were used to buttress the repair in between the Prolene sutures. The wound was irrigated. The dependent portion of the umbilical skin was brought back down to the fascia with a suture of 0 Vicryl. The skin was reapproximated using a running subcuticular suture of 4-0 Vicryl. Benzoin and Steri-Strips were placed over the incision and a sterile bandage eventually followed. Attention was then directed to the upper aspect of the left upper extremity where the patient had a very large subcutaneous mass overlying the biceps region. A transverse incision was carried out and cautery was used to divide some of the subcutaneous tissue. The mass was quickly encountered and had the typical appearance of a multilobulated lipoma. This was completely and carefully excised from the surrounding subcutaneous tissue using blunt disse ction and cautery to maintain hemostasis. The entire mass measured perhaps 15 cm in greatest diameter. The wound was irrigated with saline. The dermis along the 13 cm incision was then closed using multiple inverted interrupted sutures of 3-0 Vicryl. The skin was reapproximated using a running subcuticular suture of 3-0 Vicryl. Attention was then directed to the left triceps region where the patient had a similar but smaller subcutaneous mass. This time a vertical incision was carried out over the area and cautery was again used to divide the subcutaneous tissue. A fairly well encapsulated lipoma was encountered and was easily removed using blunt dissection. This lesion measured about 6 cm in greatest diameter. The 7 cm incision was then closed in a similar fashion to the other incision, with inverted interrupted sutures in the dermal layer and then a running subcuticular suture of 3-0 Vicryl at the skin level. Benzoin and Steri-Strips were placed over both incisions on the left upper extremity and a sterile circumferential bandage followed. The patient was taken to the recovery area in stable condition postoperatively.
[2020-07-19 08:39] VITALS: BP 90/49; PULSE 50; RESP 18; TEMP 36.2; O2SAT 97
[2020-07-19 09:09] VITALS: BP 101/57; PULSE 47; RESP 18; O2SAT 100
[2020-07-19] MEDS: HYDROcodone-acetaminophen 5-325 mg Tablet 1 TAB PO (09:15)
--- NOTE | 2020-07-19 15:48 | ANE.PACU2 ---
Inpatient post-anesthesia follow up: Airway intact: Yes Vital signs: Temperature 97.1 F Pulse Rate 47 Respiratory Rate 18 Blood Pressure 101/57 Pulse Oximetry 100 Oxygen Delivery Me thod Room Air Oxygen Flow Rate Fraction of Inspir ed Oxygen Hydration adequate: Yes Nausea and vomiting: No Pain level: 1 Mental status: Baseline
== END 2020-07-19 09:27 | disposition home or self-care (01) ==
PROVIDERS: Anesthesiology; PCP Electrodiagnostic Medicine; Visit Provider Surgery
PROC: (CPT 11406; principal; 2020-07-19 07:00)
PROC: (CPT 11406; 2020-07-19 07:00)
DX: K42.9 Umbilical hernia without obstruction or gangrene (principal); D17.22 Benign lipomatous neoplasm of skin and subcutaneous tissue of left arm; M19.90 Unspecified osteoarthritis, unspecified site; I10 Essential (primary) hypertension; C61 Malignant neoplasm of prostate; Z86.718 Personal history of other venous thrombosis and embolism; Z79.01 Long term (current) use of anticoagulants; I48.91 Unspecified atrial fibrillation; E11.9 Type 2 diabetes mellitus without complications
CPT/HCPCS: 11406; 12035; 49585; 12345; 85025; 88304; 88305; 93005; J0690; J2250; J2704; J3010; J3490; J7030

== ENCOUNTER 2020-10-10 09:37 | Outpatient (CLI) | payer BC, SELFPAY ==
[2020-10-10 09:40] VITALS: BP 128/79; PULSE 69; RESP 17; TEMP 35.9; O2SAT 98; BMI 39.0
--- NOTE | 2020-10-10 09:54 | A.OFFVIS_ITS ---
Patient Information Referred by: Dr. Baker Symptom onset date: 10/07/20 COVID 19 common symptoms: positive cough, body aches and nasal congestion Other details: Positive yesterday at PCP office [facility] COVID test results: SARS-CoV-2 RNA (RT-PCR) Not detected (NOT DETECTED) 07/13/20 08:43 07/13/20 Nasal/Oral Coronavirus 2019 PCR See report 01/14/20 15:00 01/14/20 outside results available, scanned Criteria/Plan Inclusion/Exclusion Criteria weight >/= 40kg, + direct test </= 10 days ago and symptom onset </= 10 days ago has diabetes and age >/= 55 and has hypertension not requiring hospitalization, not requiring oxygen (if not chronically on oxygen) and no increase oxygen requirement (if chronically on oxygen) Patient education patient/caregiver received/reviewed fact sheet, Emergency Use Authorization/unapproved drug status discussed with patient/caregiver, alt ernatives to this treatment discussed with patient/caregiver, risks and benefits of medication reviewed with patient/caregiver, patient/caregiver given opportunity for questions, which were answered and patient/caregiver consents to receiving Monoclonal Antibody Treatment Plan for treatment Meets criteria for Monoclonal Antibody infusion Ordering Monoclonal Antibody infusion for today Other information 98 % RA
[2020-10-10 11:04] VITALS: BP 93/59; PULSE 52; RESP 17; TEMP 36.1; O2SAT 96
[2020-10-10 11:58] VITALS: BP 91/55; PULSE 71; RESP 17; TEMP 36.7; O2SAT 98
[2020-10-10 11:59] VITALS: BP 91/55; RESP 18; TEMP 36.7; O2SAT 98
== END 2020-10-10 12:00 | disposition home or self-care (01) ==
LOC: OPS 09:38
PROVIDERS: PCP Electrodiagnostic Medicine; Referring Provider Nurse Practitioner Family; Visit Provider Electrodiagnostic Medicine
DX: U07.1 COVID-19 (principal)

== ENCOUNTER 2021-02-25 22:45 | Emergency (ER) | payer BC, SELFPAY ==
[2021-02-25 23:20] VITALS: BP 113/76; PULSE 52; RESP 18; TEMP 36.4; O2SAT 98; BMI 39.7
--- NOTE | 2021-02-26 00:25 | USCV_ITS ---
Cj Gleason Age: 60 Gender: M : 1960 Exam Date: 02/26/2021 01:24 Ordering Phys: Fernanda Ludwig MD Technologist: Exam [place] [facility] [place]ication: RT LEG EDEMA HISTORY: Lower extremity swelling. PROCEDURES: Venous duplex imaging was performed in only the right lower extremity. The following venous structures were evaluated: common femoral vein, profunda vein, proximal portion of the greater saphenous vein, superficial femoral vein, and the popliteal vein. In addition, the posterior tibial and peroneal trunk were evaluated. FINDINGS: Normal 2-D Doppler and augmentation and compressibility throughout the lower extremity venous structures. Additional imaging through the proximal calf veins also reveals no thrombus. Limited evaluation of the greater saphenous vein is patent with no thrombus.. CONCLUSIONS No evidence of DVT in the above-mentioned identifiable veins. Dr Eri Charles MD [facility] (Electronically Signed) Final Date: 26 February 2021 22:57 S
--- NOTE | 2021-02-26 00:34 | W.ED.EXTPRO ---
HPI - Extremity Problem General: Chief complaint: Extremity Problem,Nontraumatic Stated complaint: possible blood clot Time Seen by Provider: 02/26/21 00:22 Source: patient Mode of arrival: ambulatory Limitations: no limitations History of Present Illness: HPI Narrative: 60-year-old male who has had a history of DVT in the left leg a little over a year ago. He is currently on Eliquis for that. He states that he was playing horseshoes over the weekend has been having some right-sided leg pain since then. He states that he had worsening the pain is starting to concern that he had a another DVT. Denies any worsening improving factors. Denies any difficulty walking. Associated symptoms: Deny chest pain, fever(s) or rash Review of Systems Const: Denies: fever(s), chills, body aches or change in appetite Eyes: Denies: blurry vision or eye discomfort ENMT: Denies: throat pain or dental pain Card: Denies: chest pain Resp: Denies: dyspnea GI: Denies: abdominal pain, nausea, vomiting or diarrhea : Denies: dysuria Musc: Reports: extremity pain; Denies: neck pain or back pain Skin/Breast: Denies: rash Neuro: Denies: headache(s) Psych: Denies: depression Benjamín/Lymph: Denies: easy bruising All/Imm: Denies: urticaria PFSH ED PFSH: Medical History (Updated 02/26/21 @ 01:41 by Fernanda Ludwig MD) Atrial fibrillation Chronic steroid use 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 DVT (deep venous thrombosis) Hyperlipidemia Metastasis Prostate cancer Pulmonary emboli Social History Smoking and tobacco status: never smoked Physical Exam Const: COMMON NORMALS: no acute distress, patient oriented x3 and healthy appearing HENMT: COMMON NORMALS: normocephalic and atraumatic HEAD & SCALP: normocephalic and atraumatic Eye: COMMON NORMALS: Equal, round and reactive pupils present and EOMs intact bilaterally PUPIL: Yes Equal, round and reactive pupils present Neck/C-Spine: COMMON NORMALS: full ROM and supple Chest: COMMONS NORMALS: normal inspection of the chest and normal palpation of entire chest wall Resp: COMMON NORMALS: normal respiratory effort, No retractions, No use of accessory muscles and clear to auscultation bilaterally AUSCULTATION: clear to auscultation bilaterally Cardio: COMMON NORMALS: regular rate, regular rhythm and No murmurs present (Cardio) RATE: regular rate RHYTHM: regular rhythm GI: COMMON NORMALS: Normal to inspection, nondistended, normoactive bowel sounds present, Soft to palpation, non-tender and no masses PALPATION: Yes Soft to palpation Extremity: COMMON NORMALS: normal to inspection and full ROM NARRATIVE EXTREMITY EXAM: No swelling or tenderness noted to right lower extremities distal pulses intact Neuro: COMMON NORMALS: patient oriented x3, moves all extremities and no focal motor deficits Psych: COMMON NORMALS: mental status grossly normal, Normal thought process present and cooperative THOUGHT PROCESS: Normal thought process present Skin: COMMON NORMALS: no rashes or lesions noted and no wounds GENERAL SKIN EXAM: no rashes or lesions noted Course Vital Signs: Vital signs: Vital Signs Temperature 97.6 F 02/25/21 23:20 Pulse Rate 78 02/26/21 01:33 Respiratory Rate 16 02/26/21 01:33 Blood Pressure 140/78 02/26/21 01:33 Pulse Oximetry 96 02/26/21 01:33 MDM - Extremity (Nontraumatic) MDM Narrative: Medical decision making narrative: Cj presents here with right leg pain is likely a leg strain. He is pain-free and has no signs of cellulitis. Ultrasound showed no signs of DVT. He has good pulses distally. He is stable for discharge is to follow-up with PCP and return if worsening. Lab Data: Labs: Lab Results 02/26/21 Range/Units 01:10 PT 13.10 (12.1-14.9) SECO NDS INR 0.96 (0.8-1.2) Imaging Data^: US Vascular: Attestation: I personally reviewed and interpreted this imaging study as follows: My impression: no dvt Discharge Plan Discharge Patient Disposition: Home Clinical Impression: Pain in right leg Condition: Stable Prescriptions: No Action furosemide 40 mg tablet 40 mg PO DAILY RF: 0 Eliquis 5 mg tablet 5 mg PO BID RF: 0 lactobacillus combination no.8 3 tab PO DAILY RF: 0 amiodarone 200 mg tablet See Rx Instructions .ROUTE .COMPLEX Qty: 90 RF: 3 multivitamin [Multiple Vitamins] Tablet 1 tab PO DAILY RF: 0 hydrocodone-acetaminophen 5-325 mg tablet 1 tab PO Q6H PRN (Reason: Pain) RF: 0 tamsulosin 0.4 mg capsule 0.4 mg PO BID RF: 0 metoprolol tartrate 25 mg Tablet 25 mg PO Q12H Qty: 60 RF: 0 prednisone 5 mg tablet 5 mg PO BID RF: 0 pantoprazole 40 mg tablet,delayed release (DR/EC) 40 mg PO DAILY RF: 0 doxycycline hyclate 100 mg Tablet 100 mg PO BID RF: 0 Discharge Orders: Discharge ED (Routine); Ordered 02/26/21 Ordered By: Fernanda Ludwig Referrals: Jay Baker DO [Primary Care Provider] - 1-3 days Discharge Diet: Advance as tolerated Discharge Activity: Resume usual activity Patient Instructions: Knee Pain (ED) Coding Level of Care Code ED Tool And Die Maker/Designer for Garrett Fwd Exam Comprehensive
[2021-02-26 00:40] VITALS: BP 120/72; PULSE 53; RESP 18; O2SAT 98
[2021-02-26 00:41] VITALS: PULSE 52
[2021-02-26 01:33] VITALS: BP 140/78; PULSE 78; RESP 16; O2SAT 96
[2021-02-26 01:33] LABS: INR 0.96 (0.8-1.2)
[2021-02-26 02:00] VITALS: BP 140/78; PULSE 66; RESP 18; O2SAT 97
== END 2021-02-26 02:02 | disposition home or self-care (01) ==
PROVIDERS: Emergency Provider Emergency Medicine; PCP Electrodiagnostic Medicine
DX: M79.604 Pain in right leg (principal); Z79.01 Long term (current) use of anticoagulants; E11.9 Type 2 diabetes mellitus without complications; E78.5 Hyperlipidemia, unspecified; Z85.46 Personal history of malignant neoplasm of prostate; Z86.711 Personal history of pulmonary embolism
CPT/HCPCS: 36415; 85610; 93971; 99283

== ENCOUNTER 2021-04-04 12:56 | Emergency (ER) | payer BC, SELFPAY ==
[2021-04-04 13:04] VITALS: BP 148/84; PULSE 90; RESP 18; TEMP 36.4; O2SAT 99; BMI 39.7
--- NOTE | 2021-04-04 13:11 | XRR_ITS ---
PROCEDURE INFORMATION: Exam: XR Chest Exam date and time: 04/04/2021 1:11 PM Age: 60 years old Clinical indication: Cough and dyspnea; Additional info: Dyspnea/cough TECHNIQUE: Imaging protocol: XR of the chest. Views: 1 view. COMPARISON: CR XR chest 1V portable [id number] 02/21/2020 2:11 AM FINDINGS: Lungs: Unremarkable. No consolidation. Pleural spaces: Unremarkable. No pleural effusion. No pneumothorax. Heart/Mediastinum: Unremarkable. No cardiomegaly. Bones/joints: Unremarkable. XR/XR chest 1V portable [id number] IMPRESSION: No acute findings.
--- NOTE | 2021-04-04 13:11 | ECG_ITS ---
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 Measurements Intervals [place] Rate: 63 P: 40 [place]: 212 QRS: 37 QRSD: 97 T: 47 QT: 422 QTc: 435 Interpretive Statements SINUS RHYTHM WITH FIRST DEGREE AV BLOCK LOW QRS VOLTAGE IN PRECORDIAL LEADS [QRS DEFLECTION < 1.0 mV IN CHEST LEADS] INCOMPLETE RIGHT BUNDLE BRANCH BLOCK [90+ ms QRS DURATION, TERMINAL R IN V1/V2, 40+ ms S IN I/aVL/V4/V5/V6] Compared to ECG 07/19/2020 06:39:53 Incomplete right bundle-branch block now present Sinus bradycardia no longer present Prolonged QT interval no longer present Electronically Signed On 04-04-2021 23:03:57 CDT by Jimy Ahmadi M.D. [id number] cody
--- NOTE | 2021-04-04 13:19 | ED_ITS ---
HPI - Allergic Reaction General: Chief complaint: Allergic Reaction Stated complaint: CP - BACK CALLED Time Seen by Provider: 04/04/21 13:08 History of Present Illness: HPI narrative: 60-year-old male presents emergency room with complaint of chest pain. Earlier today started having chest pain a sensation of itching and throat swelling in his throat that preceded it. He took 20 mg of liquid Benadryl. He is extremely anxious on arrival here. He is no longer having any chest discomfort. He is not having difficulty breathing at this time. He was at rest when this began. Onset (ago): minute(s) Exposure: unknown Associated symptoms: Reports itching; Deny abdominal pain, difficulty breathing, dysphagia, dizziness, facial swelling, hoarseness, lip swelling, nausea, rash, tongue swelling or vomiting Severity: mild Treatment prior to arrival: benadryl Previous Allergic Reaction History: none Review of Systems Const: Denies: fever(s), chills, body aches, change in appetite, fatigue or malaise ENMT: Denies: hoarseness Card: Denies: chest pain, edema, dyspnea on exertion or orthopnea Resp: Denies: dyspnea, productive cough or non-productive cough GI: Denies: abdominal pain, nausea, vomiting or dysphagia : Denies: flank pain, dysuria, urinary frequency or urinary urgency Skin/Breast: Denies: rash or pruritus Neuro: Denies: dizziness All/Imm: Denies: tongue swelling or facial swelling [facility] ED PFSH: Medical History (Updated 04/04/21 @ 15:33 by Cameron Plummer DO) Atrial fibrillation Chronic steroid use 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 DVT (deep venous thrombosis) Hyperlipidemia Metastasis Prostate cancer Pulmonary emboli Social History Smoking and tobacco status: never smoked Alcohol intake: never Physical Exam Const: COMMON NORMALS: no acute distress GENERAL APPEARANCE: cooperative and comfortable ORIENTATION/CONSCIOUSNESS: Yes awake, Yes oriented to person, Yes oriented to place and Yes oriented to time HENMT: COMMON NORMALS: normocephalic, atraumatic and hearing grossly normal bilaterally HEAD & SCALP: normocephalic and atraumatic Neck/C-Spine: COMMON NORMALS: full ROM, no lymphadenopathy, supple and no JVD OTHER: No stridor Resp: COMMON NORMALS: normal respiratory effort, No retractions, No use of accessory muscles and clear to auscultation bilaterally AUSCULTATION: clear to auscultation bilaterally Cardio: COMMON NORMALS: no JVD, regular rate, regular rhythm and No murmurs present (Cardio) RATE: regular rate RHYTHM: regular rhythm GI: COMMON NORMALS: Soft to palpation and No hepatosplenomegaly present AUSCULTATION: Yes normoactive bowel sounds PALPATION: Yes Soft to palpation, No Tenderness to palpation present (GI), No Guarding due to palpation present (GI) and Yes No hepatosplenomegaly present Extremity: COMMON NORMALS: normal to inspection, capillary refill normal, no clubbing, cyanosis or edema, no calf tenderness and no pedal edema Neuro: SENSORIUM/ORIENTATION: Yes oriented to person, Yes oriented to place and Yes oriented to time Skin: COMMON NORMALS: no rashes or lesions noted GENERAL SKIN EXAM: no rashes or lesions noted Course Vital Signs: Vital signs: Vital Signs Temperature 98.4 F 04/04/21 16:37 Pulse Rate 65 04/04/21 16:37 Respiratory Rate 19 H 04/04/21 16:37 Blood Pressure 132/78 04/04/21 16:37 Pulse Oximetry 97 04/04/21 16:37 MDM - Allergic Reaction MDM Narrative: Medical decision making narrative: No stridor on exam no wheezes no rhonchi no evidence of rash. Patient observed for a time he is feeling better we reviewed different particular causes we will have him just watch him pull-through use a course of prednisone was given hydroxyzine to use as needed if he has further problems return Lab Data: Labs: Lab Results 04/04/21 04/04/21 04/04/21 Range/Units 13:30 13:30 13:30 WBC 5.5 (4.0-10.0) 10^3/ uL RBC 4.39 (4.1-5.3) 10^6/u L Hgb 12.3 (11.7-16.6) g/dL Hct 39.0 L (42.0-52.0) % MCV 88.8 (80-94) fL MCH 28.0 (28.0-34.0) pg MCHC 31.5 (30.0-36.0) g/dL RDW 13.4 (12.1-15.1) % Plt Count 238 (130-400) 10^3/c mm MPV 10.6 H (7.4-10.4) fL Neut % (Auto) 80.7 % Lymph % (Auto) 10.0 % [place] % (Auto) 8.3 % Eos % (Auto) 0.4 % Baso % (Auto) 0.4 % Neut # (Auto) 4.46 (1.8-7.7) 10^3/u L Lymph # (Auto) 0.6 L (0.8-4.8) 10^3/u L [place] # (Auto) 0.5 (0.2-0.9) 10^3/u L Eos # (Auto) 0.0 (0.0-0.8) 10^3/u L Baso # (Auto) 0.0 (0.0-0.1) 10^3/u L Nucleated RBC % (a uto) 0 % Nucleated RBCs # 0.0 /100WBC Sodium 138 (136-145) mmol/L Potassium 4.3 (3.5-5.1) mmol/L Chloride 101 (98-107) mmol/L Carbon Dioxide 25 (22-29) mmol/L Anion Gap 16.3 (5-19) BUN 25 H (8-23) mg/dL Creatinine 1.3 H (0.7-1.2) mg/dL GFR Calculation 56.1 L (90-130) mL/min Glucose 103 (65-115) mg/dL Calculated Osmolal ity 291 (285-295) mOsm/k g Calcium 8.2 L (8.5-10.5) mg/dL Total Bilirubin 0.3 (0.15-1.2) mg/dL AST 16 (0-40) U/L ALT 13 (0-41) U/L Alkaline Phosphata se 153 H (40-130) IU/L Troponin T Baselin e 19 H (0-15) ng/L Troponin T 120 Min [place] (0-15) ng/L Delta Troponin T (0-10) ABS# Total Protein 5.1 L (6.6-8.7) g/dL Albumin 3.6 (3.5-5.2) g/dL Globulin 1.5 (1.3-4.6) g/dL 08/05/21 Range/Units 15:44 WBC (4.0-10.0) 10^3/ uL RBC (4.1-5.3) 10^6/u L Hgb (11.7-16.6) g/dL Hct (42.0-52.0) % MCV (80-94) fL MCH (28.0-34.0) pg MCHC (30.0-36.0) g/dL RDW (12.1-15.1) % Plt Count (130-400) 10^3/c mm MPV (7.4-10.4) fL Neut % (Auto) % Lymph % (Auto) % [place] % (Auto) % Eos % (Auto) % Baso % (Auto) % Neut # (Auto) (1.8-7.7) 10^3/u L Lymph # (Auto) (0.8-4.8) 10^3/u L [place] # (Auto) (0.2-0.9) 10^3/u L Eos # (Auto) (0.0-0.8) 10^3/u L Baso # (Auto) (0.0-0.1) 10^3/u L Nucleated RBC % (a uto) % Nucleated RBCs # /100WBC Sodium (136-145) mmol/L Potassium (3.5-5.1) mmol/L Chloride (98-107) mmol/L Carbon Dioxide (22-29) mmol/L Anion Gap (5-19) BUN (8-23) mg/dL Creatinine (0.7-1.2) mg/dL GFR Calculation (90-130) mL/min Glucose (65-115) mg/dL Calculated Osmolal ity (285-295) mOsm/k g Calcium (8.5-10.5) mg/dL Total Bilirubin (0.15-1.2) mg/dL AST (0-40) U/L ALT (0-41) U/L Alkaline Phosphata se (40-130) IU/L Troponin T Baselin e (0-15) ng/L Troponin T 120 Min [place] & [place] 14.15 (0-15) ng/L Delta Troponin T -4.85 L (0-10) ABS# Total Protein (6.6-8.7) g/dL Albumin (3.5-5.2) g/dL Globulin (1.3-4.6) g/dL Discharge Plan Discharge Patient Disposition: Home Clinical Impression: Allergic reaction Condition: Stable Prescriptions: New hydroxyzine HCl 25 mg tablet 25 mg PO TID PRN (Reason: itching) Qty: 14 RF: 0 prednisone 20 mg tablet 20 mg PO BID 5 Days Qty: 10 RF: 0 Held prednisone 5 mg tablet 5 mg PO BID RF: 0 Hold Instructions: Resume on 04/10/21. No Action furosemide 40 mg tablet 40 mg PO DAILY RF: 0 Eliquis 5 mg tablet 5 mg PO BID RF: 0 lactobacillus combination no.8 3 tab PO DAILY RF: 0 multivitamin [Multiple Vitamins] Tablet 1 tab PO DAILY RF: 0 hydrocodone-acetaminophen 5-325 mg tablet 1 tab PO Q6H PRN (Reason: Pain) RF: 0 tamsulosin 0.4 mg capsule 0.4 mg PO BID RF: 0 pantoprazole 40 mg tablet,delayed release (DR/EC) 40 mg PO DAILY RF: 0 Benadryl 25 mg Capsule 25 mg PO QID PRN (Reason: ALLERGY SYMPTOMS/SWELLING) RF: 0 amiodarone 200 mg tablet 200 mg PO DAILY RF: 0 Discharge Orders: Discharge ED (Routine); Ordered 04/04/21 Ordered By: Cameron Plummer Referrals: Jay Baker DO [Primary Care Provider] - Patient Instructions: Opioid Safety Activity Restrictions/Additional Instructions: Follow-up with your primary care doctor within the next 5 days. Return if you have further problems. Coding Level of Care Code ED Topographical Field Assistant for Chg Fwd Exam Comprehensive
[2021-04-04 13:40] LABS: Basophils % 0.4 %; Eosinophils % 0.4 %; Hemoglobin 12.3 g/dL (11.7-16.6); Lymphocytes # 0.6 10^3/uL (0.8-4.8); Mean Corpuscular HGB Conc 31.5 g/dL (30.0-36.0); Mean Corpuscular Volume 88.8 fL (80-94); Mean Platelet Volume 10.6 fL (7.4-10.4); Monocytes # 0.5 10^3/uL (0.2-0.9); Monocytes % 8.3 %; Neutrophils # 4.46 10^3/uL (1.8-7.7); Neutrophils % 80.7 %; Nucleated Red Blood Cells % 0 %; Platelet Count 238 10^3/cmm (130-400); Red Blood Count 4.39 10^6/uL (4.1-5.3); Red Cell Distribution Width 13.4 % (12.1-15.1); White Blood Count 5.5 10^3/uL (4.0-10.0)
[2021-04-04 13:50] VITALS: BP 159/110; PULSE 63; RESP 15; O2SAT 99
[2021-04-04 14:02] LABS: Alanine Aminotransferase 13 U/L (0-41); Albumin Level 3.6 g/dL (3.5-5.2); Alkaline Phosphatase 153 IU/L (40-130); Aspartate Amino Transferase 16 U/L (0-40); Blood Urea Nitrogen 25 mg/dL (8-23); Calcium 8.2 mg/dL (8.5-10.5); Carbon Dioxide 25 mmol/L (22-29); Chloride 101 mmol/L (98-107); Globulin 1.5 g/dL (1.3-4.6); Glomerular Filtration Rate 56.1 mL/min (90-130); Glucose 103 mg/dL (65-115); Osmolality Calculated 291 mOsm/kg (285-295); Sodium 138 mmol/L (136-145); Total Bilirubin 0.3 mg/dL (0.15-1.2); Total Protein 5.1 g/dL (6.6-8.7)
[2021-04-04 14:06] LABS: Troponin(5th) Baseline 19 ng/L (0-15)
[2021-04-04 14:33] LABS: Anion Gap 16.3 (5-19)
[2021-04-04 14:35] LABS: Potassium 4.3 mmol/L (3.5-5.1)
--- NOTE | 2021-04-04 15:11 | ECG_ITS ---
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 Measurements Intervals [place] Rate: 67 P: 23 CO: 214 QRS: 12 QRSD: 107 T: 26 QT: 441 QTc: 469 Interpretive Statements SINUS RHYTHM WITH FIRST DEGREE AV BLOCK LOW QRS VOLTAGE IN PRECORDIAL LEADS [QRS DEFLECTION < 1.0 mV IN CHEST LEADS] INCOMPLETE RIGHT BUNDLE BRANCH BLOCK [90+ ms QRS DURATION, TERMINAL R IN V1/V2, 40+ ms S IN I/aVL/V4/V5/V6] Compared to ECG 07/19/2020 06:39:53 Incomplete right bundle-branch block now present Sinus bradycardia no longer present Prolonged QT interval no longer present Electronically Signed On 04-05-2021 16:48:06 CDT by Gabriella Huynh M.D. [id number]
[2021-04-04 16:37] VITALS: BP 132/78; PULSE 65; RESP 19; TEMP 36.9; O2SAT 97
[2021-04-04 16:45] LABS: Troponin 5 2HR 14.15 ng/L (0-15)
[2021-04-04 16:58] LABS: Troponin 5 2HR Delta -4.85 ABS# (0-10)
== END 2021-04-04 17:00 | disposition home or self-care (01) ==
PROVIDERS: Emergency Provider Family Medicine; PCP Electrodiagnostic Medicine
DX: T78.40XA Allergy, unspecified, initial encounter (principal); Z79.01 Long term (current) use of anticoagulants; E11.9 Type 2 diabetes mellitus without complications; E78.5 Hyperlipidemia, unspecified; Z85.46 Personal history of malignant neoplasm of prostate; Z86.711 Personal history of pulmonary embolism
CPT/HCPCS: 71045; 80053; 84484; 85025; 93005; 99283

== ENCOUNTER 2021-07-17 09:37 | Outpatient (CLI) | payer BC, SELFPAY ==
--- NOTE | 2021-07-17 09:49 | XR_ITS ---
WS: [id number] Exam: XR chest 2V* [id number] Date/Time of Exam: 07/17/2021 9:49 AM Reason For Exam: ACUTE BRONCHITIS Comparison 04/04/2021. The lungs are fully expanded and clear. Mild plaque atelectasis in the right base. Normal cardiomedia stinal silhouette. Bony structures are intact. No pleural effusion. XR/XR chest 2V* [id number] IMPRESSION: 1. No acute cardiopulmonary finding. No change.
== END 2021-07-17 09:38 | disposition home or self-care (01) ==
PROVIDERS: PCP Electrodiagnostic Medicine; Visit Provider Electrodiagnostic Medicine
DX: J20.9 Acute bronchitis, unspecified (principal)
CPT/HCPCS: 71046

== ENCOUNTER 2021-09-24 08:57 | Emergency (ER) | payer BC, SELFPAY ==
[2021-09-24 09:04] VITALS: BP 95/59; PULSE 79; RESP 18; TEMP 36.5; O2SAT 96; BMI 42.5
--- NOTE | 2021-09-24 09:22 | ED_ITS ---
HPI - Syncope General: Chief Complaint: Syncope Stated Complaint: LOW BLOOD PRESSURE Time Seen by Provider: 09/24/21 08:59 History of Present Illness: HPI narrative: 61-year-old male presents emergency room with complaint of dizziness and short of breath. Patient has a history of congestive heart failure also has a history of prostate cancer. He recently was enrolled in a study for mobility with he has stopped that since and is been restarted on traditional chemotherapy through his oncologist at [facility]. Comes in today complaining of increased fluid retention near syncopal episode hypotension at home. He denies any chest pain. He has had an productive cough of whitish sputum for the last approximately 2 weeks. No fever. No chest pain short of breath with exertion. MD complaint: almost passed out Onset (ago): week(s) (2) Prodromal symptoms: lightheaded Context: during exertion Injuries sustained associated with event: none Associated symptoms: Reports abdominal pain; Deny chest pain, fever(s), headache(s), lightheadedness, nausea, short of breath, vertigo or weakness Treatments prior to arrival: none Review of Systems Const: Denies: fever(s) ENMT: Denies: throat pain, ear or mastoid pain, nasal discharge or nasal congestion Card: Denies: chest pain or lightheadedness Resp: Denies: dyspnea, productive cough or non-productive cough GI: Reports: abdominal pain; Denies: nausea : Denies: flank pain, dysuria, urinary frequency or urinary urgency Skin/Breast: Denies: rash or pruritus Neuro: Denies: headache(s) or vertigo [facility] ED PFSH: Medical History (Updated 09/24/21 @ 13:22 by Cameron Plummer DO) Atrial fibrillation Chronic steroid use 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 DVT (deep venous thrombosis) Hyperlipidemia Metastasis Prostate cancer Pulmonary emboli Social History Alcohol intake: never Physical Exam Const: COMMON NORMALS: no acute distress GENERAL APPEARANCE: cooperative and comfortable ORIENTATION/CONSCIOUSNESS: Yes awake, Yes oriented to person, Yes oriented to place and Yes oriented to time HENMT: COMMON NORMALS: normocephalic, atraumatic and hearing grossly normal bilaterally HEAD & SCALP: normocephalic and atraumatic Resp: COMMON NORMALS: normal respiratory effort, No retractions, No use of accessory muscles and clear to auscultation bilaterally AUSCULTATION: clear to auscultation bilaterally Cardio: COMMON NORMALS: regular rate, regular rhythm and No murmurs present (Cardio) RATE: regular rate RHYTHM: regular rhythm GI: COMMON NORMALS: Soft to palpation and No hepatosplenomegaly present AUSCULTATION: Yes normoactive bowel sounds PALPATION: Yes Soft to palpation, No Tenderness to palpation present (GI), No Guarding due to palpation present (GI) and Yes No hepatosplenomegaly present RECTAL EXAM: Yes normal sphincter tone and Yes heme negative stool Extremity: COMMON NORMALS: normal to inspection, capillary refill normal and no calf tenderness GENERAL: Yes edema (1+ edema lower extremities) Neuro: SENSORIUM/ORIENTATION: Yes oriented to person, Yes oriented to place and Yes oriented to time Skin: COMMON NORMALS: no rashes or lesions noted GENERAL SKIN EXAM: no rashes or lesions noted Course Vital Signs: Vital signs: Vital Signs Temperature 97.7 F 09/24/21 09:04 Pulse Rate 79 09/24/21 14:14 Respiratory Rate 17 09/24/21 11:57 Blood Pressure 135/72 09/24/21 14:14 Pulse Oximetry 98 09/24/21 14:14 MDM - Syncope MDM Narrative Medical decision making narrative: Hemoglobin is low 8.2. We called over to his primary care doc's office they did have 09/05/2019 his is able to get up on the patient portal he was 9.4 a jameel le over a month ago. They have been tracking it because some of the medication he takes causes marrow suppression evidently he is not have any active bleeding from the rectum and his Hemoccult here was negative we can discharge him home and have a follow-up hemoglobin tomorrow he is feeling much better and blood pressure is improved. Lab Data Result diagrams: 09/24/21 09:38 09/24/21 09:38 Labs: Radiology Impressions Chest X-Ray 09/24/21 09:23 IMPRESSION: Unremarkable portable chest. Laboratory Results WBC 2.6 10^3/uL (4.0-10.0) L 09/24/21 09:38 RBC 2.90 10^6/uL (4.1-5.3) L 09/24/21 09:38 Hgb 8.2 g/dL (11.7-16.6) L 09/24/21 09:38 Hct 25.6 % (42.0-52.0) L 09/24/21 09:38 MCV 88.3 fl (80-94) 09/24/21 09:38 MCH 28.3 pg (28.0-34.0) 09/24/21 09:38 MCHC 32.0 g/dL (30.0-36.0) 09/24/21 09:38 RDW 18.7 % (12.1-15.1) H 09/24/21 09:38 Plt Count 228 10^3/cmm (130-400) 09/24/21 09:38 MPV 9.7 fL (7.4-10.4) 09/24/21 09:38 Neut % (Auto) 69.1 % 09/24/21 09:38 Lymph % (Auto) 15.6 % 09/24/21 09:38 [place] % (Auto) 13.7 % 09/24/21 09:38 Eos % (Auto) 0.8 % 09/24/21 09:38 Baso % (Auto) 0.4 % 09/24/21 09:38 Neut # (Auto) 1.77 10^3/uL (1.8-7.7) L 09/24/21 09:38 Lymph # (Auto) 0.4 10^3/uL (0.8-4.8) L 09/24/21 09:38 [place] # (Auto) 0.4 10^3/uL (0.2-0.9) 09/24/21 09:38 Eos # (Auto) 0.0 10^3/uL (0.0-0.8) 09/24/21 09:38 Baso # (Auto) 0.0 10^3/uL (0.0-0.1) 09/24/21 09:38 Nucleated RBC % (auto) 0 % 09/24/21 09: Nucleated RBCs # 0.0 /100WBC 09/24/21 09:38 Sodium 138 mmol/L (136-145) 09/24/21 09:38 Potassium 3.8 mmol/L (3.5-5.1) 09/24/21 09:38 Chloride 104 mmol/L (98-107) 09/24/21 09:38 Carbon Dioxide 22 mmol/L (22-29) 09/24/21 09:38 Anion Gap 15.8 (5-19) 09/24/21 09:38 BUN 13 mg/dL (8-23) 09/24/21 09:38 Creatinine 1.2 mg/dL (0.7-1.2) 09/24/21 09:38 GFR Calculation 61.3 mL/min (90-130) L 09/24/21 09:38 Glucose 100 mg/dL (65-115) 09/24/21 09:38 Calculated Osmolality 286 mOsm/kg (285-295) 09/24/21 09:38 Calcium 7.7 mg/dL (8.5-10.5) L 09/24/21 09:38 Total Bilirubin 0.4 mg/dL (0.15-1.2) 09/24/21 09:38 AST 14 U/L (0-40) 09/24/21 09:38 ALT 7 U/L (0-41) 09/24/21 09:38 Alkaline Phosphatase 249 IU/L (40-130) H 09/24/21 09:38 Troponin T Baseline 19 ng/L (0-15) H 09/24/21 09:38 Troponin T 120 Minute 17.44 ng/L (0-15) H 09/24/21 11:48 Delta Troponin T -1.56 ABS# (0-10) L 09/24/21 11:48 NT-Pro-B Natriuret Pep 594 pg/mL (0-125) H 09/24/21 09:38 Total Protein 4.8 g/dL (6.6-8.7) L 09/24/21 09:38 Albumin 3.3 g/dL (3.5-5.2) L 09/24/21 09:38 Globulin 1.5 g/dL (1.3-4.6) 09/24/21 09:38 Urine Color Yellow (Yellow) 09/24/21 10:34 Urine Appearance Clear (CLEAR) 09/24/21 10:34 Urine pH 5 (5-7) 09/24/21 10:34 Ur Specific [place] 1.015 (1.005-1.030) 09/24/21 10:34 Urine Protein Neg (Negative) 09/24/21 10:34 Urine Glucose (UA) Norm (Normal) 09/24/21 10:34 Urine Ketones Negative (Negative) 09/24/21 10:34 Urine Blood Neg (Negative) 09/24/21 10:34 Urine Nitrate Negative (Negative) 09/24/21 10:34 Urine Bilirubin Neg (Negative) 09/24/21 10:34 Urine Urobilinogen Norm mg/dL (Negative) 09/24/21 10:34 Ur Leukocyte Esterase Negative (Negative) 09/24/21 10:34 Discharge Plan Discharge Patient Disposition: Home Clinical Impression: Near syncope, Anemia Condition: Stable Prescriptions: No Action furosemide 40 mg tablet 40 mg PO DAILY 0RF lactobacillus combination no.8 3 tab PO DAILY 0RF lorazepam 0.5 mg tablet 0.5 mg PO BID PRN0RF Lynparza 150 mg tablet 300 mg PO BID 0RF Eliquis 5 mg tablet 5 mg PO BID Qty: 60 6RF amiodarone 200 mg tablet 200 mg PO DAILY Qty: 90 2RF multivitamin [Multiple Vitamins] Tablet 1 tab PO DAILY 0RF hydrocodone-acetaminophen 5-325 mg tablet 1 tab PO Q6H PRN (Reason: Pain) 0RF tamsulosin 0.4 mg capsule 0.4 mg PO BID 0RF pantoprazole 40 mg tablet,delayed release (DR/EC) 40 mg PO DAILY 0RF Benadryl 25 mg Capsule 25 mg PO QID PRN (Reason: ALLERGY SYMPTOMS/SWELLING) 0RF hydroxyzine HCl 25 mg tablet 25 mg PO TID PRN (Reason: itching) Qty: 14 0RF Discharge Orders: Discharge ED (Routine); Ordered 09/24/21 Ordered By: Cameron Plummer Referrals: Jay Baker DO [Primary Care Provider] - Discharge Diet: Usual diet Discharge Activity: Limit activity as instructed Patient Instructions: Opioid Safety Activity Restrictions/Additional Instructions: Recheck hemoglobin with your primary care doctor tomorrow. Coding Level of Care Code ED Reeling Operator for Chg Fwd Exam Detailed
[2021-09-24 09:23] VITALS: BP 86/57; PULSE 97; RESP 16; O2SAT 94
--- NOTE | 2021-09-24 09:23 | ECG_ITS ---
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 Measurements Intervals [place] Rate: 72 P: NE: QRS: 29 QRSD: 100 T: 31 QT: 427 QTc: 470 Interpretive Statements SINUS RHYTHM WITH FIRST DEGREE AV BLOCK with PAC'S LOW QRS VOLTAGE IN PRECORDIAL LEADS [QRS DEFLECTION < 1.0 mV IN CHEST LEADS] INCOMPLETE RIGHT BUNDLE BRANCH BLOCK Compared to ECG 04/04/2021 15:22:47 No significant change Electronically Signed On 09-24-2021 21:56:37 IT SPECIALIST by Gabriella Huynh M.D. [id number]
--- NOTE | 2021-09-24 09:23 | XR_ITS ---
WS: [id number] PORTABLE CHEST HISTORY: dyspnea/cough COMPARISON: 07/17/2021 Lungs are clear and well expanded. No pleural effusion or pneumothorax. Cardiac size: Normal. Mediastinum/Aorta: Normal mediastinum. No osseous abnormality seen. XR/XR chest 1V portable [id number] IMPRESSION: Unremarkable portable chest.
[2021-09-24 09:26] VITALS: BP 86/57; PULSE 84; RESP 18; O2SAT 95
[2021-09-24 09:41] VITALS: BP 101/58; PULSE 124; RESP 16; O2SAT 99
[2021-09-24 10:28] LABS: Basophils % 0.4 %; Eosinophils % 0.8 %; Hematocrit 25.6 % (42.0-52.0); Hemoglobin 8.2 g/dL (11.7-16.6); Lymphocytes # 0.4 10^3/uL (0.8-4.8); Lymphocytes % 15.6 %; Mean Corpuscular Hemoglobin 28.3 pg (28.0-34.0); Mean Corpuscular Volume 88.3 fl (80-94); Mean Platelet Volume 9.7 fL (7.4-10.4); Monocytes # 0.4 10^3/uL (0.2-0.9); Monocytes % 13.7 %; Neutrophils # 1.77 10^3/uL (1.8-7.7); Neutrophils % 69.1 %; Nucleated Red Blood Cells % 0 %; Platelet Count 228 10^3/cmm (130-400); Red Cell Distribution Width 18.7 % (12.1-15.1); White Blood Count 2.6 10^3/uL (4.0-10.0)
[2021-09-24 10:47] LABS: Add Urine Microscopic? NO; Charge for UA Resulting for Rev
[2021-09-24 10:53] LABS: Troponin(5th) Baseline 19 ng/L (0-15)
[2021-09-24 10:55] LABS: Bilirubin Urine Neg (Negative); Blood Urine Neg (Negative); Glucose Urine UA Norm (Normal); Ketones Urine Negative (Negative); Leukocyte Esterase Urine Negative (Negative); Nitrate Urine Negative (Negative); Protein Urine Neg (Negative); Specific Gravity, Urine 1.015 (1.005-1.030); Urine Appearance Clear (CLEAR); Urine Color Yellow (Yellow); Urobilinogen Urine Norm (Negative); pH Urine 5 (5-7)
[2021-09-24 11:02] LABS: Alanine Aminotransferase 7 U/L (0-41); Albumin Level 3.3 g/dL (3.5-5.2); Alkaline Phosphatase 249 IU/L (40-130); Anion Gap 15.8 (5-19); Aspartate Amino Transferase 14 U/L (0-40); Blood Urea Nitrogen 13 mg/dL (8-23); Calcium 7.7 mg/dL (8.5-10.5); Carbon Dioxide 22 mmol/L (22-29); Chloride 104 mmol/L (98-107); Globulin 1.5 g/dL (1.3-4.6); Glomerular Filtration Rate 61.3 mL/min (90-130); Glucose 100 mg/dL (65-115); NT Pro B Type Natriuretic Pept 594 pg/mL (0-125); Osmolality Calculated 286 mOsm/kg (285-295); Potassium 3.8 mmol/L (3.5-5.1); Sodium 138 mmol/L (136-145); Total Bilirubin 0.4 mg/dL (0.15-1.2); Total Protein 4.8 g/dL (6.6-8.7)
[2021-09-24 11:57] VITALS: BP 120/67; PULSE 72; RESP 17; O2SAT 96
[2021-09-24 12:25] LABS: Troponin 5 2HR 17.44 ng/L (0-15)
[2021-09-24 12:28] LABS: Troponin 5 2HR Delta -1.56 ABS# (0-10)
[2021-09-24 14:14] VITALS: BP 135/72; PULSE 79; O2SAT 98
== END 2021-09-24 14:01 | disposition home or self-care (01) ==
PROVIDERS: Emergency Provider Family Medicine; PCP Electrodiagnostic Medicine
DX: R55 Syncope and collapse (principal); D64.9 Anemia, unspecified; Z79.01 Long term (current) use of anticoagulants; E11.9 Type 2 diabetes mellitus without complications; E78.5 Hyperlipidemia, unspecified; Z85.46 Personal history of malignant neoplasm of prostate; Z86.711 Personal history of pulmonary embolism
CPT/HCPCS: 71045; 80053; 81003; 83880; 84484; 85025; 93005; 99283

== ENCOUNTER 2021-10-07 10:51 | Outpatient (CLI) | payer BC, SELFPAY ==
[2021-10-07 11:13] LABS: Basophils % 0.4 %; Eosinophils # 0.1 10^3/uL (0.0-0.8); Eosinophils % 1.5 %; Hematocrit 23.4 % (42.0-52.0); Hemoglobin 7.5 g/dL (11.7-16.6); Lymphocytes # 0.9 10^3/uL (0.8-4.8); Lymphocytes % 14.1 %; Mean Corpuscular HGB Conc 32.1 g/dL (30.0-36.0); Mean Corpuscular Hemoglobin 28.5 pg (28.0-34.0); Monocytes # 0.6 10^3/uL (0.2-0.9); Monocytes % 8.7 %; Neutrophils # 4.33 10^3/uL (1.8-7.7); Nucleated Red Blood Cells % 0.6 %; Platelet Count 362 10^3/cmm (130-400); Red Blood Count 2.63 10^6/uL (4.1-5.3); Red Cell Distribution Width 19.3 % (12.1-15.1); White Blood Count 6.7 10^3/uL (4.0-10.0)
[2021-10-07 11:34] LABS: Neutrophils % 75.3 %; Slide Review Slide Review Perform
== END 2021-10-07 10:52 | disposition home or self-care (01) ==
LOC: LAB 10:54
PROVIDERS: PCP Electrodiagnostic Medicine; Visit Provider Electrodiagnostic Medicine
DX: D64.9 Anemia, unspecified (principal); I11.0 Hypertensive heart disease with heart failure; I50.31 Acute diastolic (congestive) heart failure; I82.90 Acute embolism and thrombosis of unspecified vein; R60.9 Edema, unspecified; I48.91 Unspecified atrial fibrillation
CPT/HCPCS: 85025

== ENCOUNTER → 2021-10-08 08:38 | Day surgery (SDC) | payer BC, SELFPAY ==
[2021-10-08] VITALS (9 sets, daily range): BP systolic 134–148; BP diastolic 80–87; PULSE 68–94; RESP 18; TEMP 36.1–37.1; O2SAT 97–99
[2021-10-08] MEDS: sodium chloride 0.9% (100 ml) 100 ML 10 ML ×2 (08:47→12:17)
--- NOTE | 2021-10-08 10:24 | PC.NURSE ---
Pt to GI lab for blood transfusion. First unit transfusing without difficulty. No reaction noted.
--- NOTE | 2021-10-08 14:30 | PC.NURSE ---
Two units PRBC's infused as ordered. VSS. Pt tolerated well. No reaction noted.
== END ==
PROVIDERS: PCP Electrodiagnostic Medicine; Visit Provider Electrodiagnostic Medicine
DX: D64.9 Anemia, unspecified (principal)
CPT/HCPCS: 36415; 36430; 86850; 86900; 86920; P9016

== ENCOUNTER 2021-11-27 10:23 | Outpatient (CLI) | payer BC, SELFPAY ==
[2021-11-27 10:39] LABS: Eosinophils % 1.5 %; Hematocrit 26.1 % (42.0-52.0); Hemoglobin 8.3 g/dL (11.7-16.6); Lymphocytes # 0.4 10^3/uL (0.8-4.8); Lymphocytes % 18.8 %; Mean Corpuscular HGB Conc 31.8 g/dL (30.0-36.0); Mean Corpuscular Volume 91.3 fl (80-94); Mean Platelet Volume 10.4 fL (7.4-10.4); Monocytes # 0.2 10^3/uL (0.2-0.9); Monocytes % 12.2 %; Neutrophils # 1.31 10^3/uL (1.8-7.7); Neutrophils % 66.5 %; Nucleated Red Blood Cells % 0 %; Platelet Count 212 10^3/cmm (130-400); Red Blood Count 2.86 10^6/uL (4.1-5.3); Red Cell Distribution Width 18.4 % (12.1-15.1)
== END 2021-11-27 10:24 | disposition home or self-care (01) ==
PROVIDERS: PCP Electrodiagnostic Medicine; Visit Provider Electrodiagnostic Medicine
DX: D64.9 Anemia, unspecified (principal); I82.90 Acute embolism and thrombosis of unspecified vein; I48.91 Unspecified atrial fibrillation
CPT/HCPCS: 85025

== ENCOUNTER 2021-12-09 08:39 | Outpatient (CLI) | payer BC, SELFPAY ==
[2021-12-09 08:56] LABS: Eosinophils % 1.5 %; Hematocrit 21.2 % (42.0-52.0); Hemoglobin 6.8 g/dL (11.7-16.6); Lymphocytes # 0.6 10^3/uL (0.8-4.8); Lymphocytes % 21.5 %; Mean Corpuscular HGB Conc 32.1 g/dL (30.0-36.0); Mean Corpuscular Hemoglobin 29.4 pg (28.0-34.0); Mean Corpuscular Volume 91.8 fl (80-94); Monocytes # 0.3 10^3/uL (0.2-0.9); Neutrophils # 1.72 10^3/uL (1.8-7.7); Neutrophils % 66.2 %; Nucleated Red Blood Cells % 0 %; Platelet Count 219 10^3/cmm (130-400); Red Blood Count 2.31 10^6/uL (4.1-5.3); Red Cell Distribution Width 18.3 % (12.1-15.1); White Blood Count 2.6 10^3/uL (4.0-10.0)
== END 2021-12-09 08:40 | disposition home or self-care (01) ==
LOC: LAB 08:41
PROVIDERS: PCP Electrodiagnostic Medicine; Visit Provider Electrodiagnostic Medicine
DX: D64.9 Anemia, unspecified (principal); I82.90 Acute embolism and thrombosis of unspecified vein; I48.91 Unspecified atrial fibrillation
CPT/HCPCS: 85025

== ENCOUNTER → 2021-12-10 07:43 | Day surgery (SDC) | payer BC, SELFPAY ==
[2021-12-10] VITALS (9 sets, daily range): BP systolic 106–145; BP diastolic 51–81; PULSE 56–62; RESP 18; TEMP 36.3–36.8; O2SAT 97–100
[2021-12-10] MEDS: sodium chloride 0.9% (100 ml) 100 ML 10 ML ×2 (08:50→11:04)
== END ==
PROVIDERS: PCP Electrodiagnostic Medicine; Visit Provider Electrodiagnostic Medicine
DX: D64.9 Anemia, unspecified (principal); I48.91 Unspecified atrial fibrillation; I82.90 Acute embolism and thrombosis of unspecified vein; C61 Malignant neoplasm of prostate
CPT/HCPCS: 36415; 36430; 86850; 86900; 86920; P9016; P9040

== ENCOUNTER → 2021-12-26 07:37 | Day surgery (SDC) | payer BC, SELFPAY ==
[2021-12-26] VITALS (9 sets, daily range): BP systolic 109–148; BP diastolic 56–77; PULSE 55–78; RESP 16–18; TEMP 36.3–37; O2SAT 97–100
[2021-12-26] MEDS: sodium chloride 0.9% (100 ml) 100 ML 10 ML ×2 (09:24→11:15)
[2021-12-26 09:49] LABS: Hematocrit 23.2 % (42.0-52.0)
--- NOTE | 2021-12-26 13:10 | PC.NURSE ---
Pt to GI lab for blood transfusion. Hg 7.0 today. Two units PRBC's transfused without difficulty. No reaction noted. Pt off unit ambulatory, escorted by .
== END ==
PROVIDERS: PCP Electrodiagnostic Medicine; Visit Provider Electrodiagnostic Medicine
DX: D50.9 Iron deficiency anemia, unspecified (principal)
CPT/HCPCS: 36415; 36430; 85014; 85018; 86850; 86900; 86920; P9016

== ENCOUNTER 2022-01-09 12:59 | Oncology outpatient (recurring) (ONCR) | payer BC, SELFPAY ==
[2022-01-09 13:35] LABS: Basophils % 0.6 %; Eosinophils # 0.1 10^3/uL (0.0-0.8); Eosinophils % 1.3 %; Hematocrit 29.7 % (42.0-52.0); Hemoglobin 9.3 g/dL (11.7-16.6); Lymphocytes # 0.9 10^3/uL (0.8-4.8); Lymphocytes % 17.2 %; Mean Corpuscular HGB Conc 31.3 g/dL (30.0-36.0); Mean Corpuscular Hemoglobin 29.1 pg (28.0-34.0); Mean Corpuscular Volume 92.8 fl (80-94); Mean Platelet Volume 9.3 fL (7.4-10.4); Monocytes # 0.5 10^3/uL (0.2-0.9); Monocytes % 9.4 %; Neutrophils # 3.56 10^3/uL (1.8-7.7); Neutrophils % 67.2 %; Nucleated Red Blood Cells % 0 %; Platelet Count 215 10^3/cmm (130-400); Red Cell Distribution Width 17.1 % (12.1-15.1); White Blood Count 5.3 10^3/uL (4.0-10.0)
[2022-01-09 14:05] LABS: Alanine Aminotransferase 11 U/L (0-41); Albumin Level 4.1 g/dL (3.5-5.2); Alkaline Phosphatase 306 IU/L (40-130); Aspartate Amino Transferase 40 U/L (0-40); Blood Urea Nitrogen 16 mg/dL (8-23); Calcium 9.3 mg/dL (8.5-10.5); Carbon Dioxide 22 mmol/L (22-29); Chloride 104 mmol/L (98-107); Globulin 2.3 g/dL (1.3-4.6); Glomerular Filtration Rate 67.8 mL/min (90-130); Glucose 104 mg/dL (65-115); Osmolality Calculated 289 mOsm/kg (285-295); Sodium 139 mmol/L (136-145); Total Bilirubin 0.4 mg/dL (0.15-1.2); Total Protein 6.4 g/dL (6.6-8.7)
[2022-01-09 14:06] LABS: Testosterone Total 2.5 ng/dL (193-740)
== END 2022-01-28 23:59 | disposition home or self-care (01) ==
LOC: ONCMED 12:59
PROVIDERS: PCP Electrodiagnostic Medicine; Visit Provider Internal Medicine Hematology & Oncology
DX: C61 Malignant neoplasm of prostate (principal); C79.51 Secondary malignant neoplasm of bone; I26.92 Saddle embolus of pulmonary artery without acute cor pulmonale; I82.409 Acute embolism and thrombosis of unspecified deep veins of unspecified lower extremity; I48.0 Paroxysmal atrial fibrillation; E09.9 Drug or chemical induced diabetes mellitus without complications; T38.0X5A Adverse effect of glucocorticoids and synthetic analogues, initial encounter; Z79.818 Long term (current) use of other agents affecting estrogen receptors and estrogen levels; Z79.52 Long term (current) use of systemic steroids; Z79.01 Long term (current) use of anticoagulants; Z95.828 Presence of other vascular implants and grafts; Z79.899 Other long term (current) drug therapy
CPT/HCPCS: 80053; 84153; 84403; 85025

== ENCOUNTER 2022-01-23 05:50 | Day surgery (SDC) | payer BC, SELFPAY ==
[2022-01-22 10:40] VITALS: BMI 33.7
--- NOTE | 2022-01-23 | SCC_ITS ---
Procedure done: Port-A-Cath placement into the left subclavian vein with intraoperative fluoroscopy interpretation. 4.3 seconds of fluoroscopic guidance, for a cumulative dose of 0.59 mGy, was provided to Dr. Ch by the radiology department. C-arm images of the chest were saved for the patient's permanent record. NICOLAS
[2022-01-23 06:23] VITALS: BP 114/62; PULSE 65; RESP 18; TEMP 36.6; O2SAT 100
--- NOTE | 2022-01-23 06:23 | ANES.PREANE2 ---
Pre-Anesthetic Assessment Height/Weight: Height 1.8 m Weight 109.769 kg Preop Diagnosis: 1. Umbilical hernia.2. Subcutaneous masses of left upper extremity x2. Operation Date: 01/23/22 07:20 Proposed Procedures p Portacath Placement 99153/ C61/C79.51(Not Applicable) - Kurt Ch MD Familial anesthetic complications: none Was Beta Jacquelin taken within 24 hours: N/A Was Clonidine taken within 24 hours: N/A Last intake: > 8ghrs Social No alcohol and No tobacco Exam alert, oriented x 3, clear to auscultation bilaterally and regular rate & rhythm Airway Cervical ROM: within normal limits Mallampati: Class III Dentition: chipped CV/HEM Atrial Fibrillation, Anemia and Hypertension hx PE w/ IVC filter prostate cancer Metabolic Diabetes Mellitus (steroid-induced) and Hyperlipidemia Anesthetic Plan ASA status: 3 Anesthesia: MAC Risk of > 500 ml blood loss (7ml/kg in children): No Medications/Allergies Home Medications Medication Instructions Recorded Confirmed Last Taken Type hydrocodone 5 mg-acetaminophen 325 1 tab PO Q6H PRN 01/14/20 01/22/22 12/25/21 History mg tablet multivitamin (Multiple Vitamins) 1 tab PO DAILY 01/14/20 01/23/22 01/22/22 History tamsulosin 0.4 mg capsule 0.4 mg PO BID 01/14/20 01/23/22 01/22/22 History lactobacillus combination no.8 3 tab PO DAILY 05/09/20 01/23/22 01/22/22 History [Adult Probiotic] pantoprazole 40 mg tablet,delayed 40 mg PO DAILY 10/10/20 01/23/22 01/22/22 History release diphenhydramine HCl 25 mg capsule 25 mg PO QID PRN 04/04/21 01/22/22 12/25/21 History (Benadryl) hydroxyzine HCl 25 mg tablet 25 mg PO TID PRN #14 tab 04/04/21 01/22/22 12/25/21 Rx amiodarone 200 mg tablet 200 mg PO DAILY #90 tab 07/09/21 01/22/22 12/25/21 Rx lorazepam 0.5 mg tablet 0.5 mg PO BID PRN tab 09/10/21 01/22/22 12/25/21 History meloxicam 7.5 mg tablet 7.5 mg PO DAILY 10/08/21 01/23/22 01/22/22 History apixaban 5 mg tablet (Eliquis) 2.5 mg PO BID tab 01/09/22 01/22/22 01/22/22 History furosemide 40 mg tablet 20 mg PO DAILY tab 01/09/22 01/23/22 01/22/22 History prochlorperazine maleate 10 mg 10 mg PO .q4hr PRN #30 tab 01/09/22 01/23/22 01/22/22 Rx tablet Allergies Allergy/AdvReac Type Severity Reaction Status Date / Time Iodinated Contrast Media Allergy ALGY-Bliste Verified 01/22/22 10:37 r [facility] Anesthesia Medical History (Updated 01/09/22 @ 15:55 by Priyanka Michaels MD) Atrial fibrillation Chronic steroid use 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 DVT (deep venous thrombosis) Hyperlipidemia Malignant neoplasm of prostate metastatic to bone Metastasis Prostate cancer Pulmonary emboli Family History (Updated 01/09/22 @ 15:03 by Adrianna Larkin LPN) Grandfather CAD (coronary artery disease) Cancer Pancreatic Mother Cancer Breast Sister Cancer metastatic breast Family/Other Cancer Aunt - Pancreatic Father Lung disease Daughter Psychiatric illness Denies family history of Diabetes Clotting disorder Dementia Hyperlipidemia Chronic kidney disease (CKD) Suicide Anesthesia complication Bleeding disorder Hypertension Stroke Social History (Updated 01/09/22 @ 15:00 by Adrianna Larkin LPN) Smoking and tobacco status: never smoked Alcohol intake: never Data Anesthesia Cardiac Studies: Echocardiogram Limited Views 01/16/20 Transesophageal Echocardiogram 01/17/20
--- NOTE | 2022-01-23 06:33 | W.PM.OPSUD ---
Surgery/Procedure H&P Update DATE OF PROCEDURE: January 23, 2022 DATE H&P PERFORMED: 01/21/22 H&P UPDATE INFORMATION: No changes to prior documentation PREOP DIAGNOSIS: Metastatic prostate cancer. PLANNED PROCEDURE: Operation Date: 01/23/22 07:20 Proposed Procedures p Portacath Placement 04299/ C61/C79.51(Not Applicable) - Kurt Ch MD
--- NOTE | 2022-01-23 06:49 | SC_ITS ---
WS: [id number] C-ARM RADIOGRAPHS CHEST; 3 IMAGES HISTORY: Intraoperative for placement. COMPARISON: 09/24/2021 LEFT subclavian Mediport has been placed. The tip overlies the mid SVC. SC/C-arm FL for CVA [id number] IMPRESSION: Intraoperative imaging during LEFT subclavian Mediport placement.
[2022-01-23] MEDS: lidocaine 2% INJ 20 mL INJECTION (07:19)
[2022-01-23] MEDS: heparin, porcine 1,000 unit/mL INJ 10 mL 10000 UNIT IRRIGATION (07:21)
--- NOTE | 2022-01-23 07:30 | P.OP_ITS ---
Operative Report Date of procedure: January 23, 2022 Pre-op diagnosis: Preop Diagnosis Metastatic prostate cancer. Post-op diagnosis: Same. Procedure done: Port-A-Cath placement into the left subclavian vein with intraoperative fluoroscopy interpretation. Surgeon: General Surgery Kurt Ch MD Anesthesia: MAC Complications: None. Procedure: The patient was brought to the Operating Room and was placed in a supine position on the operating room table. A monitored anesthetic was induced. The shoulders were extended by means of a posterior shoulder roll. The anterior surface of the chest and neck were prepped and draped in a sterile fashion. 1% lidocaine was used to anesthetize a small area underneath the left clavicle. The subclavian vein was accessed on the first pass with a needle and syringe as evidenced by the return of dark nonpulsatile blood. The J-wire was passed down the needle and the needle was removed. The C-arm was positioned and showed the wire extending down the vena cava. A site just inferiorly on the chest wall was anesthetized using a combination of 1% lidocaine and 0.5% bupivacaine with 1:2 00,000 parts of epinephrine. A transverse incision was made and an inferior pocket was created in the subcutaneous layer using cautery in preparation for port placement. The Port-A-Cath tubing was passed from the incision through the subcutaneous layer to the exit point of the J-wire. The tubing was attached to the port and was cut to an appropriate length. The introducer and sheath were passed over the J-wire, and the introducer and J-wire were removed. The Port-A-Cath tubing was passed down the sheath, which was torn away. The C-arm was positioned and showed good placement of the Port-A-Cath tubing tip in the superior vena cava. The port aspirated easily and flushed well with hep flush solution. The port was sewn in place with some interrupted sutures of 3-0 PDS. The transverse incision was closed at the dermis using a single inverted suture of 3-0 Vicryl and the skin was approximated using a running subcuticular suture of 4-0 Vicryl. The small incision under the clavicle at the previous insertion site of the J wire was closed using a single inverted suture of 4-0 Vicryl. Benzoin and Steri-Strips were placed over the incisions and a sterile bandage followed. The patient was taken to the recovery area in stable condition postoperatively. INTRAOPERATIVE FLUOROSCOPY interpretation: FINDINGS: Intraoperative fluoroscopic images of a Port-A-Cath placement were reviewed. An initial image reveals a J-wire entering the left subclavian vein and extending down the vena cava. Subsequent images reveal a Port-A-Cath on that side of the chest with its tubing tip in good location in the superior vena cava. No obvious pneumothorax is identified.
[2022-01-23 07:34] VITALS: BP 110/59; PULSE 62; RESP 20; TEMP 36.2; O2SAT 92
[2022-01-23 07:39] VITALS: BP 118/64; PULSE 60; RESP 18; O2SAT 95
[2022-01-23 07:44] VITALS: BP 117/73; PULSE 62; RESP 18; O2SAT 93
[2022-01-23 07:49] VITALS: BP 121/70; PULSE 68; RESP 16; TEMP 36.1; O2SAT 94
[2022-01-23 08:15] VITALS: BP 125/72; PULSE 62; RESP 18; TEMP 36.6; O2SAT 94
[2022-01-23] MEDS: sodium chloride 0.9% 1,000 ML 30 ML IV (08:50)
--- NOTE | 2022-01-23 14:31 | ANE.PACU2 ---
Inpatient post-anesthesia follow up: Airway intact: Yes Vital signs: Temperature 97.8 F Pulse Rate 62 Respiratory Rate 18 Blood Pressure 125/72 Pulse Oximetry 94 Oxygen Delivery Me thod Room Air Oxygen Flow Rate 6 Fraction of Inspir ed Oxygen Hydration adequate: Yes Nausea and vomiting: No Pain level: 1 Mental status: Baseline
== END 2022-01-23 08:25 | disposition home or self-care (01) ==
PROVIDERS: PCP Electrodiagnostic Medicine; Visit Provider Surgery
PROC: (CPT 36561; principal; 2022-01-23 07:00)
DX: C61 Malignant neoplasm of prostate (principal); I48.91 Unspecified atrial fibrillation; I10 Essential (primary) hypertension; E78.5 Hyperlipidemia, unspecified; E11.9 Type 2 diabetes mellitus without complications; Z79.52 Long term (current) use of systemic steroids; Z86.718 Personal history of other venous thrombosis and embolism; Z86.711 Personal history of pulmonary embolism; M19.90 Unspecified osteoarthritis, unspecified site; Z79.01 Long term (current) use of anticoagulants
CPT/HCPCS: 36561; 76000; 77001; C1788; J0690; J1644; J2704; J3010; J3490; J7030

== ENCOUNTER 2022-01-29 08:36 | Outpatient (CLI) | payer BC, SELFPAY ==
--- NOTE | 2022-01-29 | XR_ITS ---
WS: [id number] LUMBAR SPINE TECHNIQUE: 3 views of the lumbar spine CLINICAL INFORMATION: BACK PAIN COMPARISON: 2019 FINDINGS: Diffuse blastic metastasis throughout the visualized bony structures including the lower thoracic, noe mbar spine, pelvis, and partially visualized sacrum. This appears progressed compared to 2019 and 202 0. Findings can be further evaluated with bone scan. XR/XR lumbar spine 2-3V* [id number] IMPRESSION: Progressed diffuse blastic metastasis throughout the visualized bony structures likely due to prostate metastasis. Findings can be further evaluated with bone scan.
== END 2022-01-29 08:37 | disposition home or self-care (01) ==
LOC: RADOUTREAD 01-30 08:39
PROVIDERS: PCP Electrodiagnostic Medicine; Visit Provider Nurse Practitioner
DX: M54.9 Dorsalgia, unspecified (principal); C79.9 Secondary malignant neoplasm of unspecified site
CPT/HCPCS: 72100

== ENCOUNTER 2022-02-10 11:40 | Emergency (ER) | payer BC, SELFPAY ==
[2022-02-10] VITALS (12 sets, daily range): BP systolic 116–158; BP diastolic 60–85; PULSE 68–88; RESP 14–16; TEMP 37; O2SAT 93–97
--- NOTE | 2022-02-10 12:30 | PC.NURSE ---
PT port accessed prior to arriving to [facility] ED. Dressing dry and intact with no redness at or around the site.
--- NOTE | 2022-02-10 13:21 | W.ED.HA ---
HPI - Headache General: Chief Complaint: Headache Stated Complaint: Head pains Time Seen by Provider: 02/10/22 13:20 History of Present Illness: Mr. Gleason is a 61-year-old gentleman with significant past medical history of metastatic prostate cancer currently on palliative chemotherapy presenting to the emergency department due to headache. He was just seen at oncology clinic referred here for further evaluation. He notes approximately 1 week ago having a very short episode of severe sharp head pain which resolved spontaneously. Over the past 4 5 days he has had persistent headache which is throbbing in the frontal region. He notes occasional episodes of confusion and speech difficulty. Additionally he notes some right lower face numbness. Overall course of symptoms has persisted. Intensity is moderate to severe. Denies frequent history of headaches in the past. He was noted to have low hemoglobin and transfusion was ordered earlier however he has not received this. No other specific changes in health, exacerbating, or alleviating factors identified. 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 DVT (deep venous thrombosis) Hyperlipidemia Malignant neoplasm of prostate metastatic to bone Metastasis Prostate cancer Pulmonary emboli Family History Grandfather CAD (coronary artery disease) Cancer Pancreatic Mother Cancer Breast Sister Cancer metastatic breast Family/Other Cancer Aunt - Pancreatic Father Lung disease Daughter Psychiatric illness Denies family history of Diabetes Clotting disorder Dementia Hyperlipidemia Chronic kidney disease (CKD) Suicide Anesthesia complication Bleeding disorder Hypertension Stroke Social History Smoking and tobacco status: never smoked Alcohol intake: never Physical Exam Const: COMMON NORMALS: patient oriented x3 and alert GENERAL APPEARANCE: cooperative and well developed HENMT: COMMON NORMALS: normocephalic and atraumatic HEAD & SCALP: normocephalic and atraumatic Eye: COMMON NORMALS: conjunctivae normal CONJUNCTIVA: Yes conjunctivae normal SCLERA: sclerae normal Neck/C-Spine: COMMON NORMALS: supple GENERAL: Yes trachea midline Resp: COMMON NORMALS: normal respiratory effort and clear to auscultation bilaterally EFFORT & INSPECTION: Yes able to speak in complete sentences AUSCULTATION: clear to auscultation bilaterally Cardio: COMMON NORMALS: regular rate and regular rhythm RATE: regular rate RHYTHM: regular rhythm GI: COMMON NORMALS: Soft to palpation PALPATION: Yes Soft to palpation and No Tenderness to palpation present (GI) PERCUSSION: normal to percussion Extremity: GENERAL: Yes normal exam except as noted and No edema Neuro: COMMON NORMALS: patient oriented x3, moves all extremities, no focal motor deficits and no sensory deficits noted; negative for CN's II-XII intact bilaterally (right lower face sensory changes roughly 75% normal, otherwise intact) SENSORIUM/ORIENTATION: Yes alert and No Orientation impaired Psych: COMMON NORMALS: mental status grossly normal and Normal thought process present THOUGHT PROCESS: Normal thought process present Course ED course: - Patient was seen and evaluated by me at bedside - Patient placed on cardiac monitors, IV access obtained - Initial evaluation notable for exam as above. No other focal neurologic deficits. - Labs personally interpreted by me - Headache treatment ordered - Labs notable for leukopenia and anemia. INR normal. Metabolic panel without acute abnormality to explain symptoms. - Imaging notable for mass identified on CT head - Initially Dr. Michaels contacted me after seeing the head CT and recommended transfer to [facility] for further evaluation as the patient has been seen there previously. Unfortunately, in contacting [facility] they have no beds available with waiting list approximately 5 days. - At this point I decided to proceed with MRI. 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 There is likely disruption of the dural sinuses/venous sinuses - Upon serial reexamination after treatment the patient was similar with some improvement in headache with treatment. No new neurologic deficits appreciated on reexamination. - Based on patient history, evaluation, and testing as interpreted the most likely cause of the patient's condition is likely metastatic cancer resulting in headache and minor neurologic symptoms - The results of ED evaluation were discussed with the patient including potential options. I contacted both [facility] in [facility] who do not have bed availability, in [place] does not have bed availability, [facility] in [place] also has a multi day wait list. Ultimately very challenging situation with few good options. I did offer to keep patient in the emergency department and continue to attempt transfer. Ultimately the patient elected to proceed with outpatient follow-up with plan to return to the hospital in the morning for outpatient transfusion and further discussion/evaluation with the oncology team. Well not the preferred/safest way forward this is probably reasonable given overall clinical context. I did rediscuss the case with oncology to ensure that patient can have close outpatient follow-up. I discussed prescriptions and/or symptomatic cares (if applicable) including appropriate and responsible use, plan to hold Eliquis, followup plan, and return precautions. The patient verbalized understanding and felt safe for discharge. - Patient discharged in fair condition. Note: Click bubbles or prepopulated [place] in note writing are used for assistance with data collection and billing and are inherently more limited than narrative and other text portions of this note. Please use narrative for additional clinical history and defer to narrative/free test for any case of contradictory information. If information appears in only free text or click bubble it should be considered present or absent as reported. Please contact note technical report writer for clarifications of clinical information or contradictory information. MDM is a brief summary, contradictory or erroneous seeming information should be clarified and full note should be reviewed. Vital Signs: Vital signs: Vital Signs Temperature 98.6 F 02/10/22 12:11 Pulse Rate 74 02/10/22 20:26 Respiratory Rate 15 02/10/22 20:26 Blood Pressure 158/80 02/10/22 20:26 Pulse Oximetry 93 02/10/22 20:26 MDM - Headache Medical Decision Making 61-year-old gentleman with history of metastatic prostate cancer presenting due to headache and facial tingling as well as minor waxing and waning other neurologic symptoms. 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 Unfortunately the region has severely limited bed availability and multi-day waiting list for [facility] referral centers. Patient desires discharge with plan to follow-up in the morning with outpatient oncology again. Strict return precautions given. Will treat with course of steroids for cerebral edema. Medical Records I reviewed the patient's medical records. Lab Data I reviewed the patient's lab results. Radiology Impressions Head CT 02/10/22 13:40 IMPRESSION: 1. There is a large extra-axial mass centered towards the LEFT posterior frontal parietal vertex with variable density measuring 2.5 x 5.4 x 4.3 cm. Mass effect upon the cerebrum with cerebral edema. No midline shift. Small amount of increased signal may be some small petechial hemorrhages or calcification or mass with increased cellular content such as lymphoma. Differential also includes a large meningioma and metastatic site. Recommend follow-up MRI brain with and without contrast. 2. Sinusitis. Head MRI 02/10/22 14:43 IMPRESSION: 1. Prominent left parietal extra-axial mass again evident containing signal suggesting some hemorrhage into a solid lesion. Multiple other extra-axial masses containing enhancement also present along with extracranial disease in the left parietal area and abnormal signal in the calvarium suggesting metastatic leptomeningeal and bony disease related to the known prostate cancer. Extensive bilateral supratentorial dural enhancement also present. Thrombosis or invasion of dural veins superficial to the left parietal extra-axial mass also suspected. 2. Questionable turbulent flow, partial thrombosis and/or invasion of the left sigmoid sinus. 3. Prominent sinus disease and slight right mastoid disease still present. Laboratory Results PT 15.10 SECONDS (12.1-14.9) H 02/10/22 14:25 INR 1.16 (0.8-1.2) 02/10/22 14:25 APTT 27.4 SECONDS (23.9-36.7) 02/10/22 14:25 SARS-CoV-2 Ag (Rapid) Negative (Negative) 02/10/22 19:09 Critical Care Time Critical Care Time: Critical Care Time: Yes Total Critical Care Time: 35 Attestation: Due to a high probability of clinically significant, possibly life threatening deterioration, the patient required my highest level of attention and preparedness to intervene emergently and I personally spent this critical care time directly and personally managing the patient. This critical care time included obtaining a history; examining the patient; pulse oximetry; ordering and review of laboratory and imaging studies; arranging urgent treatment with development of a management plan; evaluation of patient's response to treatment; frequent reassessment; and, discussions with other providers as applicable. It was exclusive of separately billable procedures. Primary system involved is oncologic/neuro Discharge Plan Discharge Patient Disposition: Home Clinical Impression: Metastatic cancer to brain, Headache Condition: Stable Prescriptions: New Decadron 4 mg tablet 4 mg PO QID Qty: 20 0RF No Action lactobacillus combination no.8 1 tab PO QAM 0RF Eliquis 5 mg tablet 2.5 mg PO BID 0RF zolpidem 5 mg tablet 5 mg PO BEDTIME 0RF gabapentin 300 mg capsule 300 mg PO BEDTIME 0RF furosemide 20 mg tablet 20 mg PO QAM 0RF ondansetron 4 mg tablet,disintegrating 4 mg PO Q8H PRN (Reason: nausea and vomiting) Qty: 30 1RF multivitamin [Multiple Vitamins] Tablet 1 tab PO BEDTIME 0RF hydrocodone-acetaminophen 5-325 mg tablet 1 tab PO Q6H PRN (Reason: Pain) 0RF tamsulosin 0.4 mg capsule 0.4 mg PO BID 0RF pantoprazole 40 mg tablet,delayed release (DR/EC) 40 mg PO BEDTIME 0RF meloxicam 7.5 mg tablet 7.5 mg PO BEDTIME 0RF prochlorperazine maleate [Compazine] 10 mg Tablet 10 mg PO Q4H PRN (Reason: Mild Nausea) Qty: 30 3RF lorazepam 1 mg Tablet 0.5 - 1 mg PO Q6H PRN (Reason: Severe Nausea) Qty: 30 3RF albuterol sulfate 2.5 mg /3 mL (0.083 %) solution for nebulization 2.5 mg inhalation Q6H PRN (Reason: Shortness Of Breath) 0RF vitamin B complex Tablet 1 tab PO QAM 0RF ipratropium bromide 0.02 % solution See Rx Instructions .ROUTE .COMPLEX 0RF Rx Instructions: one vial qid prn Vitamin B-12 1 tab PO QAM 0RF amiodarone 200 mg tablet 200 mg PO BEDTIME 0RF prednisone 5 mg tablet See Rx Instructions .ROUTE .COMPLEX 0RF Rx Instructions: 5 mg orally bid Take on days 1-21 of each cycle dexamethasone 4 mg tablet See Rx Instructions .ROUTE .COMPLEX 0RF Rx Instructions: 8 mg orally bid the day before treatment, day of treatment and day after treatment potassium chloride 20 mEq tablet extended release 20 meq PO BEDTIME 0RF Discharge Orders: Discharge ED (Routine); Ordered 02/10/22 Ordered By: Greg Sung Referrals: Jay Baker DO [Primary Care Provider] - Discharge Diet: Usual diet Discharge Activity: Resume usual activity Patient Instructions: General Headache (ED), Opioid Safety Activity Restrictions/Additional Instructions: Thank you for visiting the emergency department. You were seen and evaluated for headache. As discussed this is likely related to brain metastases including one mass that as hemorrhage (bleeding). You are choosing to proceed with outpatient follow-up. Please stop taking your Eliquis (apixaban) until further instructed by your oncology team. Additionally you may increase your hydrocodone to 1 tablet every 4 hours or 2 tablets every 6 hours as needed for pain. Please be cautious regarding oversedation and do not combine with other sedating substances. Please follow-up with your oncology team tomorrow. Please return to the emergency department for any new neurologic symptoms, uncontrolled pain, or anything else that you are concerned about and feel needs emergency department evaluation. 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
--- NOTE | 2022-02-10 13:40 | CT_ITS ---
WS: [id number] CT HEAD NONCONTRAST HISTORY: headache, right lower facial sensory changes TECHNIQUE: Contiguous axial imaging performed through the brain in 2.5 mm imaging. Bone and soft tiss ue windows. Sagittal and coronal reformats reviewed. All CT scans at [facility] use at least one of these dose optimization techniques: automated exposure control; mA and/or kV adjustment per pa tient size (includes targeted exams where dose is matched to clinical indication); or iterative recon struction. DLP: 967.67 mGy.cm COMPARISON: None available. Variable density mass in an extra-axial location towards the LEFT posterior frontal and parietal vert ex measures 2.5 x 5.4 x 4.3 cm. There is mass effect upon the brain with a small amount of edema in t he white matter adjacent to the mass. There is variable density within the mass which may be some sma ll areas of hemorrhage or calcification. There is mild associated dural thickening over the LEFT vert ex. Mild atrophy bilaterally. No midline shift or herniation. Mild small vessel ischemic disease. Ventricles: Normal size with no hydrocephalus. Paranasal sinuses: Extensive soft tissue within the frontal and frontal ethmoid recesses and the LEFT sphenoid sinus. Mastoid air cells: Well pneumatized. Calvarium and scalp: No fracture. No hypertrophy or cortical thickening or bone destruction. CT/CT head wo con* [id number] IMPRESSION: 1. There is a large extra-axial mass centered towards the LEFT posterior front al parietal vertex with variable density measuring 2.5 x 5.4 x 4.3 cm. Mass eff ect upon the cerebrum with cerebral edema. No midline shift. Small amount of in creased signal may be some small petechial hemorrhages or calcification or mass with increased cellular content such as lymphoma. Differential also includes a large meningioma and metastatic site. Recommend follow-up MRI brain with and w ithout contrast. 2. Sinusitis.
[2022-02-10] MEDS: morphine 4 mg/mL SDV 1 mL IVP ×2 (14:30→19:52)
--- NOTE | 2022-02-10 14:43 | MRR_ITS ---
PROCEDURE INFORMATION: Exam: MR Head Without Contrast Exam date and time: 02/10/2022 3:40 PM Age: 61 years old Clinical indication: Abnormal findings; Abnormal radiologic findings of head/skull; Intracranial mass/space-occupying lesion; Patient HX: HX of prostate cancer; Additional info: Abnormal CT, headache, R facial numbness TECHNIQUE: Imaging protocol: MR of the head without contrast. COMPARISON: CT head wo con* [id number] 02/10/2022 2:05 PM FINDINGS: Brain: Prominent left parietal extra-axial mass again evident, currently measuring about 2.3 x 5.9 x 7 cm and containing heterogeneous T1 and T2 signal, including a non-marginated focus in its anteroinferior medial aspect of prominently increased T1 signal having some restricted diffusion; apparent blood products in the mass on the FSBB images. Some enhancement evident in the left parietal mass as well as in multiple smaller enhancing extra-axial masses on along each cerebral hemisphere. Dural thickening containing enhancement evident along much of each cerebral hemisphere, including subjacent to the left parietal extra-axial mass, with thrombosis or invasion of dural veins in this area strongly suspected. Continued mild vasogenic edema in the left parietal lobe. No acute infarct. Cerebral ventricles: Still no ventriculomegaly. Bones/joints: Heterogeneous signal throughout the calvarium. Paranasal sinuses: Prominent bilateral frontal and left sphenoid sinus disease, some disease in the ethmoid air cells bilaterally and minimal mucosal thickening in the maxillary sinuses still present. Still no definite air-fluid level. Mastoid air cells: Slight right mastoid disease more apparent than previously. Orbital cavities: Unremarkable. Vasculature: Questionable turbulent flow, partial thrombosis and/or invasion of the left sigmoid sinus. No complete thrombosis of the superior sagittal sinus. Soft tissues: Flat focus of intermediate T1 signal along the external table of the left parietal bone associated with outward displacement of the deep scalp fat measuring about 4 mm in craniocaudal length, 3.5 cm in oblique depth and 2.4 cm in oblique width; soft tissue density evident in the same area on the recent CT. MR/MR head wo/w con [id number] IMPRESSION: 1. Prominent left parietal extra-axial mass again evident containing signal suggesting some hemorrhage into a solid lesion. Multiple other extra-axial masses containing enhancement also present along with extracranial disease in the left parietal area and abnormal signal in the calvarium suggesting metastatic leptomeningeal and bony disease related to the known prostate cancer. Extensive bilateral supratentorial dural enhancement also present. Thrombosis or invasion of dural veins superficial to the left parietal extra-axial mass also suspected. 2. Questionable turbulent flow, partial thrombosis and/or invasion of the left sigmoid sinus. 3. Prominent sinus disease and slight right mastoid disease still present.
[2022-02-10 14:51] LABS: INR 1.16 (0.8-1.2)
[2022-02-10 14:52] LABS: Partial Thromboplastin Time 27.4 SECONDS (23.9-36.7)
[2022-02-10] MEDS: gadobenate dimeglumine 20 mL vial IV (16:48)
[2022-02-10] MEDS: dexamethasone 10 mg/mL INJ IVP (16:58)
[2022-02-10 20:15] LABS: SARS Covid-2 Antigen Negative (Negative)
== END 2022-02-10 20:28 | disposition home or self-care (01) ==
PROVIDERS: Emergency Provider Emergency Medicine; PCP Electrodiagnostic Medicine
DX: C79.31 Secondary malignant neoplasm of brain (principal); C61 Malignant neoplasm of prostate; R51.9 Headache, unspecified; G93.6 Cerebral edema; I48.91 Unspecified atrial fibrillation; E11.9 Type 2 diabetes mellitus without complications; E78.5 Hyperlipidemia, unspecified; C79.51 Secondary malignant neoplasm of bone
CPT/HCPCS: 36591; 70450; 70553; 80053; 85007; 85025; 85610; 85730; 86850; 86900; 87426; 96374; 96375; 96376; 99284; A9577; J1100; J1642; J2270

== ENCOUNTER 2022-02-11 08:00 | Oncology outpatient (recurring) (ONCR) | payer BC, SELFPAY ==
[2022-02-04] VITALS (12 sets, daily range): BP systolic 137–155; BP diastolic 78–90; PULSE 61–71; RESP 16; TEMP 36.3–37.7; O2SAT 98; BMI 34.7
[2022-02-04 08:58] LABS: Hematocrit 21.1 % (42.0-52.0); Hemoglobin 6.6 g/dL (11.7-16.6); Mean Corpuscular HGB Conc 31.3 g/dL (30.0-36.0); Mean Corpuscular Hemoglobin 28.1 pg (28.0-34.0); Mean Corpuscular Volume 89.8 fl (80-94); Mean Platelet Volume 10.3 fL (7.4-10.4); Platelet Count 200 10^3/cmm (130-400); Red Blood Count 2.35 10^6/uL (4.1-5.3); Red Cell Distribution Width 17.3 % (12.1-15.1)
[2022-02-04 09:09] LABS: Alanine Aminotransferase 8 U/L (0-41); Albumin Level 3.2 g/dL (3.5-5.2); Alkaline Phosphatase 408 IU/L (40-130); Anion Gap 14.2 (5-19); Aspartate Amino Transferase 37 U/L (0-40); Blood Urea Nitrogen 15 mg/dL (8-23); Calcium 8.2 mg/dL (8.5-10.5); Carbon Dioxide 25 mmol/L (22-29); Chloride 104 mmol/L (98-107); Globulin 2.1 g/dL (1.3-4.6); Glucose 105 mg/dL (65-115); Osmolality Calculated 291 mOsm/kg (285-295); Potassium 3.2 mmol/L (3.5-5.1); Sodium 140 mmol/L (136-145); Total Bilirubin 0.4 mg/dL (0.15-1.2); Total Protein 5.3 g/dL (6.6-8.7)
[2022-02-04 10:01] LABS: Absolute Segmented Neutrophil 2.5 10/cmm (1.6-7.1); Band Neutrophils Absolute 0.2 10^3/cmm (0.0-1.2); Eosinophils 2 %; Lymphocytes 15 %; Monocytes Absolute 0.5 10^3/cmm (0.1-0.6); Segmented Neutrophils 62 %; Total Cells Counted 100 (0-100)
[2022-02-04 10:02] LABS: Absolute Neutrophil 2.7 10^3/cmm (1.4-6.5); Anisocytosis 1+; Giant Platelets Trace; Hypochromasia 2+; Lymphocytes Absolute 0.6 10^3/cmm (1.2-3.4); Macrocytosis 2+; Platelet Estimate Decreased (Normal); Polychromasia 2+
[2022-02-04] MEDS: dexamethasone 4 mg Tablet 8 MG PO (11:07)
[2022-02-04] MEDS: acetaminophen 325 mg Tablet 650 MG PO (11:23)
[2022-02-04] MEDS: diphenhydrAMINE 50 mg/mL SDV 1mL 25 MG IVP (11:25)
[2022-02-04 14:30] LABS: Iron 45 ug/dL (59-158); Percent Saturation 29.6 % (20-50); Total Iron Binding Capacity 152 mcg/dl; Unsaturated Iron Binding 107 ug/dL (112-347); Vitamin B12 498 pg/mL (232-1245)
[2022-02-04 14:52] LABS: Ferritin 1399 ng/mL (30-400)
[2022-02-04] MEDS: FUROsemide 10 mg/mL SDV 2mL 20 MG IVP (15:08)
[2022-02-05 09:49] LABS: Hematocrit 27.2 % (42.0-52.0); Mean Corpuscular HGB Conc 32.4 g/dL (30.0-36.0); Mean Corpuscular Hemoglobin 27.8 pg (28.0-34.0); Mean Corpuscular Volume 86.1 fl (80-94); Mean Platelet Volume 10.1 fL (7.4-10.4); Platelet Count 230 10^3/cmm (130-400); Red Blood Count 3.16 10^6/uL (4.1-5.3); Red Cell Distribution Width 16.6 % (12.1-15.1); White Blood Count 5.8 10^3/uL (4.0-10.0)
[2022-02-05] MEDS: sodium chloride 0.9% 250 ML 100 ML IV (09:49)
[2022-02-05] MEDS: palonosetron 0.25 mg/5 mL SDV IVP (09:50)
[2022-02-05] MEDS: famotidine 20 mg/2 mL INJ IVP (09:52)
[2022-02-05] MEDS: diphenhydrAMINE 50 mg/mL SDV 1mL 25 MG IVP (09:53)
[2022-02-05 10:31] VITALS: BP 142/84; PULSE 60; RESP 18; TEMP 36.1; O2SAT 96
[2022-02-05 10:33] LABS: Hemoglobin 8.8 g/dL (11.7-16.6)
[2022-02-05 10:34] LABS: Slide Review Slide Review Perform; Total Cells Counted 100 (0-100)
[2022-02-05 10:35] LABS: Absolute Neutrophil 4.6 10^3/cmm (1.4-6.5); Absolute Segmented Neutrophil 3.7 10/cmm (1.6-7.1); Anisocytosis 2+; Band Neutrophils Absolute 0.9 10^3/cmm (0.0-1.2); Eosinophils 0 %; Giant Platelets 1+; Hypochromasia 1+; Lymphocytes 9 %; Macrocytosis 2+; Microcytosis Trace; Monocytes Absolute 0.6 10^3/cmm (0.1-0.6); Ovalocytes Trace; Platelet Estimate Normal (Normal); Polychromasia 1+; Segmented Neutrophils 64 %
[2022-02-05 11:31] VITALS: BP 144/85; PULSE 54; RESP 16; TEMP 36.9; O2SAT 97
[2022-02-10 09:00] VITALS: BMI 34.7
[2022-02-10 09:11] LABS: Hematocrit 24.9 % (42.0-52.0); Hemoglobin 7.9 g/dL (11.7-16.6); Mean Corpuscular HGB Conc 31.7 g/dL (30.0-36.0); Mean Corpuscular Hemoglobin 28.1 pg (28.0-34.0); Mean Corpuscular Volume 88.6 fl (80-94); Mean Platelet Volume 9.6 fL (7.4-10.4); Platelet Count 210 10^3/cmm (130-400); Red Blood Count 2.81 10^6/uL (4.1-5.3); Red Cell Distribution Width 16.2 % (12.1-15.1); White Blood Count 2.4 10^3/uL (4.0-10.0)
[2022-02-10 09:31] LABS: Alanine Aminotransferase 11 U/L (0-41); Albumin Level 2.9 g/dL (3.5-5.2); Alkaline Phosphatase 243 IU/L (40-130); Anion Gap 13.9 (5-19); Aspartate Amino Transferase 18 U/L (0-40); Blood Urea Nitrogen 18 mg/dL (8-23); Calcium 7.9 mg/dL (8.5-10.5); Carbon Dioxide 25 mmol/L (22-29); Chloride 103 mmol/L (98-107); Globulin 1.9 g/dL (1.3-4.6); Glomerular Filtration Rate 85.5 mL/min (90-130); Glucose 112 mg/dL (65-115); Osmolality Calculated 289 mOsm/kg (285-295); Potassium 3.9 mmol/L (3.5-5.1); Sodium 138 mmol/L (136-145); Total Bilirubin 0.4 mg/dL (0.15-1.2); Total Protein 4.8 g/dL (6.6-8.7)
[2022-02-10 09:56] LABS: Slide Review Slide Review Perform
[2022-02-10 10:04] LABS: Absolute Neutrophil 1.7 10^3/cmm (1.4-6.5); Absolute Segmented Neutrophil 1.4 10/cmm (1.6-7.1); Anisocytosis 2+; Band Neutrophils Absolute 0.2 10^3/cmm (0.0-1.2); Eosinophils 1 %; Giant Platelets Trace; Lymphocytes 25 %; Lymphocytes Absolute 0.6 10^3/cmm (1.2-3.4); Macrocytosis 2+; Microcytosis Trace; Monocytes Absolute 0.1 10^3/cmm (0.1-0.6); Ovalocytes 1+; Platelet Estimate Normal (Normal); Schistocytes Trace; Segmented Neutrophils 59 %; Total Cells Counted 100 (0-100)
== END 2022-02-27 23:59 | disposition home or self-care (01) ==
PROVIDERS: Nurse Practitioner Family; PCP Electrodiagnostic Medicine; Visit Provider Internal Medicine Hematology & Oncology
DX: C61 Malignant neoplasm of prostate (principal); C79.51 Secondary malignant neoplasm of bone
CPT/HCPCS: 36430; 36591; 80053; 82607; 82728; 83540; 83550; 84153; 85007; 85025; 86850; 86900; 86920; 96367; 96375; 96413; J1100; J1200; J1940; J2469; J3490; J7050; J8540; J9171; P9040

== ENCOUNTER 2022-02-18 08:21 | Emergency (ER) | payer BC, SELFPAY ==
--- NOTE | 2022-02-18 08:34 | XR_ITS ---
WS: [id number] Exam: XR chest 1V portable [id number] Date/Time of Exam: 02/18/2022 8:36 AM Reason For Exam: dyspnea/cough The lungs are fully inflated and clear. A left subclavian port ends in the lower one third of the SVC . Normal cardiomediastinal silhouette. No pleural effusions. There may be pleural thickening along th e lower lateral right pleural cavity. Bony structures are intact. XR/XR chest 1V portable [id number] IMPRESSION: 1. No acute cardiopulmonary finding. 2. There may be right-sided pleural thickening along the lower lateral right pl eural cavity.
--- NOTE | 2022-02-18 08:34 | ECG_ITS ---
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 Measurements Intervals [place] Rate: 65 P: 33 [place]: 162 QRS: 25 QRSD: 104 T: 44 QT: 424 QTc: 441 Interpretive Statements SINUS RHYTHM INCOMPLETE RIGHT BUNDLE BRANCH BLOCK [90+ ms QRS DURATION, TERMINAL R IN V1/V2, 40+ ms S IN I/aVL/V4/V5/V6] Compared to ECG 09/24/2021 09:19:49 First degree AV block no longer present Electronically Signed On 02-18-2022 22:27:05 CDT by Eri Charles M.D. [email or web address]
--- NOTE | 2022-02-18 08:35 | ED_ITS ---
HPI - Seizure General: Chief Complaint: Seizure Stated Complaint: seizure Time Seen by Provider: 02/18/22 08:29 Source: patient and family Mode of arrival: wheelchair Limitations: altered mental status History of Present Illness: HPI Narrative: 61-year-old male with a known history of prostate cancer with recent finding of metastatic cancer to the brain. Patient came into the ER after having a seizure. He is on dexamethasone 4 mg twice a day he is actually scheduled to begin radiation to the brain tomorrow in [place]. He has not previously had seizures. He was previously on apixaban for atrial fibrillation was recently stopped when he was found to have the seizures. Patient has blood at the mouth from biting his lip. Patient postictal on presentation. MD complaint: seizure Onset (ago): minute(s) Description of Episode: tonic-clonic movement Witnessed: Yes - by Bystander Trauma: No Seizure History: No Possible Precipitating Event: other (Prostates CA with mets to brain) Associated symptoms: Reports confusion; Deny chest pain, chills, cough, diaphoresis, fever(s), anorexia, malaise, rash, short of breath, syncope or weakness Treatments prior to arrival: none Review of Systems Const: Denies: fever(s), chills, malaise or diaphoresis ENMT: Denies: throat pain, ear or mastoid pain, nasal discharge or nasal congestion Card: Denies: chest pain, palpitations or syncope Resp: Denies: dyspnea, productive cough or non-productive cough GI: Denies: abdominal pain, nausea, vomiting, hematemesis, coffee ground emes is, diarrhea, constipation, bloating, hematochezia or melena : Denies: flank pain, difficulty urinating, dysuria, urinary frequency or urinary urgency Skin/Breast: Denies: rash or pruritus Neuro: Reports: headache(s) and confusion PFSH ED PFSH: Medical History Atrial fibrillation Chronic steroid use 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 DVT (deep venous thrombosis) Hyperlipidemia Malignant neoplasm of prostate metastatic to bone Metastasis Prostate cancer Pulmonary emboli Family History Grandfather CAD (coronary artery disease) Cancer Pancreatic Mother Cancer Breast Sister Cancer metastatic breast Family/Other Cancer Aunt - Pancreatic Father Lung disease Daughter Psychiatric illness Denies family history of Diabetes Clotting disorder Dementia Hyperlipidemia Chronic kidney disease (CKD) Suicide Anesthesia complication Bleeding disorder Hypertension Stroke Social History Smoking and tobacco status: never smoked Alcohol intake: never Physical Exam Const: GENERAL APPEARANCE: lethargic (Postictal) ORIENTATION/CONSCIOUSNESS: Yes awake and Yes lethargic (Postictal) HENMT: COMMON NORMALS: normocephalic, atraumatic and hearing grossly normal bilaterally HEAD & SCALP: normocephalic and atraumatic OTHER: Lower lobe lip left of the midline there is a small bite with no active bleeding but there is some blood about the lips and tongue Neck/C-Spine: COMMON NORMALS: no JVD Resp: COMMON NORMALS: normal respiratory effort, No retractions, No use of accessory muscles and clear to auscultation bilaterally AUSCULTATION: clear to auscultation bilaterally Cardio: COMMON NORMALS: no JVD, regular rate, regular rhythm and No murmurs present (Cardio) RATE: regular rate RHYTHM: regular rhythm GI: COMMON NORMALS: Soft to palpation and No hepatosplenomegaly present AUSCULTATION: Yes normoactive bowel sounds PALPATION: Yes Soft to palpation, No Tenderness to palpation present (GI), No Guarding due to palpation present (GI) and Yes No hepatosplenomegaly present Extremity: COMMON NORMALS: normal to inspection, capillary refill normal, no clubbing, cyanosis or edema, no calf tenderness and no pedal edema Neuro: SENSORIUM/ORIENTATION: Yes lethargic (Postictal) OTHER: Patient has generalized weakness on the rightside with a right arm drift and 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 Skin: COMMON NORMALS: no rashes or lesions noted GENERAL SKIN EXAM: no rashes or lesions noted Course Vital Signs: Vital signs: Vital Signs Pulse Rate 66 02/18/22 08:51 Respiratory Rate 16 02/18/22 08:51 Blood Pressure 136/85 02/18/22 08:41 Pulse Oximetry 93 02/18/22 08:51 MDM - Seizure MDM Narrative Medical decision making narrative: Patient initially presented he was in a postictal phase and had quite a bit of weakness on his left side that is completely resolved. He is awake and alert can recall most of the events what happened he knew he was in a car when he had the seizure. He is completely back to his normal baseline called talk to Dr. Michaels we recommend increasing his dexamethasone to 4 mg 3 times daily. We will load him with Keppra [address] Jones she concurs with medication choice recommend starting at 750 twice daily and patient like this. Patient has scheduled treatments tomorrow in [place] where he is being treated for his prostate cancer recommend that he keep that appointment as scheduled. He should notify his oncology team there that he was seen in the emergency room today. Lab Data Result diagrams: 02/18/22 08:45 02/18/22 08:45 Labs: Radiology Impressions Chest X-Ray 02/18/22 08:34 IMPRESSION: 1. No acute cardiopulmonary finding. 2. There may be right-sided pleural thickening along the lower lateral right pleural cavity. Head CT 02/18/22 08:46 IMPRESSION: 1. No significant change in the heterogeneous extra-axial mass along the LEFT frontal convexity with localized mass effect. 2. No evidence of new or progressive hemorrhage. 3. No hydrocephalus. 4. Diffuse blastic metastasis involving the bony calvarium 5. Frontal and LEFT sphenoid sinusitis appears unchanged. Shoulder X-Ray 02/18/22 10:51 IMPRESSION: 1. Mild AC joint DJD. No fracture or other significant finding. Laboratory Results WBC 3.3 10^3/uL (4.0-10.0) L 02/18/22 08:45 RBC 3.48 10^6/uL (4.1-5.3) L 02/18/22 08:45 Hgb 9.6 g/dL (11.7-16.6) L 02/18/22 08:45 Hct 32.1 % (42.0-52.0) L 02/18/22 08:45 MCV 92.2 fl (80-94) 02/18/22 08:45 MCH 27.6 pg (28.0-34.0) L 02/18/22 08:45 MCHC 29.9 g/dL (30.0-36.0) L 02/18/22 08:45 RDW 17.1 % (12.1-15.1) H 02/18/22 08:45 Plt Count 193 10^3/cmm (130-400) 02/18/22 08:45 MPV 9.5 fL (7.4-10.4) 02/18/22 08:45 Lymph % (Auto) Not Reportable 02/18/22 08:45 Webb % (Auto) Not Reportable 02/18/22 08:45 Lymph # (Auto) Not Reportable 02/18/22 08:45 Webb # (Auto) Not Reportable 02/18/22 08:45 Total Counted 100 (0-100) 02/18/22 08:45 Atypical Lymphs % 8.0 % (0-5) H 02/18/22 08:45 Absolute Neutrophils 1.8 10^3/cmm (1.4-6.5) 02/18/22 08:45 Segmented Neutrophils 49 % 02/18/22 08:45 Abs Segm Neuts (Man) 1.6 10/cmm (1.6-7.1) 02/18/22 08:45 Band Neutrophils 6.0 % 02/18/22 08:45 Abs Band Neuts (Man) 0.2 10^3/cmm (0.0-1.2) 02/18/22 08:45 Absolute Lymphocytes 0.8 10^3/cmm (1.2-3.4) L 02/18/22 08:45 Lymphocytes (Manual) 17 % 02/18/22 08:45 Monocytes (Manual) 11.0 % 02/18/22 08:45 Absolute Monocytes 0.4 10^3/cmm (0.1-0.6) 02/18/22 08:45 Eosinophils (Manual) 0 % 02/18/22 08:45 Absolute Eosinophils 0.0 10^3/cmm (0.0-0.7) 02/18/22 08:45 Basophils (Manual) Not Reportable 02/18/22 08:45 Metamyelocytes 3.0 % 02/18/22 08:45 Myelocytes 3.0 % 02/18/22 08:45 Nucleated RBCs 3.0 /100WBC (0-1) H 02/18/22 08:45 Toxic Granulation 1+ H 02/18/22 08:45 Platelet Estimate Normal (Normal) 02/18/22 08:45 Giant Platelets Trace 02/18/22 08:45 Polychromasia Trace 02/18/22 08:45 Anisocytosis 2+ H 02/18/22 08:45 Microcytosis 2+ H 02/18/22 08:45 Macrocytosis 1+ H 02/18/22 08:45 Ovalocytes 1+ H 02/18/22 08:45 Schistocytes Trace 02/18/22 08:45 Sodium 134 mmol/L (136-145) L 02/18/22 08:45 Potassium 4.4 mmol/L (3.5-5.1) 02/18/22 08:45 Chloride 101 mmol/L (98-107) 02/18/22 08:45 Carbon Dioxide 17 mmol/L (22-29) L 02/18/22 08:45 Anion Gap 20.4 (5-19) H 02/18/22 08:45 BUN 29 mg/dL (8-23) H 02/18/22 08:45 Creatinine 1.1 mg/dL (0.7-1.2) 02/18/22 08:45 GFR Calculation 67.8 mL/min (90-130) L 02/18/22 08:45 Glucose 113 mg/dL (65-115) 02/18/22 08:45 Calculated Osmolality 285 mOsm/kg (285-295) 02/18/22 08:45 Calcium 8.2 mg/dL (8.5-10.5) L 02/18/22 08:45 Magnesium 2.2 mg/dL (1.7-2.3) 02/18/22 08:45 Total Bilirubin 0.4 mg/dL (0.15-1.2) 02/18/22 08:45 AST 18 U/L (0-40) 02/18/22 08:45 ALT 15 U/L (0-41) 02/18/22 08:45 Alkaline Phosphatase 272 IU/L (40-130) H 02/18/22 08:45 Creatine Kinase 54 U/L (39-308) 02/18/22 08:45 Total Protein 5.8 g/dL (6.6-8.7) L 02/18/22 08:45 Albumin 3.6 g/dL (3.5-5.2) 02/18/22 08:45 Globulin 2.2 g/dL (1.3-4.6) 02/18/22 08:45 Urine Color Yellow (Yellow) 02/18/22 08:56 Urine Appearance Clear (CLEAR) 02/18/22 08:56 Urine pH 5 (5-7) 02/18/22 08:56 Ur Specific Kinder 1.015 (1.005-1.030) 02/18/22 08:56 Urine Protein Neg (Negative) 02/18/22 08:56 Urine Glucose (UA) Norm (Normal) 02/18/22 08:56 Urine Ketones 1+ (Negative) H 02/18/22 08:56 Urine Blood Neg (Negative) 02/18/22 08:56 Urine Nitrate Negative (Negative) 02/18/22 08:56 Urine Bilirubin Neg (Negative) 02/18/22 08:56 Urine Urobilinogen 1 mg/dL (Negative) H 02/18/22 08:56 Ur Leukocyte Esterase Negative (Negative) 02/18/22 08:56 Discharge Plan Discharge Patient Disposition: Home Clinical Impression: Seizure, Malignant neoplasm of prostate metastatic to bone, Brain metastasis, Atrial fibrillation Condition: Stable Prescriptions: New levetiracetam 750 mg tablet 750 mg PO BID Qty: 60 0RF Changed dexamethasone [Decadron] 4 mg tablet 4 mg PO TID Qty: 20 0RF No Action lactobacillus combination no.8 1 tab PO QAM 0RF Eliquis 5 mg tablet 2.5 mg PO BID 0RF zolpidem 5 mg tablet 5 mg PO BEDTIME 0RF gabapentin 300 mg capsule 300 mg PO BEDTIME 0RF furosemide 20 mg tablet 20 mg PO QAM 0RF ondansetron 4 mg tablet,disintegrating 4 mg PO Q8H PRN (Reason: nausea and vomiting) Qty: 30 1RF multivitamin [Multiple Vitamins] Tablet 1 tab PO BEDTIME 0RF hydrocodone-acetaminophen 5-325 mg tablet 1 tab PO Q6H PRN (Reason: Pain) 0RF tamsulosin 0.4 mg capsule 0.4 mg PO BID 0RF pantoprazole 40 mg tablet,delayed release (DR/EC) 40 mg PO BEDTIME 0RF meloxicam 7.5 mg tablet 7.5 mg PO BEDTIME 0RF prochlorperazine maleate [Compazine] 10 mg Tablet 10 mg PO Q4H PRN (Reason: Mild Nausea) Qty: 30 3RF lorazepam 1 mg Tablet 0.5 - 1 mg PO Q6H PRN (Reason: Severe Nausea) Qty: 30 3RF albuterol sulfate 2.5 mg /3 mL (0.083 %) solution for nebulization 2.5 mg inhalation Q6H PRN (Reason: Shortness Of Breath) 0RF vitamin B complex Tablet 1 tab PO QAM 0RF ipratropium bromide 0.02 % solution See Rx Instructions .ROUTE .COMPLEX 0RF Rx Instructions: one vial qid prn Vitamin B-12 1 tab PO QAM 0RF amiodarone 200 mg tablet 200 mg PO BEDTIME 0RF prednisone 5 mg tablet See Rx Instructions .ROUTE .COMPLEX 0RF Rx Instructions: 5 mg orally bid Take on days 1-21 of each cycle dexamethasone 4 mg tablet See Rx Instructions .ROUTE .COMPLEX 0RF Rx Instructions: 8 mg orally bid the day before treatment, day of treatment and day after treatment potassium chloride 20 mEq tablet extended release 20 meq PO BEDTIME 0RF Discharge Orders: Discharge ED (Routine); Ordered 02/18/22 Ordered By: Cameron Plummer Referrals: Jay Baker DO [Primary Care Provider] - Discharge Diet: Usual diet Discharge Activity: Increase activity as tolerated Patient Instructions: Opioid Safety Activity Restrictions/Additional Instructions: Start p.o. Kevaleryra tonight take 1 tablet twice daily. Follow-up in [place] as scheduled. Return if there are recurrent problems. Coding Level of Care Code ED Electronic Maintenance Supervisor for Garrett Fwd Exam Comprehensive
[2022-02-18 08:41] VITALS: BP 136/85; PULSE 63; RESP 23; O2SAT 95; BMI 32.5
--- NOTE | 2022-02-18 08:46 | CT_ITS ---
WS: [id number] CT HEAD TECHNIQUE: Noncontrast CT of the head obtained from the skullbase to the vertex. CLINICAL INFORMATION: SEIZURE COMPARISON: MRI February 10, [address] February 10, 2022. DLP: [address] scans at [facility] use at least one of these dose optimization techniques: automated e xposure control; mA and/or kV adjustment per patient size (includes targeted exams where dose is matc hed to clinical indication); or iterative reconstruction. FINDINGS: No significant change in the heterogeneous extra-axial mass overlying the LEFT parietal convexity. No evidence of new or progressive hemorrhage. Stable areas of increased attenuation unchanged from prev ious. Associated mass effect is unchanged. This abuts the sagittal sinus unchanged. Localized mass ef fect at the LEFT parietal convexity appears stable. No hydrocephalus. Additional smaller areas of ext ra-axial disease involving the LEFT frontal lobe anteriorly and RIGHT frontal lobe laterally better s een on the prior MRI. Normal posterior fossa and 4th ventricle. Diffuse blastic metastasis involving the visualized calvarium unchanged in appearance. Opacification LEFT sphenoid sinus. Opacification the frontal sinuses and anterior ethmoid air cells. Mastoid air ce lls appear well aerated. CT/CT head wo con* [id number] IMPRESSION: 1. No significant change in the heterogeneous extra-axial mass along the LEFT frontal convexity with localized mass effect. 2. No evidence of new or progressive hemorrhage. 3. No hydrocephalus. 4. Diffuse blastic metastasis involving the bony calvarium 5. Frontal and LEFT sphenoid sinusitis appears unchanged.
[2022-02-18 08:51] VITALS: PULSE 66; RESP 16; O2SAT 93
[2022-02-18 08:54] LABS: Hematocrit 32.1 % (42.0-52.0); Hemoglobin 9.6 g/dL (11.7-16.6); Mean Corpuscular HGB Conc 29.9 g/dL (30.0-36.0); Mean Corpuscular Hemoglobin 27.6 pg (28.0-34.0); Mean Corpuscular Volume 92.2 fl (80-94); Mean Platelet Volume 9.5 fL (7.4-10.4); Platelet Count 193 10^3/cmm (130-400); Red Blood Count 3.48 10^6/uL (4.1-5.3); Red Cell Distribution Width 17.1 % (12.1-15.1); White Blood Count 3.3 10^3/uL (4.0-10.0)
[2022-02-18 09:05] LABS: Add Urine Microscopic? NO; Charge for UA Resulting for Rev
[2022-02-18 09:10] LABS: Alanine Aminotransferase 15 U/L (0-41); Albumin Level 3.6 g/dL (3.5-5.2); Alkaline Phosphatase 272 IU/L (40-130); Anion Gap 20.4 (5-19); Aspartate Amino Transferase 18 U/L (0-40); Blood Urea Nitrogen 29 mg/dL (8-23); Calcium 8.2 mg/dL (8.5-10.5); Carbon Dioxide 17 mmol/L (22-29); Chloride 101 mmol/L (98-107); Creatine Phosphokinase 54 U/L (39-308); Globulin 2.2 g/dL (1.3-4.6); Glomerular Filtration Rate 67.8 mL/min (90-130); Glucose 113 mg/dL (65-115); Magnesium 2.2 mg/dL (1.7-2.3); Osmolality Calculated 285 mOsm/kg (285-295); Potassium 4.4 mmol/L (3.5-5.1); Sodium 134 mmol/L (136-145); Total Bilirubin 0.4 mg/dL (0.15-1.2); Total Protein 5.8 g/dL (6.6-8.7)
[2022-02-18 09:30] LABS: Bilirubin Urine Neg (Negative); Blood Urine Neg (Negative); Glucose Urine UA Norm (Normal); Ketones Urine 1+ (Negative); Leukocyte Esterase Urine Negative (Negative); Nitrate Urine Negative (Negative); Protein Urine Neg (Negative); Specific Gravity, Urine 1.015 (1.005-1.030); Urine Appearance Clear (CLEAR); Urine Color Yellow (Yellow); Urobilinogen Urine 1 mg/dL (Negative); pH Urine 5 (5-7)
[2022-02-18 09:54] LABS: Slide Review Slide Review Perform
[2022-02-18 09:55] LABS: Absolute Neutrophil 1.8 10^3/cmm (1.4-6.5); Absolute Segmented Neutrophil 1.6 10/cmm (1.6-7.1); Band Neutrophils Absolute 0.2 10^3/cmm (0.0-1.2); Eosinophils 0 %; Giant Platelets Trace; Lymphocytes 17 %; Lymphocytes Absolute 0.8 10^3/cmm (1.2-3.4); Monocytes Absolute 0.4 10^3/cmm (0.1-0.6); Platelet Estimate Normal (Normal); Segmented Neutrophils 49 %; Total Cells Counted 100 (0-100)
[2022-02-18 09:56] LABS: Anisocytosis 2+; Macrocytosis 1+; Microcytosis 2+; Ovalocytes 1+; Polychromasia Trace
[2022-02-18 09:58] LABS: Schistocytes Trace; Toxic Granulation 1+
[2022-02-18] MEDS: dexamethasone 10 mg/mL INJ IVP (10:39)
--- NOTE | 2022-02-18 10:51 | XR_ITS ---
WS: [id number] Exam: XR shoulder RT min 2V* [id number] Date/Time of Exam: 02/18/2022 10:56 AM Reason For Exam: pain No fracture or dislocation. Mild DJD at the AC joint. Normal soft tissues. Central line partially vis ualized in the region of the SVC. XR/XR shoulder RT min 2V* [id number] IMPRESSION: 1. Mild AC joint DJD. No fracture or other significant finding.
[2022-02-18 13:01] VITALS: BP 110/64; PULSE 53; RESP 16; O2SAT 97
== END 2022-02-18 12:24 | disposition home or self-care (01) ==
PROVIDERS: Emergency Provider Family Medicine; PCP Electrodiagnostic Medicine
DX: R56.9 Unspecified convulsions (principal); I48.91 Unspecified atrial fibrillation; C61 Malignant neoplasm of prostate; C79.51 Secondary malignant neoplasm of bone; C79.31 Secondary malignant neoplasm of brain; Z79.01 Long term (current) use of anticoagulants; E11.9 Type 2 diabetes mellitus without complications; E78.5 Hyperlipidemia, unspecified; Z86.711 Personal history of pulmonary embolism
CPT/HCPCS: 70450; 71045; 73030; 80053; 81003; 82550; 83735; 85007; 85025; 93005; 96365; 96375; 99284; J1100; J1953

== ENCOUNTER 2022-03-15 09:59 | Emergency (ER) | payer BC, SELFPAY ==
[2022-03-15 10:01] VITALS: TEMP 36.6; BMI 31.5
--- NOTE | 2022-03-15 10:16 | CTR_ITS ---
PROCEDURE INFORMATION: Exam: CT Head Without Contrast Exam date and time: 03/15/2022 10:59 AM Age: 61 years old Clinical indication: Numbness / parasthesia and weakness, extremity and weakness, facial; Right; Left; Patient HX: History of stage 4 prostate cancer; Additional info: Symptoms of acute stroke TECHNIQUE: Imaging protocol: Computed tomography of the head without contrast. Radiation optimization: All CT scans at this facility use at least one of these dose optimization techniques: automated exposure control; mA and/or kV adjustment per patient size (includes targeted exams where dose is matched to clinical indication); or iterative reconstruction. COMPARISON: CT head wo con* [id number] 02/18/2022 8:44 AM RADIATION DOSE METRICS: Total DLP (mGy-cm): 1119.48 FINDINGS: Brain: Redemonstrated left parietal extra-axial mass with similar appearance of curvilinear increased attenuation within the adjacent brain parenchyma. No new areas of edema, mass effect, or midline shift. No new or progressing areas of intracranial hemorrhage. Cerebral ventricles: No ventriculomegaly. Paranasal sinuses: Opacified left frontal and sphenoid sinuses and partially opacified ethmoid sinuses. Mastoid air cells: Visualized mastoid air cells are well aerated. Bones/joints: Heterogeneous sclerotic appearance of the skull consistent with multifocal osseous metastatic disease. No acute fracture. Soft tissues: Unremarkable. CT/CT head wo con* [id number] IMPRESSION: Stable exam, no acute intracranial abnormality.
--- NOTE | 2022-03-15 10:16 | ECG_ITS ---
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 Measurements Intervals Dennis Rate: 70 P: 27 NE: 201 QRS: 19 QRSD: 96 T: 44 QT: 400 QTc: 433 Interpretive Statements SINUS RHYTHM INCOMPLETE RIGHT BUNDLE BRANCH BLOCK [90+ ms QRS DURATION, TERMINAL R IN V1/V2, 40+ ms S IN I/aVL/V4/V5/V6] INTERPRETATION BASED ON A DEFAULT AGE OF 40 YEARS Compared to ECG 02/18/2022 08:52:56 No significant changes Electronically Signed On 03-17-2022 8:11:03 CDT by Jimy Ahmadi M.D. [email or web address]
--- NOTE | 2022-03-15 10:17 | ED_ITS ---
HPI - Neuro Symptoms/Deficit General: Chief Complaint: Neuro Symptoms/Deficit Stated Complaint: Stroke like symptoms Time Seen by Provider: 03/15/22 10:07 Source: patient and family (Spouse) Limitations: no limitations History of Present Illness: This patient presents to the emergency department accompanied by his spouse from home. They are here because they are concerned about his dizziness and lack of ability to stand or that has progressed over the past 24 hours or more. He has had apparently been recently treated with r adiation therapy at [place] because of a what appears to be a metastatic brain tumor. Primary is thought to be prostate he is approximately 4 years out from that diagnosis. He apparently has had a low platelet count which makes the concerned. She states that they were recently at the radiation oncologist last week and they were concerned about his platelet count and are uncertain why he is low. He denies any falls or head injury. He denies any difficulty with headache. He denies any difficulty with speech. He does have some right upper extremity discoordination which has been present for some time. There is a history of small pulmonary emboli but these are being not treated currently. Timing confirmed by: spouse Associated symptoms: Deny chest pain, headache(s), nausea or vomiting Review of Systems Const: Denies: fever(s), chills or body aches Eyes: Reports: blurry vision (Over the last several days.) ENMT: Denies: odynophagia or nasal congestion Card: Denies: chest pain, palpitations, irregular heart rhythm or edema Resp: Denies: dyspnea, productive cough or non-productive cough GI: Denies: abdominal pain, nausea, vomiting or diarrhea : Denies: flank pain, difficulty urinating, dysuria or urinary frequency Musc: Denies: neck pain, back pain, extremity pain or extremity swelling Skin/Breast: Denies: rash or pruritus Neuro: Reports: difficulty walking and dizziness; Denies: headache(s), numbness in extremities, Slurred speech present, difficulty communicating thoughts or seizure-like activity Psych: Denies: anxiety or depression Endo: Denies: polyuria or polydipsia [place]/Lymph: Denies: easy bruising or easy bleeding PFS ED PFSH: Medical History Atrial fibrillation Chronic steroid use 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 DVT (deep venous thrombosis) Hyperlipidemia Malignant neoplasm of prostate metastatic to bone Metastasis Prostate cancer Pulmonary emboli Family History Grandfather CAD (coronary artery disease) Cancer Pancreatic Mother Cancer Breast Sister Cancer metastatic breast Family/Other Cancer Aunt - Pancreatic Father Lung disease Daughter Psychiatric illness Denies family history of Diabetes Clotting disorder Dementia Hyperlipidemia Chronic kidney disease (CKD) Suicide Anesthesia complication Bleeding disorder Hypertension Stroke Social History Smoking and tobacco status: never smoked Alcohol intake: never NIH stroke score NIHSS: Level Of Consciousness - 1a: 0 Level Of Consciousness Questions - 1b: Both Correct Level Of Consciousness Commands - 1c: Both Correct Best Gaze - 2: Normal Visual Fontenot - 3: No Visual Loss Facial Palsy - 4: Normal Motor Arm Right - 5: No Drift Motor Arm Left - 5: No Drift Motor Leg Right - 6: No Drift Motor Leg Left - 6: No Drift Limb Ataxia - 7: Absent Sensory - 8: Normal Best Language - 9: No Aphasia Dysarthia - 10: Normal Extinction And Inattention - 11: 0 Score: Total Score: 0 Physical Exam Narrative: EXAM NARRATIVE: He is alert no acute distress. Speech is normal. Const: COMMON NORMALS: no acute distress, patient oriented x3 and healthy appearing GENERAL APPEARANCE: cooperative and comfortable NUTRITIONAL APPEARANCE: overweight HENMT: COMMON NORMALS: normocephalic, atraumatic and Normal nasal mucous membranes and turbinates present HEAD & SCALP: normocephalic and atraumatic FACE & SINUS: normal facial exam and face symmetric NOSE: Normal nasal mucous membranes and turbinates present Eye: COMMON NORMALS: Equal, round and reactive pupils present, EOMs intact bilaterally and no scleral icterus VISUAL ACUITY: Yes acuity normal (He is able to read my name tag at 6 feet.) PUPIL: Yes Equal, round and reactive pupils present Neck/C-Spine: COMMON NORMALS: full ROM, supple and No carotid bruits Chest: COMMONS NORMALS: normal inspection of the chest and normal palpation of entire chest wall Resp: COMMON NORMALS: normal respiratory effort, No use of accessory muscles and clear to auscultation bilaterally AUSCULTATION: clear to auscultation bilaterally Cardio: COMMON NORMALS: regular rhythm, No murmurs present (Cardio) and Peripheral pulses 2+ throughout RHYTHM: regular rhythm PERIPHERAL PULSES: Peripheral pulses 2+ throughout GI: COMMON NORMALS: Soft to palpation and non-tender PALPATION: Yes Soft to palpation : COMMON NORMALS: Yes no CVA tenderness BLADDER/KIDNEY EXAM: Yes no CVA tenderness Back/Pelvis: COMMON NORMALS: no CVA tenderness, thoracic and lumbar spine normal to inspection and thoraco-lumbar ROM normal Extremity: COMMON NORMALS: normal to inspection, full ROM, capillary refill normal, no calf tenderness and no pedal edema Neuro: COMMON NORMALS: patient oriented x3 and moves all extremities (Right upper extremity does not have complete muscle control but is able to ) COORDINATION/BALANCE: [id number] test normal and [id number] test normal MOTOR EXAM: no tremor noted and Normal motor muscle tone present throughout COORDINATION: [id number] test normal and [id number] test normal Psych: COMMON NORMALS: mental status grossly normal and cooperative Skin: COMMON NORMALS: no rashes or lesions noted and turgor normal GENERAL SKIN EXAM: no rashes or lesions noted and turgor normal Course Reevaluation(s): Reevaluation #1: Patient's received 1 L of fluids. He has produced urine and appears to be concentrated. He states he subjectively feels better and is drinking oral fluids. I think we will give him a second liter and reassess. I did discuss continued observation in the hospital versus discharge after the second liter of fluids and he prefers the former rather than the latter. Time: 14:36 Reevaluation #2: Second liter is almost completely infused. He is significantly improved subjectively. He is very adamant that he wants to go home and I think that is reasonable. Certainly suggest a significant volume depletion as a likely etiology. He never had any focal findings by history or and clinical examination and in his imaging is reassuring. His labs while not normal are consistent with his disease and treatment condition and status. He is not have any evidence of ongoing bleeding etc. He and both spouse are very comfortable with the plan. Return precautions and additional follow-up were discussed as well. Walker was ordered to aid in ambulation at home. Time: 15:48 Consultations: Consultation #1: I discussed with oncology on-call at [facility] Dr. Tong. We reviewed his current findings in light of his oncology evaluation and ongoing care at that facility. At least at this time it does not appear he is having any active bleeding and certainly no evidence of spontaneous intracranial hemorrhage etc. We reviewed the plan of hydrating him in the emergency department and then reevaluating versus more prolonged observation either at [facility] or at this facility. We will reevaluate and then to make a disposition at that time. Time: 13:23 Vital Signs: Vital signs: Vital Signs Temperature 97.8 F 03/15/22 10:01 MDM - Neuro Symptoms/Deficit Medical Decision Making Patient with a known history of metastatic prostate cancer who is ongoing treatment by oncology at [facility] in [place] presented with essentially global weakness. Work-up was significant in the found evidence of pancytopenia consistent with his disease state and after consult consulting oncology at [facility] consistent with his treatment. No evidence of ongoing bleeding. He was rehydrated in the emergency department and had a good clinical response. He is adamant on being discharged I think is reasonable and he has close follow-up both locally as well as in [place]. Medical Records I reviewed the patient's medical records. Lab Data I reviewed the patient's lab results. : 03/15/22 10:57 03/15/22 10:[address] 03/15/22 10:16 IMPRESSION: Stable exam, no acute intracranial abnormality. Laboratory Results WBC 1.7 10^3/uL (4.0-10.0) L 03/15/22 10:57 RBC 3.16 10^6/uL (4.1-5.3) L 03/15/22 10:57 Hgb 9.1 g/dL (11.7-16.6) L 03/15/22 10:57 Hct 28.7 % (42.0-52.0) L 03/15/22 10:57 MCV 90.8 fl (80-94) 03/15/22 10:57 MCH 28.8 pg (28.0-34.0) 03/15/22 10:57 MCHC 31.7 g/dL (30.0-36.0) 03/15/22 10:57 RDW 17.8 % (12.1-15.1) H 03/15/22 10:57 Plt Count 27 10^3/cmm (130-400) L* 03/15/22 10:57 MPV 11.4 fL (7.4-10.4) H 03/15/22 10:57 Neut % (Auto) 89.9 % 03/15/22 10:57 Lymph % (Auto) 5.3 % 03/15/22 10:57 Brantley % (Auto) 1.8 % 03/15/22 10:57 Eos % (Auto) 0.0 % 03/15/22 10:57 Baso % (Auto) 0.0 % 03/15/22 10:57 Neut # (Auto) 1.52 10^3/uL (1.8-7.7) L 03/15/22 10:57 Lymph # (Auto) 0.1 10^3/uL (0.8-4.8) L 03/15/22 10:57 Brantley # (Auto) 0.0 10^3/uL (0.2-0.9) L 03/15/22 10:57 Eos # (Auto) 0.0 10^3/uL (0.0-0.8) 03/15/22 10:57 Baso # (Auto) 0.0 10^3/uL (0.0-0.1) 03/15/22 10:57 Nucleated RBC % (auto) 1.2 % 03/15/22 10:57 Nucleated RBCs # 0.0 /100WBC 03/15/22 10:57 PT 13.80 SECONDS (12.1-14.9) 03/15/22 10:57 INR 1.03 (0.8-1.2) 03/15/22 10:57 APTT 33.1 SECONDS (23.9-36.7) 03/15/22 10:57 Sodium 135 mmol/L (136-145) L 03/15/22 10:57 Potassium 4.9 mmol/L (3.5-5.1) 03/15/22 10:57 Chloride 100 mmol/L (98-107) 03/15/22 10:57 Carbon Dioxide 22 mmol/L (22-29) 03/15/22 10:57 Anion Gap 17.9 (5-19) 03/15/22 10:57 BUN 48 mg/dL (8-23) H 03/15/22 10:57 Creatinine 1.5 mg/dL (0.7-1.2) H 03/15/22 10:57 GFR Calculation 47.4 mL/min (90-130) L 03/15/22 10:57 Glucose 114 mg/dL (65-115) 03/15/22 10:57 POC Glucose 140 mg/dL (70-110) H 03/15/22 10:49 Calculated Osmolality 293 mOsm/kg (285-295) 03/15/22 10:57 Calcium 6.6 mg/dL (8.5-10.5) L 03/15/22 10:57 Total Bilirubin 0.7 mg/dL (0.15-1.2) 03/15/22 10:57 AST 166 U/L (0-40) H 03/15/22 10:57 ALT 29 U/L (0-41) 03/15/22 10:57 Alkaline Phosphatase 475 IU/L (40-130) H 03/15/22 10:57 Total Protein 5.0 g/dL (6.6-8.7) L 03/15/22 10:57 Albumin 2.7 g/dL (3.5-5.2) L 03/15/22 10:57 Globulin 2.3 g/dL (1.3-4.6) 03/15/22 10:57 EKG Data EKG 1: I personally reviewed and interpreted this EKG as follows: EKG interpretation time: 10:30 Interpretation: EKG shows sinus rhythm of 70 bpm. WV interval is 201 ms. QRS duration is normal. QTc. Normal axis. Does have evidence of some baseline irritability noted in isolated limb leads III and V2. Discharge Plan Discharge Patient Disposition: Home Clinical Impression: Prostate cancer, Fluid volume depletion, Pancytopenia Condition: Stable Prescriptions: No Action gabapentin 300 mg capsule 300 mg PO BEDTIME 0RF furosemide 20 mg tablet 20 mg PO QAM 0RF ondansetron 4 mg tablet,disintegrating 4 mg PO Q8H PRN (Reason: nausea and vomiting) Qty: 30 1RF multivitamin [Multiple Vitamins] Tablet 1 tab PO BEDTIME 0RF hydrocodone-acetaminophen 5-325 mg tablet 2 tab PO Q8H PRN (Reason: Pain) 0RF tamsulosin 0.4 mg capsule 0.4 mg PO BID 0RF pantoprazole 40 mg tablet,delayed release (DR/EC) 40 mg PO BEDTIME 0RF prochlorperazine maleate [Compazine] 10 mg Tablet 10 mg PO Q4H PRN (Reason: Mild Nausea) Qty: 30 3RF lorazepam 1 mg Tablet 0.5 - 1 mg PO Q6H PRN (Reason: Severe Nausea) Qty: 30 3RF albuterol sulfate 2.5 mg /3 mL (0.083 %) solution for nebulization 2.5 mg inhalation Q6H PRN (Reason: Shortness Of Breath) 0RF cyanocobalamin (vitamin B-12) [Vitamin B-12] 1,000 mcg Tablet 1,000 mcg PO DAILY 0RF vitamin B complex Tablet 1 tab PO QAM 0RF amiodarone 200 mg tablet 200 mg PO BEDTIME 0RF prednisone 5 mg tablet See Rx Instructions .ROUTE .COMPLEX 0RF Rx Instructions: 5 mg orally bid Take on days 1-21 of each cycle potassium chloride 20 mEq tablet extended release 20 meq PO BEDTIME 0RF Decadron 4 mg tablet 6 mg PO .TAPERING DOSE 0RF Acidophilus Capsule 5,000 mmu cells PO DAILY 0RF memantine 5 mg Tablet 5 mg PO QID 0RF ramelteon 8 mg Tablet 8 mg PO BEDTIME 0RF levetiracetam 750 mg tablet 750 mg PO BID Qty: 60 0RF Discharge Orders: Discharge ED (Routine); Ordered 03/15/22 Ordered By: Ted Thomas Referrals: Jay Baker DO [Primary Care Provider] - Discharge Diet: Usual diet Discharge Activity: Use walker/crutches as instructed Patient Instructions: Opioid Safety Activity Restrictions/Additional Instructions: Continue all your usual medications. Return as directed on Thursday for repeat blood count. If you develop any new, persistent or worsening symptoms at any time return to this emergency department for reevaluation. Use your walker to help with stability while ambulating. 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
--- NOTE | 2022-03-15 10:55 | PC.NURSE ---
pt placed on continuous spo2, nibp, and cm.
[2022-03-15 11:08] LABS: Glucose Point of Care 140 mg/dL (70-110)
[2022-03-15 11:10] LABS: Hematocrit 28.7 % (42.0-52.0); Hemoglobin 9.1 g/dL (11.7-16.6); Lymphocytes # 0.1 10^3/uL (0.8-4.8); Lymphocytes % 5.3 %; Mean Corpuscular HGB Conc 31.7 g/dL (30.0-36.0); Mean Corpuscular Hemoglobin 28.8 pg (28.0-34.0); Mean Corpuscular Volume 90.8 fl (80-94); Monocytes % 1.8 %; Neutrophils # 1.52 10^3/uL (1.8-7.7); Neutrophils % 89.9 %; Nucleated Red Blood Cells % 1.2 %; Red Blood Count 3.16 10^6/uL (4.1-5.3); Red Cell Distribution Width 17.8 % (12.1-15.1); White Blood Count 1.7 10^3/uL (4.0-10.0)
[2022-03-15 11:22] LABS: INR 1.03 (0.8-1.2)
[2022-03-15 11:23] LABS: Partial Thromboplastin Time 33.1 SECONDS (23.9-36.7)
[2022-03-15 11:34] LABS: Alanine Aminotransferase 29 U/L (0-41); Albumin Level 2.7 g/dL (3.5-5.2); Alkaline Phosphatase 475 IU/L (40-130); Anion Gap 17.9 (5-19); Aspartate Amino Transferase 166 U/L (0-40); Blood Urea Nitrogen 48 mg/dL (8-23); Calcium 6.6 mg/dL (8.5-10.5); Carbon Dioxide 22 mmol/L (22-29); Chloride 100 mmol/L (98-107); Globulin 2.3 g/dL (1.3-4.6); Glomerular Filtration Rate 47.4 mL/min (90-130); Glucose 114 mg/dL (65-115); Osmolality Calculated 293 mOsm/kg (285-295); Potassium 4.9 mmol/L (3.5-5.1); Sodium 135 mmol/L (136-145); Total Bilirubin 0.7 mg/dL (0.15-1.2)
[2022-03-15 11:40] LABS: Mean Platelet Volume 11.4 fL (7.4-10.4)
[2022-03-15 11:41] LABS: Slide Review Slide Review Perform
[2022-03-15 11:42] LABS: Platelet Count 27 10^3/cmm (130-400)
[2022-03-15] MEDS: lactated ringers 1,000 ML 999 ML IV ×2 (12:45→14:53)
--- NOTE | 2022-03-15 14:34 | PC.NURSE ---
PER DR. RAGLAND VO WATER PROVIDED TO PT. DR. RAGLAND AT BEDSIDE WITH PT.
[2022-03-15 15:00] VITALS: BP 105/68; PULSE 68; O2SAT 95
[2022-03-15 16:00] VITALS: BP 121/79; PULSE 70; O2SAT 95
[2022-03-15 16:26] VITALS: BP 121/79; PULSE 87; RESP 17; TEMP 36.8; O2SAT 97
--- NOTE | 2022-03-17 11:50 | DCPLANNER ---
ship manager had message to help patient get a walker. patient was transferred to [place], family independence case manager unable to get walker at this time.
== END 2022-03-15 16:34 | disposition home or self-care (01) ==
PROVIDERS: Emergency Provider Emergency Medicine; PCP Electrodiagnostic Medicine
DX: E86.9 Volume depletion, unspecified (principal); D61.818 Other pancytopenia; C61 Malignant neoplasm of prostate; E11.9 Type 2 diabetes mellitus without complications; E78.5 Hyperlipidemia, unspecified; Z85.830 Personal history of malignant neoplasm of bone
CPT/HCPCS: 36416; 70450; 80053; 82962; 85025; 85610; 85730; 93005; 99285

== ENCOUNTER 2022-03-16 12:59 | Emergency (ER) | payer BC, SELFPAY ==
[2022-03-16] VITALS (7 sets, daily range): BP systolic 99–123; BP diastolic 72–88; PULSE 75–102; RESP 16–31; O2SAT 91–95
--- NOTE | 2022-03-16 13:09 | W.ED.CHESTPA ---
HPI - Chest Pain General: Chief Complaint: Chest Pain Stated Complaint: cp, weakness Time Seen by Provider: 03/16/22 13:02 Source: patient and EMS Mode of arrival: EMS Limitations: no limitations History of Present Illness: This patient returns to the emergency department. He was seen here yesterday because of generalized weakness and found to be volume depleted. He has a history of metastatic prostate cancer as well as small pulmonary emboli that were discovered while in [place]. They were not elected to be treated due to his thrombocytopenia and pancytopenia. He was also not hypoxic and otherwise clinically stable. He received volume depletion yesterday and we consulted with oncology at [facility] where he gets his treatments. Patient felt significantly better at the end of his emergency department evaluation and treatment and elected to go home. Today he has returned because of chest pain. He states he had left-sided chest pain when he awoke this morning. He states he ate breakfast and otherwise carried on in his usual activities of daily living but stated the pain in his left chest bothers him when he tries to breathe or move, he tries to get up and walk it hurts. He denies any known falls or trauma. He denies shortness of breath. He states it just hurts when he takes a deep breath. MD complaint: chest pain Onset: during rest Pain location: left chest Pain radiation: none Severity: moderate Quality: aching and sharp Relieving factors: rest Exacerbating factors: palpation and movement Associated symptoms: Deny abdominal pain, fever(s), nausea, palpitations, syncope or vomiting Review of Systems Const: Denies: fever(s), chills or body aches Eyes: Denies: change in vision ENMT: Denies: odynophagia Card: Reports: chest pain; Denies: palpitations, irregular heart rhythm, syncope or pre-syncope Resp: Reports: pain on inspiration; Denies: productive cough, non-productive cough, wheezing or hemoptysis GI: Denies: abdominal pain, nausea, vomiting or diarrhea : Denies: flank pain, difficulty urinating, dysuria or urinary frequency Musc: Denies: neck pain, back pain or extremity pain Skin/Breast: Denies: rash or pruritus Neuro: Denies: headache(s) Endo: Denies: polyuria, polydipsia or tired all the time Benjamín/Lymph: Reports: easy bruising [facility] ED PFSH: Medical History Atrial fibrillation Chronic steroid use 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 DVT (deep venous thrombosis) Hyperlipidemia Malignant neoplasm of prostate metastatic to bone Metastasis Prostate cancer Pulmonary emboli Family History Grandfather CAD (coronary artery disease) Cancer Pancreatic Mother Cancer Breast Sister Cancer metastatic breast Family/Other Cancer Aunt - Pancreatic Father Lung disease Daughter Psychiatric illness Denies family history of Diabetes Clotting disorder Dementia Hyperlipidemia Chronic kidney disease (CKD) Suicide Anesthesia complication Bleeding disorder Hypertension Stroke Social History Smoking and tobacco status: never smoked Alcohol intake: never Physical Exam Narrative: EXAM NARRATIVE: The patient is alert and interactive. He does complain of pain when moved from EMS cot to the bed. Const: COMMON NORMALS: no acute distress and patient oriented x3 GENERAL APPEARANCE: cooperative ORIENTATION/CONSCIOUSNESS: Yes awake HENMT: COMMON NORMALS: normocephalic, atraumatic, moist oral mucous membranes and oropharynx normal HEAD & SCALP: normocephalic and atraumatic Eye: COMMON NORMALS: Equal, round and reactive pupils present, EOMs intact bilaterally and conjunctivae normal CONJUNCTIVA: Yes conjunctivae normal PUPIL: Yes Equal, round and reactive pupils present Neck/C-Spine: COMMON NORMALS: full ROM, no lymphadenopathy, no JVD and No carotid bruits Chest: OTHER: He has a [id number] in the right chest without any redness erythema or drainage. The right chest is nontender. The left chest is tender to palpation particularly in the region of the left lateral and anterior chest. No subcutaneous emphysema, crepitance, ecchymosis noted. Resp: COMMON NORMALS: normal respiratory effort, No use of accessory muscles and clear to auscultation bilaterally EFFORT & INSPECTION: Yes able to speak in complete sentences AUSCULTATION: clear to auscultation bilaterally Cardio: COMMON NORMALS: no JVD, regular rate, No murmurs present (Cardio) and Peripheral pulses 2+ throughout RATE: regular rate PERIPHERAL PULSES: Peripheral pulses 2+ throughout GI: COMMON NORMALS: Normal to inspection, nondistended, normoactive bowel sounds present, Soft to palpation and non-tender PALPATION: Yes Soft to palpation : COMMON NORMALS: Yes no CVA tenderness BLADDER/KIDNEY EXAM: Yes no CVA tenderness Back/Pelvis: COMMON NORMALS: no CVA tenderness, thoracic and lumbar spine normal to inspection and no thoracic nor lumbar tenderness Extremity: COMMON NORMALS: normal to inspection, full ROM and capillary refill normal NARRATIVE EXTREMITY EXAM: He has limited abduction of the left glenohumeral joint but is able to move his left upper extremity otherwise in normal ranges of motion. His right upper extremity is unremarkable for any changes from his baseline which he does have some discoordination but is able to generally move his right arm in normal ranges. His lower extremities remarkable for bilateral nonpitting edema but he has ability to move at the hip knee and ankle joints. Neuro: COMMON NORMALS: patient oriented x3, moves all extremities, no focal motor deficits and no sensory deficits noted Psych: COMMON NORMALS: mental status grossly normal Skin: COMMON NORMALS: no rashes or lesions noted, turgor normal and no jaundice GENERAL SKIN EXAM: no rashes or lesions noted, turgor normal and ecchymosis Course Reevaluation(s): Reevaluation #1: Chest CT is remarkable and that there apparently is consolidation in the left upper lobe consistent with pneumonia.Will consult oncology at [facility] to see if a would recommend admission at that facility. Time: 15:57 Reevaluation #2: Discussed current findings and [place] for transfer. Also discussed with oncology at [facility] who agreed except the patient in transfer. Time: 17:05 Consultations: Consultation #1: Spoke with Dr. Pace at [facility] who agreed to accept the patient in transfer. Time: 17:07 Vital Signs: Vital signs: Vital Signs Respiratory Rate 16 03/16/22 16:48 Pulse Oximetry 93 03/16/22 16:48 MDM - Chest Pain Medical Decision Making Patient with stage IV metastatic prostate cancer being treated by oncology at [facility] who presented to the emergency department here with left-sided chest pain ultimately found to have a pneumonia on CT scan. He is relatively neutropenic and was given loading dose of antibiotics. He remained hemodynamically stable after consider consulting oncology service they agreed to accept the patient in transfer. Medical Records I reviewed the patient's medical records. Lab Data I reviewed the patient's lab results. : 03/16/22 13:45 03/16/22 13:[address] 03/16/22 13:16 IMPRESSION: There is patchy left upper lobe consolidation suggestive of pneumonia. Follow-up is recommended to ensure expected resolution. Findings are consistent with diffuse osseous metastatic disease. Bilateral adrenal masses are suspicious for metastatic disease. Laboratory Results WBC 0.9 10^3/uL (4.0-10.0) L* 03/16/22 13:45 RBC 3.19 10^6/uL (4.1-5.3) L 03/16/22 13:45 Hgb 9.1 g/dL (11.7-16.6) L 03/16/22 13:45 Hct 27.3 % (42.0-52.0) L 03/16/22 13:45 MCV 85.6 fl (80-94) D 03/16/22 13:45 MCH 28.5 pg (28.0-34.0) 03/16/22 13:45 MCHC 33.3 g/dL (30.0-36.0) D 03/16/22 13:45 RDW 17.3 % (12.1-15.1) H 03/16/22 13:45 Plt Count 36 10^3/cmm (130-400) L D 03/16/22 13:45 MPV 11.0 fL (7.4-10.4) H 03/16/22 13:45 Lymph % (Auto) Not Reportable 03/16/22 13:45 [place] % (Auto) Not Reportable 03/16/22 13:45 Neut # (Auto) [employer] 03/16/22 13:45 Lymph # (Auto) Not Reportable 03/16/22 13:45 [place] # (Auto) Not Reportable 03/16/22 13:45 Total Counted 50 (0-100) 03/16/22 13:45 Atypical Lymphs % 0.0 % (0-5) 03/16/22 13:45 Absolute Neutrophils 0.6 10^3/cmm (1.4-6.5) L* 03/16/22 13:45 Segmented Neutrophils 60 % 03/16/22 13:45 Abs Segm Neuts (Man) 0.5 10/cmm (1.6-7.1) L 03/16/22 13:45 Band Neutrophils 6.0 % 03/16/22 13:45 Abs Band Neuts (Man) 0.1 10^3/cmm (0.0-1.2) 03/16/22 13:45 Absolute Lymphocytes 0.2 10^3/cmm (1.2-3.4) L 03/16/22 13:45 Lymphocytes (Manual) 26 % 03/16/22 13:45 Monocytes (Manual) 0.0 % 03/16/22 13:45 Absolute Monocytes 0.0 10^3/cmm (0.1-0.6) L 03/16/22 13:45 Eosinophils (Manual) 0 % 03/16/22 13:45 Absolute Eosinophils 0.0 10^3/cmm (0.0-0.7) 03/16/22 13:45 Basophils (Manual) 0.0 % 03/16/22 13:45 Absolute Basophils 0.0 10^3/cmm (0.0-0.2) 03/16/22 13:45 Metamyelocytes 8.0 % 03/16/22 13:45 Platelet Estimate Decreased (Normal) 03/16/22 13:45 Poikilocytosis Trace 03/16/22 13:45 Anisocytosis 1+ H 03/16/22 13:45 Sodium 131 mmol/L (136-145) L 03/16/22 13:45 Potassium 5.2 mmol/L (3.5-5.1) H 03/16/22 13:45 Chloride 95 mmol/L (98-107) L 03/16/22 13:45 Carbon Dioxide 24 mmol/L (22-29) 03/16/22 13:45 Anion Gap 17.2 (5-19) 03/16/22 13:45 BUN 40 mg/dL (8-23) H 03/16/22 13:45 Creatinine 1.3 mg/dL (0.7-1.2) H 03/16/22 13:45 GFR Calculation 55.9 mL/min (90-130) L 03/16/22 13:45 Glucose 135 mg/dL (65-115) H 03/16/22 13:45 Calculated Osmolality 284 mOsm/kg (285-295) L 03/16/22 13:45 Calcium 6.6 mg/dL (8.5-10.5) L 03/16/22 13:45 Total Bilirubin 0.6 mg/dL (0.15-1.2) 03/16/22 13:45 AST 75 U/L (0-40) H 03/16/22 13:45 ALT 33 U/L (0-41) 03/16/22 13:45 Alkaline Phosphatase 438 IU/L (40-130) H 03/16/22 13:45 Troponin T Baseline 18 ng/L (0-15) H 03/16/22 13:45 Troponin T 120 Minute 16.65 ng/L (0-15) H 03/16/22 16:00 Delta Troponin T -1.35 ABS# (0-10) L 03/16/22 16:00 Total Protein 4.9 g/dL (6.6-8.7) L 03/16/22 13:45 Albumin 3.0 g/dL (3.5-5.2) L 03/16/22 13:45 Globulin 1.9 g/dL (1.3-4.6) 03/16/22 13:45 EKG Data EKG 1: I personally reviewed and interpreted this EKG as follows: EKG interpretation time: 14:01 Interpretation: EKG shows a resting ventricular rate of 66 bpm consistent with sinus rhythm. He has a normal MN interval. QRS duration is normal. QTc is normal. Normal axis. No acute ST-T wave changes noted. Discharge Plan Discharge Patient Disposition: Xfer Short-Term Hosp Clinical Impression: Pneumonia, Prostate cancer, Pancytopenia Condition: Stable Prescriptions: No Action gabapentin 300 mg capsule 300 mg PO BEDTIME 0RF furosemide 20 mg tablet 20 mg PO QAM 0RF ondansetron 4 mg tablet,disintegrating 4 mg PO Q8H PRN (Reason: nausea and vomiting) Qty: 30 1RF multivitamin [Multiple Vitamins] Tablet 1 tab PO BEDTIME 0RF hydrocodone-acetaminophen 5-325 mg tablet 2 tab PO Q8H PRN (Reason: Pain) 0RF tamsulosin 0.4 mg capsule 0.4 mg PO BID 0RF pantoprazole 40 mg tablet,delayed release (DR/EC) 40 mg PO BEDTIME 0RF prochlorperazine maleate [Compazine] 10 mg Tablet 10 mg PO Q4H PRN (Reason: Mild Nausea) Qty: 30 3RF lorazepam 1 mg Tablet 0.5 - 1 mg PO Q6H PRN (Reason: Severe Nausea) Qty: 30 3RF albuterol sulfate 2.5 mg /3 mL (0.083 %) solution for nebulization 2.5 mg inhalation Q6H PRN (Reason: Shortness Of Breath) 0RF cyanocobalamin (vitamin B-12) [Vitamin B-12] 1,000 mcg Tablet 1,000 mcg PO DAILY 0RF vitamin B complex Tablet 1 tab PO QAM 0RF amiodarone 200 mg tablet 200 mg PO BEDTIME 0RF prednisone 5 mg tablet See Rx Instructions .ROUTE .COMPLEX 0RF Rx Instructions: 5 mg orally bid Take on days 1-21 of each cycle potassium chloride 20 mEq tablet extended release 20 meq PO BEDTIME 0RF Decadron 4 mg tablet 6 mg PO .TAPERING DOSE 0RF Acidophilus Capsule 5,000 mmu cells PO DAILY 0RF memantine 5 mg Tablet 5 mg PO QID 0RF ramelteon 8 mg Tablet 8 mg PO BEDTIME 0RF levetiracetam 750 mg tablet 750 mg PO BID Qty: 60 0RF Referrals: Jay Baker DO [Primary Care Provider] - Coding Level of Care Code ED Sports Commentator for Chg Fwd Exam Comprehensive
--- NOTE | 2022-03-16 13:16 | CTR_ITS ---
PROCEDURE INFORMATION: Exam: CT Chest Without Contrast; Diagnostic Exam date and time: 03/16/2022 2:07 PM Age: 61 years old Clinical indication: Pain; Left-sided; Additional info: Left chest pain TECHNIQUE: Imaging protocol: Diagnostic computed tomography of the chest without contrast. Radiation optimization: All CT scans at this facility use at least one of these dose optimization techniques: automated exposure control; mA and/or kV adjustment per patient size (includes targeted exams where dose is matched to clinical indication); or iterative reconstruction. COMPARISON: CT angio chest PE protcl [id number] 02/21/2020 3:35 AM RADIATION DOSE METRICS: Total DLP (mGy-cm): 798.71 FINDINGS: Lungs: There is patchy consolidation in the left upper lobe of the lung. No dominant lung mass. There is a calcified granuloma in the right upper lobe of the lung.There is probable atelectasis/scar in the lungs. Pleural spaces: Unremarkable. No pneumothorax. No pleural effusion. Heart: There is calcification of the left anterior descending coronary artery. No cardiomegaly. No pericardial effusion. Lymph nodes: Unremarkable. No enlarged lymph nodes. Vasculature: Unremarkable. No aortic aneurysm. Adrenal glands: There is a right adrenal mass measuring 4.3 x 3.7 cm and a left adrenal mass measuring 5.7 x 5 cm. There are multifocal liver cysts. Bones/joints: There is multifocal sclerosis throughout the visualized thoracic and lumbar spine and also the bilateral ribs, bilateral shoulders and bilateral clavicle and sternum. Soft tissues: Unremarkable. CT/CT chest wo con [id number] IMPRESSION: There is patchy left upper lobe consolidation suggestive of pneumonia. Follow-up is recommended to ensure expected resolution. Findings are consistent with diffuse osseous metastatic disease. Bilateral adrenal masses are suspicious for metastatic disease.
--- NOTE | 2022-03-16 13:17 | ECG_ITS ---
[facility] Test Date: 2022-03-16 Pat Name: Cj Gleason Department: Room: Gender: Male Nurse Licensed Practical: : 1960 Requested By: Ted Thomas Order Number: [id number] Perera MD: Jimy Ahmadi M.D. Measurements Intervals [place] Rate: 66 P: 30 MN: 208 QRS: 15 QRSD: 99 T: 39 QT: 444 QTc: 467 Interpretive Statements SINUS RHYTHM POSSIBLE RIGHT VENTRICULAR CONDUCTION DELAY [RSR (QR) IN V1/V2] Compared to ECG 03/15/2022 10:26:41 Incomplete right bundle-branch block no longer present Electronically Signed On 03-17-2022 8:09:05 CDT by Jimy Ahmadi M.D. [id number]
[2022-03-16 14:01] LABS: Hematocrit 27.3 % (42.0-52.0); Hemoglobin 9.1 g/dL (11.7-16.6); Mean Corpuscular HGB Conc 33.3 g/dL (30.0-36.0); Mean Corpuscular Hemoglobin 28.5 pg (28.0-34.0); Mean Corpuscular Volume 85.6 fl (80-94); Platelet Count 36 10^3/cmm (130-400); Red Blood Count 3.19 10^6/uL (4.1-5.3); Red Cell Distribution Width 17.3 % (12.1-15.1)
[2022-03-16 14:24] LABS: Alanine Aminotransferase 33 U/L (0-41); Alkaline Phosphatase 438 IU/L (40-130); Anion Gap 17.2 (5-19); Aspartate Amino Transferase 75 U/L (0-40); Blood Urea Nitrogen 40 mg/dL (8-23); Calcium 6.6 mg/dL (8.5-10.5); Carbon Dioxide 24 mmol/L (22-29); Chloride 95 mmol/L (98-107); Globulin 1.9 g/dL (1.3-4.6); Glomerular Filtration Rate 55.9 mL/min (90-130); Glucose 135 mg/dL (65-115); Osmolality Calculated 284 mOsm/kg (285-295); Potassium 5.2 mmol/L (3.5-5.1); Sodium 131 mmol/L (136-145); Total Bilirubin 0.6 mg/dL (0.15-1.2); Total Protein 4.9 g/dL (6.6-8.7)
[2022-03-16 14:25] LABS: Troponin(5th) Baseline 18 ng/L (0-15)
[2022-03-16 14:27] LABS: Slide Review Slide Review Perform
[2022-03-16 14:29] LABS: Absolute Segmented Neutrophil 0.5 10/cmm (1.6-7.1); Band Neutrophils Absolute 0.1 10^3/cmm (0.0-1.2); Eosinophils 0 %; Lymphocytes 26 %; Lymphocytes Absolute 0.2 10^3/cmm (1.2-3.4); Platelet Estimate Decreased (Normal); Segmented Neutrophils 60 %; Total Cells Counted 50 (0-100)
[2022-03-16 14:30] LABS: Anisocytosis 1+; Poikilocytosis Trace
[2022-03-16 14:31] LABS: Absolute Neutrophil 0.6 10^3/cmm (1.4-6.5)
[2022-03-16 14:32] LABS: White Blood Count 0.9 10^3/uL (4.0-10.0)
[2022-03-16] MEDS: morphine 4 mg/mL SDV 1 mL IVP ×3 (15:01→20:46)
--- NOTE | 2022-03-16 15:17 | ECG_ITS ---
[facility] Test Date: 2022-03-16 Pat Name: Cj Gleason Department: Room: Gender: Male Hammer Heater: : 1960 Requested By: Ted Thomas Order Number: [id number] Perera MD: Jimy Ahmadi M.D. Measurements Intervals [place] Rate: 87 P: 35 UT: 223 QRS: 15 QRSD: 101 T: 28 QT: 385 QTc: 465 Interpretive Statements SINUS RHYTHM WITH FIRST DEGREE AV BLOCK INCOMPLETE RIGHT BUNDLE BRANCH BLOCK [90+ ms QRS DURATION, TERMINAL R IN V1/V2, 40+ ms S IN I/aVL/V4/V5/V6] Compared to ECG 03/16/2022 13:53:49 First degree AV block now present Incomplete right bundle-branch block now present Electronically Signed On 03-17-2022 18:13:47 CDT by Jimy Ahmadi M.D. [id number]
[2022-03-16] MEDS: lactated ringers 1,000 ML 150 ML IV (15:31)
[2022-03-16 16:30] LABS: Troponin 5 2HR 16.65 ng/L (0-15)
[2022-03-16 16:31] LABS: Troponin 5 2HR Delta -1.35 ABS# (0-10)
[2022-03-16 17:12] LABS: SARS Covid-2 Antigen Negative (Negative)
[2022-03-16] MEDS: piperacillin-tazobactam 4.5 GM in sodium chloride 0.9% (plus) 50 ML IV (17:48)
[2022-03-16] MEDS: HYDROcodone-acetaminophen 5-325 mg Tablet 2 TAB PO (20:46)
[2022-03-16 20:59] LABS: Troponin 5 6HR 19.41 ng/L (0-15)
[2022-03-16 21:22] LABS: Troponin 5 6HR Delta 1.41 ng/L (0-12)
== END 2022-03-16 20:47 | disposition short-term general hospital (02) ==
PROVIDERS: Emergency Provider Emergency Medicine; PCP Electrodiagnostic Medicine
DX: J18.9 Pneumonia, unspecified organism (principal); C61 Malignant neoplasm of prostate; D61.818 Other pancytopenia; I48.91 Unspecified atrial fibrillation; E11.9 Type 2 diabetes mellitus without complications; E78.5 Hyperlipidemia, unspecified
CPT/HCPCS: 36415; 71250; 80053; 84484; 85007; 85025; 87040; 87426; 93005; 96374; 96375; 96376; 99285; J2270; J2543